=== PATIENT | female | born 1990 | race Native Hawaiian/Other Pacific Islander ===

== ENCOUNTER → 2018-01-02 15:11 | Outpatient (CLI) | payer OTHER, SELFPAY ==
[2018-01-02 15:46] LABS: Appearance Urine UA CLEAR; Bilirubin Urine UA NEGATIVE (NEGATIVE); Color Urine UA YELLOW; Glucose Urine UA NEGATIVE (Normal); Ketones Urine UA NEGATIVE (NEGATIVE); Leukocyte Esterase Urine UA NEGATIVE (NEGATIVE); Nitrite Urine UA Negative (Negative); Occult Blood Urine UA TRACE-LYSED (Negative); Protein Urine UA NEGATIVE (Negative); Specific Gravity Urine UA 1.015 (1.000-1.035); Urobilinogen Urine UA 0.2 E.U./dL (0.2)
[2018-01-02 15:47] LABS: Add Manual Diff / Slide Review NO; Basophils Percent Auto 0.7 % (0-2); Eosinophils Percent Auto 1.6 % (2-4); Hemoglobin 14.6 g/dL (12.0-16.0); Lymphocytes Percent Auto 22.8 % (25-40); Mean Corpuscular Hemoglobin 28.2 PG (26-34); Neutrophils Absolute Auto 5200 /uL (3000-5900); Neutrophils Percent Auto 66.9 % (50-75); Platelet Count 297 X10^3/uL (150-400); Red Blood Cell Count 5.18 X10^6/uL (4.0-5.2); Red Cell Distribution Width 12.9 % (11.6-14.8); White Blood Cell Count 7.8 X10^3/uL (4.5-11.0)
[2018-01-02 17:32] LABS: HCG Quantitative /Beta subunit 42845 mIU/mL
[2018-01-03 18:42] LABS: Hepatitis B Surface Antigen NEGATIVE s/c (NEGATIVE); Rubella Antibody IgG 28.1 IU/mL (>15)
[2018-01-03 18:56] LABS: HIV 1 and 2 Antibody NEGATIVE (NEGATIVE); Hep C Virus Ab w/Reflex Quant NEGATIVE s/c (NEGATIVE)
[2018-01-04 14:53] LABS: HSV 2 IGG AB < 0.90 index (< 0.90); HSV1IGG < 0.90 index (< 0.90)
[2018-01-09 20:49] LABS: Rapid Plasma Reagin NON-REACTIVE
== END ==
PROVIDERS: Family Provider Family Medicine; PCP Family Medicine; Visit Provider Family Medicine
DX: O02.0 Blighted ovum and nonhydatidiform mole (principal); Z34.90 Encounter for supervision of normal pregnancy, unspecified, unspecified trimester; Z34.81 Encounter for supervision of other normal pregnancy, first trimester; Z3A.01 Less than 8 weeks gestation of pregnancy
CPT/HCPCS: 36415; 80055; 81003; 84702; 86695; 86696; 86703; 86787; 86803; 86850; 86900; 86901; 87086

== ENCOUNTER → 2018-02-05 11:30 | Outpatient (CLI) | payer OTHER, SELFPAY ==
[2018-02-11 11:48] LABS: AFP, Serum 21.1 ng/mL; Calc Gestational Age 15.7; Cigarette Smoker N; Donated Egg NOT GIVEN; Donor Egg Age NOT GIVEN; Estriol, Free 0.77 ng/mL; Inhibin A, Dimeric 155 pg/mL; Maternal Ethnicity OTHER; Maternal Weight 207 lbs; Number of Fetuses 1; Previous Pregnancy Down Syndro NOT GIVEN; hCG, MoM 0.72
== END ==
PROVIDERS: Family Provider Family Medicine; PCP Family Medicine; Visit Provider Family Medicine
DX: Z34.82 Encounter for supervision of other normal pregnancy, second trimester (principal)
CPT/HCPCS: 36415; 82105; 82677; 84702; 86336

== ENCOUNTER → 2018-03-05 08:10 | Outpatient (CLI) | payer OTHER, SELFPAY ==
--- NOTE | 2018-03-05 08:11 | DI.US.S_ITS ---
PROCEDURE: US OB >= 14 WEEKS FETUS INDICATIONS: ANATOMIC SURVEY OUTSIDE/PRIOR DATING DATA: Last menstrual period (LMP): Unknown. LMP-based estimated date of delivery (MANDY): N./A.. First dating scan (date and location): 01/06/18. Estimated date of delivery (MANDY) from first dating scan: 07/25/18. TECHNIQUE: Real-time scanning was performed of the fetus, with image documentation and biometric measurements. Endovaginal scanning: No COMPARISON: [facility], , OB <= 14 WK FETUS ADD GEST, 01/06/2018, 9:00. FINDINGS: General: A single living intrauterine gestation is present. Presentation: Transverse. Placenta: Placental position is anterior, without previa. Amniotic fluid index: 16.6 cm, normal range is 5-24 cm. heart rate: 152 beats per minute. Maternal cervical canal: 6.8 cm long. Normal lower limit is 2.5 cm. biometrics: Biparietal diameter: 20 weeks 2 days Head circumference: 20 weeks 3 days Abdominal circumference: 20 weeks 3 days Femur length: 20 weeks Estimated gestational age from initial scan: 19 weeks 5 days Composite gestational age from present scan: 20 weeks 2 days Estimated weight and percentile: 344 g; the 78th percentile Measurement variability for biometric dating: +/- 7 days from 14 weeks to 15 weeks 6 days gestation, +/- 10 days from 16 weeks to 21 weeks 6 days gestation, +/- 2 weeks from 22 weeks to 27 weeks 6 days gestation, +/- 3 weeks for 28 weeks gestation or later. weight reference: 4500 g or EFW >90/95% is considered macrosomia or large for gestational age. EFW <10% is small for gestational age. EFW 5% or less is considered intra-uterine growth restriction. Anatomic survey: Neuro: Ventricles are non-dilated at less than 10 mm. Cisterna magna is normal at 3-11 mm. Cerebellum is normal in size and morphology. Nuchal skin fold: Normal at less than 6 mm between 14-21 weeks gestational age. Face: Nose and lips, facial profile are normal. Spine: No evidence for spina bifida. Heart: 4-chambered heart is present, with normal ventricular outflow tracts. Diaphragm: Diaphragm is intact. Stomach: Left-sided stomach is present. Kidneys: No hydronephrosis. Normal is less than 5 mm in 2nd trimester, less than 7 mm in 3rd trimester. Cord: 3-vessel cord has orthotopic insertion. Bladder: Normal in size. Extremities: All 4 extremities identified. IMPRESSION: 1. Single living IUP redemonstrated and interval growth is normal. 2. Normal anatomic survey. Dictated by: Renny Pearson [facility] Interpreted: Donavan Lopez MD on 03/05/2018 at 11:21 Approved by: Donavan Lopez M.D. on 03/05/2018 at 13:22
== END ==
PROVIDERS: PCP Family Medicine; Visit Provider Family Medicine
DX: Z34.82 Encounter for supervision of other normal pregnancy, second trimester (principal); Z36.89 Encounter for other specified antenatal screening; Z3A.20 20 weeks gestation of pregnancy
CPT/HCPCS: 76811

== ENCOUNTER → 2018-04-02 09:52 | Outpatient (CLI) | payer OTHER, SELFPAY ==
[2018-04-02 12:14] LABS: Hematocrit 37.9 % (36-46); Hemoglobin 12.7 g/dL (12.0-16.0)
[2018-04-02 12:27] LABS: GTT (PREG) 1 Hour PP 50gm Dose 140 mg/dL (76-139)
== END ==
PROVIDERS: PCP Family Medicine; Visit Provider Family Medicine
DX: Z34.82 Encounter for supervision of other normal pregnancy, second trimester (principal); Z3A.26 26 weeks gestation of pregnancy
CPT/HCPCS: 36415; 82950; 85014; 85018

== ENCOUNTER 2018-05-12 11:10 | Observation (INO) | payer OTHER, SELFPAY ==
--- NOTE | 2018-05-12 12:17 | DI.US.S_ITS ---
PROCEDURE: US OB TRANSVAGINAL INDICATIONS: cervical length OUTSIDE/PRIOR DATING DATA: Last menstrual period (LMP): Unknown. First dating scan (date and location): 01/06/18. Estimated date of delivery (MANDY) from first dating scan: 07/25/18. TECHNIQUE: Real-time scanning was performed of the fetus, with image documentation. COMPARISON: [facility], , US OB <= 14 WK FETUS ADD GEST, 01/06/2018, 9:00. [facility], , US OB >= 14 WEEKS FETUS, 03/05/2018, 8:45. FINDINGS: A single living intrauterine gestation is present. Presentation: Vertex heart rate: 152 beats per minute. Maternal cervical canal: 4.7 cm long. Normal lower limit is 2.5 cm. No evidence of endocervical fluid distention or funneling. Estimated gestational age from initial scan: 29 weeks 3 days. IMPRESSION: 1. Limited study demonstrates a single living intrauterine in vertex position. 2. Cervix is normal in length without endocervical fluid distention or funneling. Dictated by: Brando Rogers M.D. on 05/12/2018 at 13:29 Approved by: Brando Rogers M.D. on 05/12/2018 at 13:31
[2018-05-12] MEDS: NIFEdipine 10 MG CAPSULE PO ×4 (12:30→13:35)
[2018-05-12 13:35] LABS: Bacteria Urine None Seen; RBC Urine None Seen (0-5/HPF)
[2018-05-12 13:46] LABS: Culture Indicated Urine Cult Not Indicated; Squamous Epithelial Cell Urine 0-1 /HPF; WBC Urine 0-1/HPF (0-5/HPF)
== END 2018-05-12 14:15 | disposition home or self-care (01) ==
PROVIDERS: Admitting Provider Family Medicine; PCP Family Medicine; Visit Provider Family Medicine
DX: O60.03 Preterm labor without delivery, third trimester (principal); Z3A.29 29 weeks gestation of pregnancy; O26.23 Pregnancy care for patient with recurrent pregnancy loss, third trimester
CPT/HCPCS: 59025; 59050; 76817; 81015; G0378; G0379

== ENCOUNTER → 2018-05-22 09:11 | Outpatient (CLI) | payer OTHER, SELFPAY ==
--- NOTE | 2018-05-22 09:14 | DI.US.S_ITS ---
PROCEDURE: US OB LIMITED INDICATIONS: size and dates OUTSIDE/PRIOR DATING DATA: Last menstrual period (LMP): None available. LMP-based estimated date of delivery (MANDY): Not applicable. First dating scan (date and location): 01/06/18. Estimated date of delivery (MANDY) from first dating scan: 07/25/18. TECHNIQUE: Real-time scanning was performed of the fetus, with image documentation. Endovaginal scanning: Yes COMPARISON: None. FINDINGS: A single living intrauterine gestation is present. Presentation: Vertex Placenta: Placental position is anterior, without previa. Amniotic fluid index: 20.1 cm, normal range is 5-24 cm. heart rate: 153 beats per minute. Maternal cervical canal: 4.7 cm long. Normal lower limit is 2.5 cm. Estimated gestational age from initial scan: 30 week 6 day. BPD: 8.3 cm, 33 weeks 2 days HC: 31.0 cm, 34 week 5 days A.c.: 13.7 cm, 34 weeks 5 days FL: 5.9 cm 30 weeks 4 days Estimated gestational age based on current study is 33 weeks 2 days. Estimated weight is 2189 g and is at 98%. IMPRESSION: Single live intrauterine with fetus in vertex presentation. heart rate is 153 beats per minute. Cervical length is 4.7 cm. Estimated gestational age based on initial study has 30 week 6 day. Estimated gestational age based on current study is 33 weeks 2 days. Estimated weight is 2189 g. Dictated by: Donavan Lopez M.D. on 05/22/2018 at 11:06 Approved by: Donavan Lopez M.D. on 05/22/2018 at 11:11
== END ==
LOC: US 09:13
PROVIDERS: PCP Family Medicine; Visit Provider Family Medicine
DX: O47.9 False labor, unspecified (principal); Z3A.30 30 weeks gestation of pregnancy
CPT/HCPCS: 76815; 76830

== ENCOUNTER 2018-06-02 14:25 | Observation (INO) | payer OTHER, SELFPAY ==
[2018-06-02] MEDS: NIFEdipine 10 MG CAPSULE PO ×3 (16:00→16:45)
--- NOTE | 2018-06-04 12:56 | PM.OBTRLD ---
Visit Information Visit Information Date of evaluation: 06/02/18 Primary OB Provider: Juan Antonio Mack On-call OB Provider: Carla Sanchez Reason for Evaluation: Yes pre-term labor Vital Signs Vital Signs: Blood pressure 132/66, pulse of 89, temperature 36.5? PFSH Social History marital status: household members: spouse and children Smoking Status: Former smoker alcohol intake: never substance use type: does not use Review of Systems Review of Systems Patient complaining of contractions. She has a history of 2 prior labors with 1 delivery. She has been on nifedipine for some time but stopped it due to side effects. Patient denies any leakage of fluid. Good movement. All systems reviewed & are unremarkable except as noted in HPI and below Evaluation Evaluation Baseline heart rate: 150 Variability: Moderate (11-25) monitor accelerations: Present monitor decelerations: Absent Contraction Frequency (minutes): 8 Uterine Contraction Intensity: Mild Category of Tracing: I Diagnosis, Plan/Disposition Final Diagnosis (1) Premature labor: Current Visit: No Status: Acute (2) 32 weeks gestation of : Current Visit: No Status: Acute Plan/Disposition Plan: Patient was given 2 oral doses of short-acting nifedipine. Her contractions decreased. She was sent home to continue taking her long-acting nifedipine. OB Disposition: home
== END 2018-06-02 17:05 | disposition home or self-care (01) ==
PROVIDERS: Admitting Provider Family Medicine; PCP Family Medicine; Visit Provider Family Medicine
DX: O60.03 Preterm labor without delivery, third trimester (principal); Z3A.32 32 weeks gestation of pregnancy; O26.23 Pregnancy care for patient with recurrent pregnancy loss, third trimester
CPT/HCPCS: 59025; 59050; G0378; G0379

== ENCOUNTER 2018-06-09 15:38 | Outpatient (CLI) | payer OTHER, SELFPAY | END 2018-06-09 17:37 | disposition home or self-care (01) | LOC: LABOR 16:17 → OB 06-11 12:54 | PROVIDERS: PCP Family Medicine; Visit Provider Family Medicine | DX: O60.03 Preterm labor without delivery, third trimester (principal); Z3A.33 33 weeks gestation of pregnancy; O26.23 Pregnancy care for patient with recurrent pregnancy loss, third trimester | CPT/HCPCS: 59025; G0378; G0379 ==

== ENCOUNTER 2018-06-15 10:52 | Observation (INO) | payer OTHER, SELFPAY ==
--- NOTE | 2018-06-15 12:21 | PM.OBTRLD ---
Visit Information Visit Information Date of evaluation: 06/15/18 Primary OB Provider: Juan Antonio Mack On-call OB Provider: Carla Sanchez Reason for Evaluation: Yes non-stress test non-stress test reason: other (Patient fell and bathroom and hit her stomach on the toilet) PFSH Social History marital status: household members: spouse and children Smoking Status: Former smoker alcohol intake: never substance use type: does not use Exam Narrative Exam Narrative: Abdomen is soft. She has tenderness on the left side of her abdomen but no tenderness to her uterus on the right side. No obvious bruising. Evaluation Evaluation Baseline heart rate: 140 Variability: Moderate (11-25) monitor accelerations: Present monitor decelerations: Absent Contraction Frequency (minutes): 7 Uterine Contraction Intensity: Mild Category of Tracing: I Diagnosis, Plan/Disposition Final Diagnosis (1) Blunt abdominal trauma: Current Visit: Yes Status: Acute (2) 33 weeks gestation of : Current Visit: Yes Status: Acute Plan/Disposition Plan: Patient with blunt trauma to her abdomen but no evidence complications. Patient has been having mild cramping and is on nifedipine. She is to return if she has vaginal bleeding. Increasing rather than decreasing pain. Leakage of fluid or vaginal bleeding.
== END 2018-06-15 12:35 | disposition home or self-care (01) ==
PROVIDERS: Admitting Provider Specialist; PCP Family Medicine; Visit Provider Specialist
DX: O9A.213 Injury, poisoning and certain other consequences of external causes complicating pregnancy, third trimester (principal); Z3A.33 33 weeks gestation of pregnancy; S39.81XA Other specified injuries of abdomen, initial encounter; W18.39XA Other fall on same level, initial encounter
CPT/HCPCS: 59025; 59050; G0378; G0379

== ENCOUNTER → 2018-06-24 13:55 | Outpatient (CLI) | payer OTHER, SELFPAY ==
[2018-06-25 12:24] LABS: Strep Grp B PCR NEG for Grp B Strep
== END ==
LOC: LAB 13:55
PROVIDERS: PCP Family Medicine; Visit Provider Family Medicine
DX: Z34.83 Encounter for supervision of other normal pregnancy, third trimester (principal); Z3A.35 35 weeks gestation of pregnancy
CPT/HCPCS: 87653

== ENCOUNTER 2018-06-27 13:20 | Outpatient (CLI) | payer OTHER, SELFPAY ==
--- NOTE | 2018-06-27 22:17 | P.TNLD_ITS ---
Visit Information Visit Information Date of evaluation: 06/27/18 Primary OB Provider: Juan Antonio Mack On-call OB Provider: Pari Ballard Reason for Evaluation: Yes rule out labor PFSH Social History marital status: household members: spouse and children Smoking Status: Former smoker alcohol intake: never substance use type: does not use Evaluation Evaluation Baseline heart rate: 140 Variability: Moderate (11-25) monitor accelerations: Present monitor decelerations: Absent Uterine Contraction Intensity: Mild Cervical dilation (cm): 0 Cervical effacement (%): 0 station: +4 Diagnosis, Plan/Disposition Final Diagnosis (1) 36 weeks gestation of : Current Visit: No Status: Acute (2) contractions: Current Visit: No Status: Acute Plan/Disposition Plan: 27 year old at 36+1 wks with irregular contractions. Cervix was c losed, thick and high per RN. NST reactive. Discharged home with return precautions. Follow up with Dr. Mack as scheduled. OB Disposition: home
== END 2018-06-27 14:20 | disposition home or self-care (01) ==
LOC: OB 07-01 14:14
PROVIDERS: PCP Family Medicine; Visit Provider Family Medicine
DX: O47.03 False labor before 37 completed weeks of gestation, third trimester (principal); Z3A.36 36 weeks gestation of pregnancy
CPT/HCPCS: 59025; G0378; G0379

== ENCOUNTER 2018-06-29 15:16 | Outpatient (CLI) | payer OTHER, SELFPAY ==
--- NOTE | 2018-06-29 16:03 | PM.OBTRLD ---
Visit Information Visit Information Date of evaluation: 06/29/18 Primary OB Provider: Juan Antonio Mack On-call OB Provider: Pari Ballard Reason for Evaluation: Yes rupture of membranes [facility] Medical History Depression (Chronic ~2008) History of irregular menstrual cycles (Chronic) Chicken pox (Resolved ~1997) MRSA (methicillin resistant Staphylococcus aureus) (Resolved ~2009) Surgical History Status post delivery (06/20/11) Status post delivery (01/20/14) Status post delivery (11/21/16) Family History Father Age: 63 Hypertension Social History marital status: household members: spouse and children Smoking Status: Former smoker alcohol intake: never substance use type: does not use Family History Father Age: 63 Hypertension Social History marital status: household members: spouse and children Smoking Status: Former smoker alcohol intake: never substance use type: does not use Evaluation Evaluation Baseline heart rate: 150 Variability: Moderate (11-25) monitor accelerations: Present monitor decelerations: Absent Non-invasive Membranes Rupture Test: negative Diagnosis, Plan/Disposition Final Diagnosis (1) 36 weeks gestation of : Current Visit: No Status: Acute Plan/Disposition Plan: Patient came in with concerns for ROM. Amnisure was negative. NST reactive. Irregular, non-painful contractions. Patient instructed to follow up in clinic as scheduled.
--- NOTE | 2018-06-29 16:06 | P.TNLD_ITS ---
Visit Information Visit Information Date of evaluation: 06/29/18 Primary OB Provider: Juan Antonio Mack On-call OB Provider: Pari Ballard Reason for Evaluation: Yes rupture of membranes [facility] Medical History Depression (Chronic ~2008) History of irregular menstrual cycles (Chronic) Chicken pox (Resolved ~1997) MRSA (methicillin resistant Staphylococcus aureus) (Resolved ~2009) Surgical History Status post delivery (06/20/11) Status post delivery (01/20/14) Status post delivery (11/21/16) Family History Father Age: 63 Hypertension Social History marital status: household members: spouse and children Smoking Status: Former smoker alcohol intake: never substance use type: does not use Family History Father Age: 63 Hypertension Social History marital status: household members: spouse and children Smoking Status: Former smoker alcohol intake: never substance use type: does not use Evaluation Evaluation Baseline heart rate: 150 Variability: Moderate (11-25) monitor accelerations: Present monitor decelerations: Absent Non-invasive Membranes Rupture Test: negative Diagnosis, Plan/Disposition Final Diagnosis (1) 36 weeks gestation of : Current Visit: No Status: Acute Plan/Disposition Plan: Patient came in with concerns for ROM. Amnisure was negative. NST reactive. Irregular, non-painful contractions. Patient instructed to follow up in clinic as scheduled.
== END 2018-06-29 16:04 | disposition home or self-care (01) ==
LOC: LABOR 16:02 → OB 07-01 14:15
PROVIDERS: PCP Family Medicine; Visit Provider Family Medicine
DX: Z03.71 Encounter for suspected problem with amniotic cavity and membrane ruled out (principal); Z3A.36 36 weeks gestation of pregnancy
CPT/HCPCS: 59025; 84112; G0378; G0379

== ENCOUNTER 2018-07-07 11:33 | Outpatient (CLI) | payer OTHER, SELFPAY ==
--- NOTE | 2018-07-07 12:41 | DI.US.S_ITS ---
PROCEDURE: US OB LIMITED INDICATIONS: check scar tissue from previous OUTSIDE/PRIOR DATING DATA: Last menstrual period (LMP): None available. LMP-based estimated date of delivery (MANYD): Not applicable. First dating scan (date and location): 01/06/2018. Estimated date of delivery (MANDY) from first dating scan: 07/25/2018. TECHNIQUE: Real-time scanning was performed of the fetus, with image documentation. Endovaginal scanning: Yes COMPARISON: [facility], OB >= 14 WEEKS FETUS, 03/05/2018, 8:45. [facility] OB TRANSVAGINAL, 05/12/2018, 12:52. [facility] OB LIMITED, 05/22/2018, 9:57. FINDINGS: A single living intrauterine gestation is present. Presentation: Vertex Placenta: Placental position is anterior, without previa. Amniotic fluid index: 17.1 cm, normal range is 5-24 cm. heart rate: 157 beats per minute. Maternal cervical canal: 3.7 cm long. Normal lower limit is 2.5 cm. Estimated gestational age from initial scan: 37 week 3 day. Note is made of near complete nuchal cord. The scar is at the placenta edge. IMPRESSION: 1. A single living intrauterine gestation redemonstrated. 2. Near complete nuchal cord. 3. The scar is at the placenta edge. Dictated by: Roman Lindo M.D. on 07/07/2018 at 16:55 Approved by: Roman Lindo M.D. on 07/07/2018 at 17:01
== END 2018-07-07 13:25 | disposition home or self-care (01) ==
LOC: LABOR 12:00 → OB 07-08 11:16
PROVIDERS: PCP Family Medicine; Visit Provider Family Medicine
DX: O26.23 Pregnancy care for patient with recurrent pregnancy loss, third trimester (principal); R10.9 Unspecified abdominal pain; Z3A.37 37 weeks gestation of pregnancy
CPT/HCPCS: 59025; 59050; 76815; G0378; G0379

== ENCOUNTER 2018-07-10 23:32 | Outpatient (CLI) | payer OTHER, SELFPAY | END 2018-07-11 00:10 | disposition home or self-care (01) | LOC: LABOR 23:39 → OB 07-11 11:43 | PROVIDERS: PCP Family Medicine | DX: Z36.9 Encounter for antenatal screening, unspecified (principal) | CPT/HCPCS: 59025; G0378; G0379 ==

== ENCOUNTER → 2018-07-11 12:32 | Outpatient (CLI) | payer OTHER, SELFPAY ==
[2018-07-11 13:01] LABS: Add Manual Diff / Slide Review NO; Basophils Absolute Auto 100 /uL (0-100); Basophils Percent Auto 1.1 % (0-2); Eosinophils Absolute Auto 100 /uL (0-450); Eosinophils Percent Auto 1.1 % (2-4); Hematocrit 38.7 % (36-46); Hemoglobin 13.1 g/dL (12.0-16.0); Lymphocytes Absolute Auto 1400 /uL (1100-4500); Lymphocytes Percent Auto 21.1 % (25-40); Mean Corpuscular HGB Conc 33.7 % (30-36); Mean Corpuscular Hemoglobin 26.4 PG (26-34); Mean Corpuscular Volume 78.2 fL (80-100); Monocytes Absolute Auto 500 /uL (0-900); Monocytes Percent Auto 7.4 % (3-14); Neutrophils Absolute Auto 4700 /uL (1500-7000); Neutrophils Percent Auto 69.3 % (50-75); Platelet Count 237 X10^3/uL (150-400); Red Blood Cell Count 4.95 X10^6/uL (4.0-5.2); Red Cell Distribution Width 13.6 % (11.6-14.8); White Blood Cell Count 6.8 X10^3/uL (4.5-11.0)
[2018-07-11 15:48] LABS: Alanine Aminotransferase 24 IU/L (9-52); Albumin 3.7 g/dL (3.5-5.0); Albumin Globulin Ratio 1.2 (1.0-2.8); Alkaline Phosphatase 163 U/L (38-126); Aspartate Aminotransferase 17 IU/L (14-36); Bilirubin Total 0.4 mg/dL (0.2-1.3); Blood Urea Nitrogen 9 mg/dL (7-17); Calcium 9.2 mg/dL (8.4-10.2); Carbon Dioxide 22 mmol/L (22-32); Chloride 105 mmol/L (98-107); Estimated Glomerular Filt Rate > 60.0 mL/min (>60); Glucose 64 mg/dL (70-100); HEMOLYSIS < 15 (0-50); Potassium 4.5 mmol/L (3.4-5.1); Sodium 136 mmol/L (137-145); Total Protein 6.7 g/dL (6.3-8.2)
[2018-07-11 15:50] LABS: Creatinine Urine Random 69.1 mg/dL; Protein (Total) Urine Random 19 mg/dL (0-12); Protein Creatinine Ratio Urine 0.27 GRAM/24H
== END ==
PROVIDERS: PCP Family Medicine; Visit Provider Family Medicine
DX: O16.3 Unspecified maternal hypertension, third trimester (principal)
CPT/HCPCS: 36415; 80053; 82570; 84156; 85025

== ENCOUNTER 2018-07-21 05:41 | Inpatient (IN) | payer OTHER, SELFPAY ==
[2018-07-21] VITALS (63 sets, daily range): BP systolic 73–157; BP diastolic 37–88; PULSE 61–104; RESP 7–22; TEMP 35.6–37.3; O2SAT 97–100
--- NOTE | 2018-07-21 | PATH_ITS ---
[facility] Accession Number: [id number] . 01 Material submitted: . fallopian tube - BILATERAL SEGMENTS OF FALLOPIAN TUBES . 02 Diagnosis: Segments of Right and Left Fallopian Tubes (Sterilization Procedure): No significant pathologic change. MRV/07/23/2018 . 02 Electronically signed: . Robi Martinez MD, Pathologist NPI- [id number] . 01 Gross description: . Received in one formalin-filled container, labeled with the patient's name and labeled homa segments of fallopian tubes, are two non-fimbriated, cylindrical-shaped portions of tissue. The first measures 0.9 x 0.6 x 0.6 cm; inked blue, sectioned into three pieces, and entirely submitted in cassette A1. The second piece measures 1.0 x 0.6 x 0.6 cm; inked blue, sectioned into three pieces, and entirely submitted in cassette A2. ([id number]) /FRR . 02 Pathologist provided ICD-10: Z30.2 . 02 CPT . 923340 Specimen Comment: A duplicate report has been generated due to demographic updates. Performed at: 01 [facility] [address], [place], [place] [id number] MD Brando Durant MD Phone: [phone] Performed at: [facility] [address] [place], [place] [id number] MD Dorcas Lemon MD Phone: [phone]
[2018-07-21] MEDS: LACTATED RINGERS 1,000 ML 1000 ML IV ×3 (06:46→10:52)
[2018-07-21] MEDS: CITRIC ACID/SODIUM CITRATE 15 ML SOLUTION 30 ML PO (06:47)
--- NOTE | 2018-07-21 07:11 | PM.HP.1 ---
History of Present Illness Date Patient Seen: 07/21/18 Time Patient Seen: 07:12 Chief complaint: [id number] REPEAT W/BTL Narrative: Patient is a 27-year-old female 9 para 3 estimated due date of 07/25/2018 consistent with LMP early ultrasound. care was complicated by labor this is her 4th and here in the last week has had some hypertension. Patient has been excited to have her baby since 20/6 weeks. And has been regularly in the Center for frequent evaluations because of labor. She was initially on nifedipine and this was stopped at 36 weeks. She has continued to contract. Recent blood pressure evaluation showed elevated blood pressure. But normal AST ALT mildly elevated alkaline phosphatase and mildly elevated urine protein patient has no swelling. Blood pressure is elevated this morning. No headaches blurry vision right upper quadrant pain or swelling and edema. She began care at 11 weeks and had a number of visits throughout . Total weight gains approximately 20 lb. care as previously mentioned was complicated by labor. 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 Family history of high blood pressure history of anemia history of MRSA. Previous and D& C. Family history of depression as well as mom had mild depression. Medications during included vitamins and nifedipine. labs show blood type A positive antibody screen negative hematocrit 43 and hemoglobin 14.6 platelet 297 VDRL negative HIV negative chlamydia and GC negative rubella immune. Hepatitis-C negative 2nd trimester integrated screening negative diabetes screen 140 patient diet changes were recommended. GBS testing was negative ultrasound at 20 weeks was normal. Reviewed with patient and who was at her bedside this morning the procedure including risks benefits and common complications of repeat section X specially since this is her 4th. Patient is anticipated tubal ligation we discussed that with her and her . Written verbal and informed consent was obtained. Her consent was updated. Patient History Family & Social History Social History: household members spouse,children Tobacco & Substance use: Smoking Status Former smoker alcohol intake never Meds Home Medications Medication Instructions Recorded Confirmed Type Vitamins (PRENAVITE) 1 tab PO QDAY #30 tab 04/16/16 03/18/18 Rx guanfacine 2 mg tablet 2 mg PO BEDTIME #30 tab 01/06/18 03/18/18 Rx amoxicillin 875 mg tablet 875 mg PO BID #14 tab 03/18/18 Rx benzonatate 200 mg capsule 200 mg PO TID PRN #30 cap 03/18/18 Rx nifedipine 10 mg capsule 10 mg PO TID PRN #30 cap 05/12/18 Rx nifedipine ER 30 mg 30 mg PO BID #60 tab 05/12/18 Rx tablet,extended release Allergies Allergy/AdvReac Type Severity Reaction Status Date / Time No Known Drug Allergies Allergy Verified 03/18/18 11:42 Exam Narrative Exam Narrative: . General: Alert no apparent distress. Affect is appropriate. [place]illiam it is uncomfortable. HEENT: Neck is supple without lymphadenopathy pupils equal round and reactive. Cardio: S1-S2 regular rate and rhythm. Respiratory: Lungs clear to auscultation. Abdomen: Gravid. Extremities: Normal deep tendon reflexes trace edema. Green: Intermittent contractions heart tones: 130-140 category 1 Assessment & Plan Assessment & Plan narrative: 27-year-old female G9 para 3 patient at 39 weeks gestational age for repeat section. complicated with labor starting at 27 weeks medications stopped 36 week last few days of hypertension although preeclamptic lab work is negative. Reviewed consent with patient and . Patient was consented for with bilateral tubal ligation risks benefits of the procedure were reviewed. This is her 4th . Patient had IV started. heart tracing and toco were reviewed. CBC and blood type and screen were ordered. Patient will have cephazolin on-call for the operating room. Patient will have spinal for anesthesia for the . Questions were answered that the patient and had.
--- NOTE | 2018-07-21 07:18 | P.HP_ITS ---
History of Present Illness Date Patient Seen: 07/21/18 Time Patient Seen: 07:12 Chief complaint: [id number] REPEAT W/BTL Narrative: Patient is a 27-year-old female 9 para 3 estimated due date of 07/25/2018 consistent with LMP early ultrasound. care was complica xuan by labor this is her 4th and here in the last week has had some hypertension. Patient has been excited to have her baby since 20/6 weeks. And has been regularly in the Center for frequent evaluations because of labor. She was initially on nifedipine and this was stopped at 36 weeks. She has continued to contract. Recent blood pressure evaluation showed elevated blood pressure. But normal AST ALT mildly elevated alkaline phosphatase and mildly elevated urine protein patient has no swelling. Blood pressure is elevated this morning. No headaches blurry vision right upper quadrant pain or swelling and edema. She began care at 11 weeks and had a number of visits throughout . Total weight gains approximately 20 lb. care as previously mentioned was complicated by labor. 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 Family history of high blood pressure history of anemia history of MRSA. Previous and D& C. Family history of depression as well as mom had mild depression. Medications during included vitamins and nifedipine. labs show blood type A positive antibody screen negative hematocrit 43 and hemoglobin 14.6 platelet 297 VDRL negative HIV negative chlamydia and GC negative rubella immune. Hepatitis-C negative 2nd trimester integrated screening negative diabetes screen 140 patient diet changes were recommended. GBS testing was negative ultrasound at 20 weeks was normal. Reviewed with patient and who was at her bedside this morning the procedure including risks benefits and common complications of repeat section X specially since this is her 4th. Patient is anticipated tubal ligati on we discussed that with her and her . Written verbal and informed consent was obtained. Her consent was updated. Patient History Family & Social History Social History: household members spouse,children Tobacco & Substance use: Smoking Status Former smoker alcohol intake never Meds Home Medications Medication Instructions Recorded Confirmed Type Vitamins (PRENAVITE) 1 tab PO QDAY #30 tab 04/16/16 03/18/18 Rx guanfacine 2 mg tablet 2 mg PO BEDTIME #30 tab 01/06/18 03/18/18 Rx amoxicillin 875 mg tablet 875 mg PO BID #14 tab 03/18/18 Rx benzonatate 200 mg capsule 200 mg PO TID PRN #30 cap 03/18/18 Rx nifedipine 10 mg capsule 10 mg PO TID PRN #30 cap 05/12/18 Rx nifedipine ER 30 mg 30 mg PO BID #60 tab 05/12/18 Rx tablet,extended release Allergies Allergy/AdvReac Type Severity Reaction Status Date / Time No Known Drug Allergies Allergy Verified 03/18/18 11:42 Exam Narrative Exam Narrative: . General: Alert no apparent distress. Affect is appropriate. [place] it is uncomfortable. HEENT: Neck is supple without lymphadenopathy pupils equal round and reactive. Cardio: S1-S2 regular rate and rhythm. Respiratory: Lungs clear to auscultation. Abdomen: Gravid. Extremities: Normal deep tendon reflexes trace edema. [place]: Intermittent contractions heart tones: 130-140 category 1 Assessment & Plan Assessment & Plan narrative: 27-year-old female G9 para 3 patient at 39 weeks gestational age for repeat section. complicated with labor starting at 27 weeks medications stopped 36 week last few days of hypertension although preeclamptic lab work is negative. Reviewed consent with patient and . Patient was consented for with bilateral tubal ligation risks benefits of the procedure were reviewed. This is her 4th C- section. Patient had IV started. heart tracing and toco were reviewed. CBC and blood type and screen were ordered. Patient will have cephazolin on- call for the operating room. Patient will have spinal for anesthesia for the C- section. Questions were answered that the patient and had.
[2018-07-21 07:21] LABS: Add Manual Diff / Slide Review NO; Basophils Absolute Auto 100 /uL (0-100); Basophils Percent Auto 0.7 % (0-2); Eosinophils Absolute Auto 200 /uL (0-450); Hematocrit 38.7 % (36-46); Hemoglobin 12.6 g/dL (12.0-16.0); Lymphocytes Absolute Auto 1800 /uL (1100-4500); Lymphocytes Percent Auto 22.4 % (25-40); Mean Corpuscular HGB Conc 32.5 % (30-36); Mean Corpuscular Hemoglobin 25.8 PG (26-34); Mean Corpuscular Volume 79.2 fL (80-100); Monocytes Absolute Auto 700 /uL (0-900); Monocytes Percent Auto 8.9 % (3-14); Neutrophils Absolute Auto 5400 /uL (1500-7000); Platelet Count 234 X10^3/uL (150-400); Red Blood Cell Count 4.89 X10^6/uL (4.0-5.2); White Blood Cell Count 8.2 X10^3/uL (4.5-11.0)
[2018-07-21] MEDS: CEFAZOLIN 2 GM/100 ML FROZ.PIGGY IV ×2 (07:58→17:38)
--- NOTE | 2018-07-21 08:26 | SUR.OPER ---
Supine on padded OR bed, head on pillow, arms secured on padded arm boards at <90 degrees abduction, bump under right hip, legs uncrossed, safety belt at thigh, tape over blanket over lower legs.
[2018-07-21] MEDS: ACETAMINOPHEN IV 1,000 MG/100 ML VIAL 400 MG IV (08:48)
--- NOTE | 2018-07-21 09:01 | SUR.OPER ---
FHR 145 TOB at 08:31 alive boy Cord blood x 2 and placenta were given to OB nurse
--- NOTE | 2018-07-21 09:20 | PM.PROC.1 ---
Procedures Date/Time Date of procedure: 07/21/18 Time of procedure: 09:21 General Procedure description: Procedure: Lower segment transverse section Consent: Verbal and written informed consent were obtained from the patient placed on the chart. Indications: 27-year-old at 39 and 2 7 weeks gestational age for repeat section and tubal ligation Findings: intrauterine gestational male infant Apgars 8 and 9 tubes and ovaries were inspected and were normal before tubal ligation Anesthesia: spinal Duramorph Surgeon: Dr. Mack Trauma Registrar: Dr. Sanchez Estimated blood loss: 500 cc Drains: Douglas to gravity. IV fluids: 1400 cc Description of procedure: The patient was brought to the operating room after her spinal epidural, preparation, and Douglas had been performed. The abdomen was prepped and draped in tested for for analgesia. When it was found to be adequate, a lower abdominal Pfannenstiel incision was made with first with a knife and cared down to the fascia with a second knife. The fascia was incised in the midline and extended laterally with a knife. Bleeding points were clamped with hemostats and Bovie coagulated. The rectus muscles were by blunt dissection. The rectus muscles were divided in the midline and the peritoneum was grasped with hemostats and carefully entered with Marina scissors. The incision was extended bilaterally. The bladder blade was then placed. The vesicoperitoneum was grasped with smooth pickups, entered with Metzenbaum scissors, and extended laterally. The bladder flap was created by gently blunt dissection and placed behind the bladder blade. The lower uterine segment was noted to be thin was carefully incised with the scalpel and extended laterally with the fingers. A live infant was found to be in vertex position. The head was then easily elevated with the hand. The baby was then suctioned and cried immediately, and was handed to the waiting attendant. The placenta was delivered manually. The uterus was explored with a wet lap sponge and found to be clear membranes. The first layer of the uterine closure was with running locking #1 chromic catgut suture. The second layer with an imbricating #1 chromic catgut suture. Hemostasis was carefully checked and found to be satisfactory. The fallopian tubes and ovaries were inspected and to be found normal bilaterally. The left fallopian tube was grasped with a Saturnino. 0 0 gut suture was tied around the [place]. Twice and a Matheny fashion. S and intervening segment of the tube was removed with Marina scissors. Both ends of the tube were cauterized. This procedure was again then performed on the right side Fallopian tube. After sponge and needle counts were found to be correct the peritoneum was closed with 2-0 chromic catgut suture. Rectus muscles were approximated in the lower midline. The fascia was closed with a 2 running 0 Vicryl from lateral to midline. The subcutaneous tissue was approximated with interrupted 2.0 plain gut. Bleeding points were Bovie and coagulated. The subcutaneous tissue was approximated with 20 plain gut suture. The skin was closed with 1-0 running subcuticular stitch. Urinary output was adequate and normal patient left to the recovery room in Stable condition.
--- NOTE | 2018-07-21 09:35 | SUR.PHASEI ---
Report called to
--- NOTE | 2018-07-21 09:40 | SUR.PHASEI ---
Hr dropped to 43, pt vomited a small amt of clear, yellow fluid. Pt c/o feeling dizzy. Pt cleaned. Hr up to 99 and now down to 70. Nausea resolved but pt still reported intermittent dizziness. Dr. Whitehead notified. No new orders.
--- NOTE | 2018-07-21 10:24 | SUR.PHASEI ---
Shelby notified patient vomited, will watch patient longer. Patient checked and very large amt of blood was between patient's legs. VS stable. Dr. Fox in break room and notified pt bleeding, MD came to evaluate patient. Dr. Oleary came to assist. Dr. Mack called overhead at 0945 and arrived at 0947. Type and cross ordered per Dr. Fox, lab called stat overhead and arrived at 0947. LR with Pit flowing wide open with pressure bag at 0945. Hemorrhage cart arrived at 0948, 10 units IM Pit given at 0949 by Brandi Enrique. Continuous fundal massage by Dr. Fox. 800mg Cytotec given GA at 0952. BP 113/68 at 0954. Zofran given at [address] Whitehead. 20g IV started in RT AC by Ronn Rosario and LR bolus started at 0955 by Xuan Matson. VS stable and patient awake during care. patient taken to the OR at 1010. Pt's spouse was brought back to PACU. Approx blood loss was 1050 by weight. 250ml clear, elke urine emptied from yeh. Assisted with care: Dr. Fox, Dr. Oleary, Dr. Mack, Dr. Whitehead, Dr. Sanchez, Ronn Rosario, RN, Xuan Matson, RN, Sophia Emery, NATA, Anastasia Enrique, RN, Shelby Coates (recorder), RN, and Lauren Woodard from lab
--- NOTE | 2018-07-21 10:31 | SUR.OPER ---
Lithotomy on padded OR bed, head on pillow, arms secured on padded arm boards at <90 degrees abduction. Legs secured in padded yellow fins stirrups.
--- NOTE | 2018-07-21 10:55 | PM.PN.1 ---
Subjective Date Patient Seen: 07/21/18 Time Patient Seen: 09:55 Interval history: Called back to evaluate the patient in the operating room. Patient was having significant vaginal bleeding. On my arrival to the emergency room patient was receiving a fluid bolus and had fundal massage. Patient was surrounded by nursing staff Dr. Fox. Patient had significant amount of uterine bleeding. With blood loss of approximately 1000 cc. Patient was given 10 units of IM Pitocin as well as 10 units of Pitocin in her IV fluid bag which was opened wide up. Patient was responsive and her blood pressure was stable. Despite giving IM Pitocin in IV Pitocin. She was also given 100 mg of Cytotec rectally. Patient was continued to observe during this time her vital signs remained stable. But her bleeding from her uterus was still moderate. Her uterus was firm but still above the umbilicus. At that time a decision was made to take the patient back to the operating room for removal of clots and placement of a bacera baloon. Patient was consented for this procedure. Procedure was discussed with her and her who is at her bedside at this time including risks benefits and common complications. Exam Vital Signs (past 8 hours): - 07/21/18 07:24 07/21/18 09:17 07/21/18 09:22 Temperature 97.5 F L Pulse Rate 64 65 Respiratory Rate 12 12 Blood Pressure 157/88 H 122/64 122/65 Pulse Oximetry 97 97 07/21/18 09:27 07/21/18 09:32 07/21/18 09:37 Temperature Pulse Rate 63 63 73 Respiratory Rate 17 20 12 Blood Pressure 124/64 127/59 L 136/72 Pulse Oximetry 98 99 99 07/21/18 09:42 07/21/18 09:47 07/21/18 09:51 Temperature Pulse Rate 62 70 79 Respiratory Rate 7 L 22 Blood Pressure 121/61 119/63 120/62 Pulse Oximetry 98 97 98 07/21/18 09:53 07/21/18 09:58 07/21/18 09:59 Temperature Pulse Rate 65 64 62 Respiratory Rate 17 18 13 Blood Pressure 113/68 126/66 130/71 Pulse Oximetry 98 98 99 07/21/18 10:00 07/21/18 10:01 07/21/18 10:03 Temperature Pulse Rate 99 H 82 81 Respiratory Rate 15 16 15 Blood Pressure 139/82 136/74 140/77 Pulse Oximetry 97 99 98 07/21/18 10:04 07/21/18 10:05 07/21/18 10:07 Temperature Pulse Rate 64 72 65 Respiratory Rate 14 16 12 Blood Pressure 127/66 128/70 123/69 Pulse Oximetry 99 98 99 07/21/18 10:08 Temperature Pulse Rate 65 Respiratory Rate 13 Blood Pressure 123/63 Pulse Oximetry 99 Oxygen Delivery Method Room Air Narrative Exam Narrative: General: Patient is alert. Responsive. Blood pressure stable. Cardio: S1-S2 Respiratory: Normal respiratory effort Uterus: Uterus is firm but at umbilicus mildly higher patient also has moderate uterine bleeding Objective Labs Result Diagrams: 07/21/18 06:15 Labs: Laboratory Results - last 24 hr 07/21/18 07/21/18 06:15 06:15 WBC 8.2 RBC 4.89 Hgb 12.6 Hct 38.7 MCV 79.2 L MCH 25.8 L MCHC 32.5 RDW 14.0 Plt Count 234 Neut % (Auto) 66.0 Lymph % (Auto) 22.4 L [place] % (Auto) 8.9 Eos % (Auto) 2.0 Baso % (Auto) 0.7 Neut # (Auto) 5400 Lymph # (Auto) 1800 [place] # (Auto) 700 Eos # (Auto) 200 Baso # (Auto) 100 Blood Type A Positive Antibody Screen Negative Crossmatch See Detail Assessment & Plan Assessment & Plan narrative: Post hemorrhage. Patient with estimated blood loss of 1000 ml in recovery room. She was given IM Pitocin IV Pitocin and 100 mg Cytotec rectally. Patient was taken back to the operating room for a suction D and C and placement of a balloon. Patient will have serial hemoglobin hematocrit checked every 4 hours. She will be typed and crossed for 2 units and transfused if needed.
--- NOTE | 2018-07-21 11:15 | SUR.PHASEI ---
Pt fundus firm, 4+, small to mod amt of blood expressed around the balloon. Dr. Fox notified and evaluated patient. No new orders.
--- NOTE | 2018-07-21 11:32 | SUR.PHASEI ---
Dr. Whitehead called in center, with patient. Message left with Sophia regarding bp 87/47, hr 70s, o2 sats 100%ra. IV fluid rate increased. Bed placed in Trendelenburg. BP 103/56. Sophia called back with H&H order from Dr. Whitehead. [place] in lab notified draw needed.
[2018-07-21 11:34] LABS: Hemoglobin 11.1 g/dL (12.0-16.0)
[2018-07-21 11:53] LABS: Hematocrit 24.8 % (36-46); Hemoglobin 7.9 g/dL (12.0-16.0)
--- NOTE | 2018-07-21 11:59 | SUR.PHASEI ---
1140 Dr. Mack notified pt's bp dropped to 73/46, 120mls emptied from balloon. VVO to transfuse 2 units of PRBC. Lab notified. Blood brought by Isabel. Assisted by Xuan. Dr. Mack evaluated patient. Blood started, infusing wide open as per Dr. Mack.
--- NOTE | 2018-07-21 12:06 | SUR.PHASEI ---
Dr. Mack called, clarified to transfuse both units of PRBC, one after the other.
--- NOTE | 2018-07-21 12:21 | SUR.PHASEI ---
1st unit flushing, 2nd unit started
--- NOTE | 2018-07-21 12:23 | SUR.PHASEI ---
Scant amt of blood in balloon. Blood oozing out of vagina, peripad and chux changed. 210mls from pad/chux by weight per Sophia. Shelby assisting patient to breast feed.
--- NOTE | 2018-07-21 12:46 | SUR.PHASEI ---
Dr. Mack notified no measurable blood in balloon, 210ml weighed from chux/pad. Discussed patient status. No new orders.
--- NOTE | 2018-07-21 13:06 | SUR.PHASEI ---
Dr. Mack evaluated patient. minimal blood in balloon. Moderate amt to amaya-pad.
--- NOTE | 2018-07-21 13:29 | SUR.PHASEI ---
Pt transferred to the center. VS stable. Fundus and peripad and drsg checked with RN. IV saline locked x2. Pt reported that she feels much better. Family present. Report to Sarah.
[2018-07-21 14:14] LABS: Hematocrit 32.3 % (36-46); Hemoglobin 10.6 g/dL (12.0-16.0)
[2018-07-21] MEDS: HYDROMORPHONE 1 MG INJ IV (14:17)
[2018-07-21] MEDS: LACTATED RINGERS 1,000 ML 100 ML IV (14:54)
[2018-07-21] MEDS: METHYLERGONOVINE 0.2 MG TABLET PO ×2 (14:54→21:10)
[2018-07-21 15:13] LABS: Add Manual Diff / Slide Review NO; Basophils Absolute Auto 100 /uL (0-100); Basophils Percent Auto 0.5 % (0-2); Eosinophils Absolute Auto 0 /uL (0-450); Hematocrit 29.1 % (36-46); Hemoglobin 9.4 g/dL (12.0-16.0); Lymphocytes Absolute Auto 1100 /uL (1100-4500); Lymphocytes Percent Auto 6.2 % (25-40); Mean Corpuscular HGB Conc 32.5 % (30-36); Mean Corpuscular Hemoglobin 26.9 PG (26-34); Mean Corpuscular Volume 82.7 fL (80-100); Monocytes Absolute Auto 1400 /uL (0-900); Monocytes Percent Auto 7.8 % (3-14); Neutrophils Absolute Auto 14800 /uL (1500-7000); Neutrophils Percent Auto 85.5 % (50-75); Platelet Count 146 X10^3/uL (150-400); Red Blood Cell Count 3.52 X10^6/uL (4.0-5.2); Red Cell Distribution Width 14.7 % (11.6-14.8); White Blood Cell Count 17.3 X10^3/uL (4.5-11.0)
--- NOTE | 2018-07-21 15:15 | PM.PN.1 ---
Subjective Date Patient Seen: 07/21/18 Time Patient Seen: 15:15 Interval history: Patient seen and evaluated multiple times this afternoon. Update on care. Patient received 2 units packed red blood cells after the D&C and placement of the teodoro E Blue. Patient still had some low blood pressure episodes and her hemoglobin came back at 7. After 2 units of packed red blood cells. Patient blood pressure stabilized. Patient was less symptomatic. Despite this patient continued to have greater than 60 mL of output in the baloon. Dr. Fox was contacted who inflated the balloon to 480 cc. Patient's vital signs were stable at this point although a little bit low with systolic blood pressures between 90 and 100. She was still tachycardic. We repeated laboratory testing at 3:00 a.m. such as a CBC PT PTT INR and fibrinogen. Four more units of packed red blood cells were ordered. After increasing the balloon to 480 cc. We will continue to monitor and watch. If the bleeding still continues despite this patient will need to go back to the OR. Care plan was discussed with the patient and her who is at the bedside. Exam Vital Signs (past 8 hours): - 07/21/18 07:24 07/21/18 09:17 07/21/18 09:22 Temperature 97.5 F L Pulse Rate 64 65 Respiratory Rate 12 12 Blood Pressure 157/88 H 122/64 122/65 Pulse Oximetry 97 97 07/21/18 09:27 07/21/18 09:32 07/21/18 09:37 Temperature Pulse Rate 63 63 73 Respiratory Rate 17 20 12 Blood Pressure 124/64 127/59 L 136/72 Pulse Oximetry 98 99 99 07/21/18 09:42 07/21/18 09:47 07/21/18 09:51 Temperature Pulse Rate 62 70 79 Respiratory Rate 7 L 22 Blood Pressure 121/61 119/63 120/62 Pulse Oximetry 98 97 98 07/21/18 09:53 07/21/18 09:58 07/21/18 09:59 Temperature Pulse Rate 65 64 62 Respiratory Rate 17 18 13 Blood Pressure 113/68 126/66 130/71 Pulse Oximetry 98 98 99 07/21/18 10:00 07/21/18 10:01 07/21/18 10:03 Temperature Pulse Rate 99 H 82 81 Respiratory Rate 15 16 15 Blood Pressure 139/82 136/74 140/77 Pulse Oximetry 97 99 98 04/08/19 10:04 07/21/18 10:05 07/21/18 10:07 Temperature Pulse Rate 64 72 65 Respiratory Rate 14 16 12 Blood Pressure 127/66 128/70 123/69 Pulse Oximetry 99 98 99 07/21/18 10:08 07/21/18 11:01 07/21/18 11:03 Temperature 97.1 F L Pulse Rate 65 64 69 Respiratory Rate 13 12 16 Blood Pressure 123/63 99/52 L 105/66 Pulse Oximetry 99 100 99 07/21/18 11:06 07/21/18 11:11 07/21/18 11:16 Temperature Pulse Rate 72 63 62 Respiratory Rate 18 13 Blood Pressure 107/61 99/61 96/50 L Pulse Oximetry 100 100 99 07/21/18 11:21 07/21/18 11:22 07/21/18 11:26 Temperature Pulse Rate 65 67 61 Respiratory Rate 14 Blood Pressure 88/51 L 88/56 L 85/45 L Pulse Oximetry 99 99 07/21/18 11:28 07/21/18 11:31 07/21/18 11:36 Temperature Pulse Rate 62 71 63 Respiratory Rate 20 20 16 Blood Pressure 87/47 L 103/56 L 92/56 L Pulse Oximetry 99 100 100 07/21/18 11:38 07/21/18 11:41 07/21/18 11:46 Temperature Pulse Rate 71 67 67 Respiratory Rate 18 17 15 Blood Pressure 90/49 L 73/46 L 102/52 L Pulse Oximetry 99 100 100 07/21/18 11:47 07/21/18 11:51 07/21/18 11:54 Temperature 97.0 F L Pulse Rate 65 71 65 Respiratory Rate 17 18 16 Blood Pressure 102/52 L 98/55 L 99/60 Pulse Oximetry 100 100 100 07/21/18 11:57 07/21/18 12:02 07/21/18 12:03 Temperature Pulse Rate 67 74 74 Respiratory Rate 18 17 16 Blood Pressure 104/60 106/53 L 92/41 L Pulse Oximetry 99 99 100 07/21/18 12:07 07/21/18 12:13 07/21/18 12:19 Temperature 96.8 F L Pulse Rate 74 103 H 85 Respiratory Rate 15 17 Blood Pressure 93/52 L 95/58 L 106/37 L Pulse Oximetry 99 100 07/21/18 12:20 07/21/18 12:25 07/21/18 12:31 Temperature Pulse Rate 79 82 83 Respiratory Rate 17 9 L 16 Blood Pressure 90/50 L 87/49 L 107/52 L Pulse Oximetry 100 100 100 07/21/18 12:34 07/21/18 12:37 07/21/18 12:38 Temperature 96.4 F L Pulse Rate 86 94 H Respiratory Rate 16 Blood Pressure 92/46 L 98/52 L Pulse Oximetry 100 07/21/18 12:46 07/21/18 12:56 07/21/18 13:03 Temperature Pulse Rate 93 H 104 H 85 Respiratory Rate 15 12 10 L Blood Pressure 100/56 L 103/49 L 96/53 L Pulse Oximetry 100 100 100 07/21/18 13:05 Temperature 96.0 F L Pulse Rate Respiratory Rate Blood Pressure Pulse Oximetry Oxygen Delivery Method Room Air Narrative Exam Narrative: Patient is alert good historian Respiratory status is normal. Cardiac regular rate and rhythm Abdomen uterus is firm and 2 finger breaths above the umbilicus Extremities SCDs are on Objective Labs Result Diagrams: 07/21/18 14:05 Labs: Laboratory Results - last 24 hr 07/21/18 07/21/18 07/21/18 06:15 06:15 09:50 WBC 8.2 RBC 4.89 Hgb 12.6 11.1 L Hct 38.7 34.0 L MCV 79.2 L MCH 25.8 L MCHC 32.5 RDW 14.0 Plt Count 234 Neut % (Auto) 66.0 Lymph % (Auto) 22.4 L [place] % (Auto) 8.9 Eos % (Auto) 2.0 Baso % (Auto) 0.7 Neut # (Auto) 5400 Lymph # (Auto) 1800 [place] # (Auto) 700 Eos # (Auto) 200 Baso # (Auto) 100 Blood Type A Positive Antibody Screen Negative Crossmatch See Detail 07/21/18 07/21/18 11:45 14:05 WBC RBC Hgb 7.9 L 10.6 L Hct 24.8 L 32.3 L MCV MCH MCHC RDW Plt Count Neut % (Auto) Lymph % (Auto) [place] % (Auto) Eos % (Auto) Baso % (Auto) Neut # (Auto) Lymph # (Auto) [place] # (Auto) Eos # (Auto) Baso # (Auto) Blood Type Antibody Screen Crossmatch Assessment & Plan Assessment & Plan narrative: Status post with hemorrhage placement of Bockre Baloon. With initial insufflation of 300 cc of volume despite this patient was still having bleeding. She was given 2 units packed red blood cells. Balloon was then insufflated up to 480 cc. With monitoring closely of vitals and bleeding. On-call for operating room with patient bleeding continues. Type and screen and 4 units were ordered. Repeat blood counts were drawn including PT INR fibrinogen and hemoglobin hematocrit. Patient's family and patient were updated.
[2018-07-21 15:25] LABS: INR 1.1 (0.9-1.3); Prothrombin Time 12.4 SECONDS (10.1-12.7)
[2018-07-21 15:27] LABS: PTT Partial Thromboplastin Tim 32 SECONDS (26.4-36.2)
[2018-07-21] MEDS: miSOPROStol 200 MCG TABLET 800 MCG PR (16:05)
[2018-07-21] MEDS: CARBOPROST 250 MCG/ML AMPUL IM ×2 (16:06→17:27)
[2018-07-21 16:24] LABS: Fibrinogen 148 mg/dL (211-428)
[2018-07-21] MEDS: TRANEXAMIC ACID 1,000 MG VIAL 1000 MG IV (16:41)
--- NOTE | 2018-07-21 17:42 | PM.PN.1 ---
Subjective Date Patient Seen: 07/21/18 Time Patient Seen: 17:42 Interval history: Patient seen multiple times earlier this afternoon and evening. Discussed case with Dr. Fox as well as Dr. Sanchez who had been in an out of the room at discussing with the patient as well. Bleeding has slowed down this last couple of hours. Less output from the balloon was 60 cc over an hour and half. She received another dose of Cytotec. Two doses of Hemabate. She has also received her antibiotic. After discussion with the patient and care team. I elected to transfuse another 2 units of red blood cells. Her urine output has been low. She has received a lot of fluids. Will increase back up her fluids to 250 cc/hour. Her blood pressures improved. Although she still little bit tachycardic. Care update was discussed with patient and who is at her bedside. Clinically she looks like she has improved a little bit and her bleeding has slowed down. Exam Vital Signs (past 8 hours): - 07/21/18 09:47 07/21/18 09:51 07/21/18 09:53 Temperature Pulse Rate 70 79 65 Respiratory Rate 22 17 Blood Pressure 119/63 120/62 113/68 Pulse Oximetry 97 98 98 07/21/18 09:58 07/21/18 09:59 07/21/18 10:00 Temperature Pulse Rate 64 62 99 H Respiratory Rate 18 13 15 Blood Pressure 126/66 130/71 139/82 Pulse Oximetry 98 99 97 07/21/18 10:01 07/21/18 10:03 07/21/18 10:04 Temperature Pulse Rate 82 81 64 Respiratory Rate 16 15 14 Blood Pressure 136/74 140/77 127/66 Pulse Oximetry 99 98 99 07/21/18 10:05 07/21/18 10:07 07/21/18 10:08 Temperature Pulse Rate 72 65 65 Respiratory Rate 16 12 13 Blood Pressure 128/70 123/69 123/63 Pulse Oximetry 98 99 99 07/21/18 11:01 07/21/18 11:03 07/21/18 11:06 Temperature 97.1 F L Pulse Rate 64 69 72 Respiratory Rate 12 16 18 Blood Pressure 99/52 L 105/66 107/61 Pulse Oximetry 100 99 100 07/21/18 11:11 07/21/18 11:16 04/08/19 11:21 Temperature Pulse Rate 63 62 65 Respiratory Rate 13 14 Blood Pressure 99/61 96/50 L 88/51 L Pulse Oximetry 100 99 99 07/21/18 11:22 07/21/18 11:26 07/21/18 11:28 Temperature Pulse Rate 67 61 62 Respiratory Rate 20 Blood Pressure 88/56 L 85/45 L 87/47 L Pulse Oximetry 99 99 07/21/18 11:31 07/21/18 11:36 07/21/18 11:38 Temperature Pulse Rate 71 63 71 Respiratory Rate 20 16 18 Blood Pressure 103/56 L 92/56 L 90/49 L Pulse Oximetry 100 100 99 07/21/18 11:41 07/21/18 11:46 07/21/18 11:47 Temperature Pulse Rate 67 67 65 Respiratory Rate 17 15 17 Blood Pressure 73/46 L 102/52 L 102/52 L Pulse Oximetry 100 100 100 07/21/18 11:51 07/21/18 11:54 07/21/18 11:57 Temperature 97.0 F L Pulse Rate 71 65 67 Respiratory Rate 18 16 18 Blood Pressure 98/55 L 99/60 104/60 Pulse Oximetry 100 100 99 07/21/18 12:02 07/21/18 12:03 07/21/18 12:07 Temperature Pulse Rate 74 74 74 Respiratory Rate 17 16 15 Blood Pressure 106/53 L 92/41 L 93/52 L Pulse Oximetry 99 100 99 07/21/18 12:13 07/21/18 12:19 07/21/18 12:20 Temperature 96.8 F L Pulse Rate 103 H 85 79 Respiratory Rate 17 17 Blood Pressure 95/58 L 106/37 L 90/50 L Pulse Oximetry 100 100 07/21/18 12:25 07/21/18 12:31 07/21/18 12:34 Temperature Pulse Rate 82 83 86 Respiratory Rate 9 L 16 Blood Pressure 87/49 L 107/52 L 92/46 L Pulse Oximetry 100 100 07/21/18 12:37 07/21/18 12:38 07/21/18 12:46 Temperature 96.4 F L Pulse Rate 94 H 93 H Respiratory Rate 16 15 Blood Pressure 98/52 L 100/56 L Pulse Oximetry 100 100 07/21/18 12:56 07/21/18 13:03 07/21/18 13:05 Temperature 96.0 F L Pulse Rate 104 H 85 Respiratory Rate 12 10 L Blood Pressure 103/49 L 96/53 L Pulse Oximetry 100 100 Oxygen Delivery Method Room Air Narrative Exam Narrative: General: Alert no apparent distress. Cardio: S1-S2 tachycardic Respiratory: Normal respiratory effort Abdomen: Uterus is firm above umbilicus Objective Labs Result Diagrams: 07/21/18 15:04 Labs: Laboratory Results - last 24 hr 07/21/18 07/21/18 07/21/18 06:15 06:15 09:50 WBC 8.2 RBC 4.89 Hgb 12.6 11.1 L Hct 38.7 34.0 L MCV 79.2 L MCH 25.8 L MCHC 32.5 RDW 14.0 Plt Count 234 Neut % (Auto) 66.0 Lymph % (Auto) 22.4 L [place] % (Auto) 8.9 Eos % (Auto) 2.0 Baso % (Auto) 0.7 Neut # (Auto) 5400 Lymph # (Auto) 1800 [place] # (Auto) 700 Eos # (Auto) 200 Baso # (Auto) 100 PT INR APTT Fibrinogen Blood Type A Positive Antibody Screen Negative Crossmatch See Detail 07/21/18 07/21/18 07/21/18 11:45 14:05 15:04 WBC 17.3 H D RBC 3.52 L Hgb 7.9 L 10.6 L 9.4 L Hct 24.8 L 32.3 L 29.1 L MCV 82.7 D MCH 26.9 MCHC 32.5 RDW 14.7 Plt Count 146 L Neut % (Auto) 85.5 H Lymph % (Auto) 6.2 L [place] % (Auto) 7.8 Eos % (Auto) 0.0 L Baso % (Auto) 0.5 Neut # (Auto) 63748 H Lymph # (Auto) 1100 [place] # (Auto) 1400 H Eos # (Auto) 0 Baso # (Auto) 100 PT INR APTT Fibrinogen Blood Type Antibody Screen Crossmatch 07/21/18 15:04 WBC RBC Hgb Hct MCV MCH MCHC RDW Plt Count Neut % (Auto) Lymph % (Auto) [place] % (Auto) Eos % (Auto) Baso % (Auto) Neut # (Auto) Lymph # (Auto) [place] # (Auto) Eos # (Auto) Baso # (Auto) PT 12.4 INR 1.1 APTT 32 Fibrinogen 148 L Blood Type Antibody Screen Crossmatch Assessment & Plan Assessment & Plan narrative: Ongoing hemorrhage after . Balloon in place. Hemorrhage output is decreasing. Transfuse another 2 units of packed red blood cells another dose of IM pen. IV fluids at 250 cc/hour. Monitor closely urine output. Blood pressures improved. Patient is stable. If patient's condition does not improve or bleeding continues. It back to the OR. Discussed with Dr. Laura Fox.
[2018-07-21 18:22] LABS: Hematocrit 29.7 % (36-46); Hemoglobin 9.7 g/dL (12.0-16.0)
[2018-07-21 19:10] LABS: Hematocrit 30.4 % (36-46)
[2018-07-21 19:20] LABS: Fibrinogen 187 mg/dL (211-428)
[2018-07-21 19:26] LABS: PTT Partial Thromboplastin Tim 30 SECONDS (26.4-36.2)
[2018-07-21 19:27] LABS: Prothrombin Time 11.6 SECONDS (10.1-12.7)
[2018-07-21] MEDS: LACTATED RINGERS 1,000 ML 200 ML IV (20:56)
[2018-07-21] MEDS: OXYCODONE/ACETAMINOPHEN 5/325 TABLET 2 TAB PO (21:45)
--- NOTE | 2018-07-21 22:30 | PM.GYNOP.1 ---
Operative Date/Time/Diagnoses Date of procedure: 07/21/18 Time of procedure: 11:30 Pre-op diagnosis: Postoperative hemorrhage Uterus full of clots Post-op diagnosis: same Procedure: Procedures Operation Date: 07/21/18 07:45 Actual Procedures Side Surgeon p Section with Bilateral Tubal Ligation Juan Antonio Mack MD Operation Date: 07/21/18 10:15 Actual Procedures Side Surgeon p Evacuation of clots, placement Bakry ballon Juan Antonio Mack MD Indications: Postoperative hemorrhage Uterus full of clots A tonic uterus Surgeon: Winnie Fox Anesthesia Type: Spinal Operative Notes Findings: 22 week size uterus 800 cc of clot in the uterus Closure Type: not applicable Specimen(s): none Estimated blood loss (mL): 800 Blood products transfused: packed red blood cells (2 units) Procedure in detail: After informed consent was obtained, the patient was taken to the operating room where she was placed in the dorsal supine position. She was then placed in the dorsal lithotomy position, and prepped and draped in the usual sterile fashion. a bivalve speculum was placed into the vagina and the anterior lip of the cervix was grasped with a single-tooth tenaculum. The # 12 curved plastic curette passed easily into the endometrial cavity. Several passes revealed a large amount of blood and clot. Plastic curette was removed. bimanual massage was performed and there was a large amount of clot at the fundus of the uterus. This was evacuated manually. The Bakri balloon was placed into the fundus of the uterus and filled with 300 cc of sterile saline. The bleeding slowed to minimal to moderate. The single-tooth tenaculum was removed from the anterior lip of the cervix. The bivalve speculum was removed from the vagina. The Bakri balloon was connected to a grenade for suction. Sponge, lap, and instrument counts were correct x2. The patient tolerated the procedure well, and was taken to PACU in stable condition. Complications: none Post-operative Condition: stable Disposition: PACU Plan for aftercare: To Center after recovery
[2018-07-22 01:00] VITALS: BP 115/54; PULSE 78; RESP 18; TEMP 36.9
[2018-07-22] MEDS: LACTATED RINGERS 1,000 ML 200 ML IV ×4 (01:28→15:41)
[2018-07-22 02:26] VITALS: TEMP 37.6
[2018-07-22] MEDS: OXYCODONE/ACETAMINOPHEN 5/325 TABLET 2 TAB PO ×5 (02:26→19:51)
[2018-07-22] MEDS: CEFAZOLIN 2 GM/100 ML FROZ.PIGGY IV ×3 (02:30→18:24)
[2018-07-22 06:44] LABS: Add Manual Diff / Slide Review NO; Basophils Absolute Auto 100 /uL (0-100); Basophils Percent Auto 0.5 % (0-2); Eosinophils Absolute Auto 100 /uL (0-450); Eosinophils Percent Auto 0.4 % (2-4); Hematocrit 26.6 % (36-46); Hemoglobin 9.1 g/dL (12.0-16.0); Lymphocytes Absolute Auto 2000 /uL (1100-4500); Mean Corpuscular HGB Conc 34.3 % (30-36); Mean Corpuscular Hemoglobin 27.6 PG (26-34); Mean Corpuscular Volume 80.7 fL (80-100); Monocytes Absolute Auto 1300 /uL (0-900); Monocytes Percent Auto 9.2 % (3-14); Neutrophils Absolute Auto 10100 /uL (1500-7000); Neutrophils Percent Auto 74.9 % (50-75); Platelet Count 109 X10^3/uL (150-400); Red Blood Cell Count 3.29 X10^6/uL (4.0-5.2); Red Cell Distribution Width 15.4 % (11.6-14.8); White Blood Cell Count 13.6 X10^3/uL (4.5-11.0)
[2018-07-22 07:15] LABS: PTT Partial Thromboplastin Tim 33 SECONDS (26.4-36.2); Prothrombin Time 11.5 SECONDS (10.1-12.7)
[2018-07-22 07:44] LABS: Fibrinogen 275 mg/dL (211-428)
--- NOTE | 2018-07-22 08:49 | PM.PN.1 ---
Subjective Date Patient Seen: 07/22/18 Time Patient Seen: 06:50 Interval history: Patient seen examined had a good night last night. Received 2 more units of packed red blood cells. Vital signs improved. Blood pressure is also improved she is no longer quite as tachycardic. Still getting 250 cc of IV fluid. She says she has a little bit hungry this morning. Output from the balloon has been 30 mL or less over the evening and telemetry rn shift. Urine output has been adequate. Patient has a little bit of pain. She is getting oral Percocet. Exam Vital Signs (past 8 hours): - 07/22/18 01:00 07/22/18 02:26 Temperature 98.4 F 99.6 F Pulse Rate 78 Respiratory Rate 18 Blood Pressure 115/54 L Oxygen Delivery Method Room Air Narrative Exam Narrative: General: Alert no apparent distress. Affect is appropriate. Mild abdominal discomfort HEENT: PERRLA oral mucosa is moist Cardio: S1-S2 regular rate and rhythm. Respiratory: Lungs clear to auscultation. Abdomen: Uterus firm 2 cm above umbilicus. Incision clean dry and intact. Extremities: Normal deep tendon reflexes trace edema. Objective Labs Result Diagrams: 07/22/18 06:22 Labs: Laboratory Results - last 24 hr 07/21/18 07/21/18 07/21/18 06:15 09:50 11:45 WBC RBC Hgb 11.1 L 7.9 L Hct 34.0 L 24.8 L MCV MCH MCHC RDW Plt Count Neut % (Auto) Lymph % (Auto) [place] % (Auto) Eos % (Auto) Baso % (Auto) Neut # (Auto) Lymph # (Auto) [place] # (Auto) Eos # (Auto) Baso # (Auto) PT INR APTT Fibrinogen Blood Type A Positive Antibody Screen Negative Crossmatch See Detail 07/21/18 07/21/18 07/21/18 14:05 15:04 15:04 WBC 17.3 H D RBC 3.52 L Hgb 10.6 L 9.4 L Hct 32.3 L 29.1 L MCV 82.7 D MCH 26.9 MCHC 32.5 RDW 14.7 Plt Count 146 L Neut % (Auto) 85.5 H Lymph % (Auto) 6.2 L [place] % (Auto) 7.8 Eos % (Auto) 0.0 L Baso % (Auto) 0.5 Neut # (Auto) 46173 H Lymph # (Auto) 1100 [place] # (Auto) 1400 H Eos # (Auto) 0 Baso # (Auto) 100 PT 12.4 INR 1.1 APTT 32 Fibrinogen 148 L Blood Type Antibody Screen Crossmatch 07/21/18 07/21/18 07/21/18 18:03 19:03 19:03 WBC RBC Hgb 9.7 L Hct 29.7 L MCV MCH MCHC RDW Plt Count Neut % (Auto) Lymph % (Auto) [place] % (Auto) Eos % (Auto) Baso % (Auto) Neut # (Auto) Lymph # (Auto) [place] # (Auto) Eos # (Auto) Baso # (Auto) PT 11.6 INR 1.0 APTT 30 D Fibrinogen Blood Type Antibody Screen Crossmatch 07/21/18 07/21/18 07/22/18 19:03 19:03 06:22 WBC RBC Hgb 10.0 L Hct 30.4 L MCV MCH MCHC RDW Plt Count Neut % (Auto) Lymph % (Auto) [place] % (Auto) Eos % (Auto) Baso % (Auto) Neut # (Auto) Lymph # (Auto) [place] # (Auto) Eos # (Auto) Baso # (Auto) PT 11.5 INR 1.0 APTT 33 D Fibrinogen 187 L 275 Blood Type Antibody Screen Crossmatch 07/22/18 06:22 WBC 13.6 H RBC 3.29 L Hgb 9.1 L Hct 26.6 L MCV 80.7 MCH 27.6 MCHC 34.3 RDW 15.4 H Plt Count 109 L Neut % (Auto) 74.9 Lymph % (Auto) 15.0 L [place] % (Auto) 9.2 Eos % (Auto) 0.4 L Baso % (Auto) 0.5 Neut # (Auto) 67606 H Lymph # (Auto) 2000 [place] # (Auto) 1300 H Eos # (Auto) 100 Baso # (Auto) 100 PT INR APTT Fibrinogen Blood Type Antibody Screen Crossmatch Assessment & Plan Assessment & Plan narrative: Status post repeat with bilateral tubal ligation hemorrhage significant status post placement of Bockery Balloon With Cytotec x2 Hemabate X2 Methergine x4 Acute blood loss anemia due to hemorrhage Status post 4 units packed red blood cells Plan today. Patient is stabilized as far as blood pressure pulse and hemoglobin hematocrit PT INR thrombin time were normal urine output is adequate. Check chemistry. Recheck hemoglobin and hematocrit later this afternoon. Gradually deflate the balloon. By 30 cc/hour. Watching for increased output. Advance diet to clear liquids. Then gradually advance tolerated. Allow patient to sit a bedside table. Care plan was discussed with patient and nurse.
--- NOTE | 2018-07-22 08:54 | P.PN_ITS ---
Subjective Date Patient Seen: 07/22/18 Time Patient Seen: 06:50 Interval history: Patient seen examined had a good night last night. Received 2 more units of packed red blood cells. Vital signs improved. Blood pressure is also improved she is no longer quite as tachycardic. Still getting 250 cc of IV fluid. She says she has a little bit hungry this morning. Output from the balloon has been 30 mL or less over the evening and middleware administrator shift. Urine output has been adequate. Patient has a little bit of pain. She is getting oral Percocet. Exam Vital Signs (past 8 hours): - 07/22/18 01:00 07/22/18 02:26 Temperature 98.4 F 99.6 F Pulse Rate 78 Respiratory Rate 18 Blood Pressure 115/54 L Oxygen Delivery Method Room Air Narrative Exam Narrative: General: Alert no apparent distress. Affect is appropriate. Mild abdominal discomfort HEENT: PERRLA oral mucosa is moist Cardio: S1-S2 regular rate and rhythm. Respiratory: Lungs clear to auscultation. Abdomen: Uterus firm 2 cm above umbilicus. Incision clean dry and intact. Extremities: Normal deep tendon reflexes trace edema. Objective Labs Result Diagrams: 07/22/18 06:22 Labs: Laboratory Results - last 24 hr 07/21/18 07/21/18 07/21/18 06:15 09:50 11:45 WBC RBC Hgb 11.1 L 7.9 L Hct 34.0 L 24.8 L MCV MCH MCHC RDW Plt Count Neut % (Auto) Lymph % (Auto) [place] % (Auto) Eos % (Auto) Baso % (Auto) Neut # (Auto) Lymph # (Auto) [place] # (Auto) Eos # (Auto) Baso # (Auto) PT INR APTT Fibrinogen Blood Type A Positive Antibody Screen Negative Crossmatch See Detail 07/21/18 07/21/18 07/21/18 14:05 15:04 15:04 WBC 17.3 H D RBC 3.52 L Hgb 10.6 L 9.4 L Hct 32.3 L 29.1 L MCV 82.7 D MCH 26.9 MCHC 32.5 RDW 14.7 Plt Count 146 L Neut % (Auto) 85.5 H Lymph % (Auto) 6.2 L [place] % (Auto) 7.8 Eos % (Auto) 0.0 L Baso % (Auto) 0.5 Neut # (Auto) 24983 H Lymph # (Auto) 1100 [place] # (Auto) 1400 H Eos # (Auto) 0 Baso # (Auto) 100 PT 12.4 INR 1.1 APTT 32 Fibrinogen 148 L Blood Type Antibody Screen Crossmatch 07/21/18 07/21/18 07/21/18 18:03 19:03 19:03 WBC RBC Hgb 9.7 L Hct 29.7 L MCV MCH MCHC RDW Plt Count Neut % (Auto) Lymph % (Auto) [place] % (Auto) Eos % (Auto) Baso % (Auto) Neut # (Auto) Lymph # (Auto) [place] # (Auto) Eos # (Auto) Baso # (Auto) PT 11.6 INR 1.0 APTT 30 D Fibrinogen Blood Type Antibody Screen Crossmatch 07/21/18 07/21/18 07/22/18 19:03 19:03 06:22 WBC RBC Hgb 10.0 L Hct 30.4 L MCV MCH MCHC RDW Plt Count Neut % (Auto) Lymph % (Auto) [place] % (Auto) Eos % (Auto) Baso % (Auto) Neut # (Auto) Lymph # (Auto) [place] # (Auto) Eos # (Auto) Baso # (Auto) PT 11.5 INR 1.0 APTT 33 D Fibrinogen 187 L 275 Blood Type Antibody Screen Crossmatch 07/22/18 06:22 WBC 13.6 H RBC 3.29 L Hgb 9.1 L Hct 26.6 L MCV 80.7 MCH 27.6 MCHC 34.3 RDW 15.4 H Plt Count 109 L Neut % (Auto) 74.9 Lymph % (Auto) 15.0 L [place] % (Auto) 9.2 Eos % (Auto) 0.4 L Baso % (Auto) 0.5 Neut # (Auto) 33997 H Lymph # (Auto) 2000 [place] # (Auto) 1300 H Eos # (Auto) 100 Baso # (Auto) 100 PT INR APTT Fibrinogen Blood Type Antibody Screen Crossmatch Assessment & Plan Assessment & Plan narrative: Status post repeat with bilateral tubal ligation hemorrhage significant status post placement of Bockery Balloon With Cytotec x2 Hemabate X2 Methergine x4 Acute blood loss anemia due to hemorrhage Status post 4 units packed red blood cells Plan today. Patient is stabilized as far as blood pressure pulse and hemoglobin hematocrit PT INR thrombin time were normal urine output is adequate. Check chemistry. Recheck hemoglobin and hematocrit later this afternoon. Gradually deflate the balloon. By 30 cc/hour. Watching for increased output. Advance diet to clear liquids. Then gradually advance tolerated. Allow patient to sit a bedside table. Care plan was discussed with patient and nurse.
[2018-07-22] MEDS: PRENATAL VIT,CALC/IRON/FOLIC 1 TABLET 1 TAB PO (08:57)
[2018-07-22] MEDS: IBUPROFEN 600 MG TABLET PO ×2 (08:57→14:58)
[2018-07-22 09:27] LABS: Alanine Aminotransferase 19 IU/L (9-52); Alkaline Phosphatase 80 U/L (38-126); Aspartate Aminotransferase 20 IU/L (14-36); BUN Creatinine Ratio 16.3 (6-22); Bilirubin Total 0.2 mg/dL (0.2-1.3); Blood Urea Nitrogen 13 mg/dL (7-17); Calcium 7.4 mg/dL (8.4-10.2); Carbon Dioxide 26 mmol/L (22-32); Chloride 104 mmol/L (98-107); Estimated Glomerular Filt Rate > 60.0 mL/min (>60); Glucose 80 mg/dL (70-100); HEMOLYSIS < 15 (0-50); Potassium 4.4 mmol/L (3.4-5.1); Sodium 134 mmol/L (137-145)
[2018-07-22 11:05] LABS: Add Manual Diff / Slide Review NO; Basophils Absolute Auto 100 /uL (0-100); Basophils Percent Auto 0.5 % (0-2); Eosinophils Absolute Auto 100 /uL (0-450); Eosinophils Percent Auto 0.4 % (2-4); Hemoglobin 8.9 g/dL (12.0-16.0); Lymphocytes Absolute Auto 1700 /uL (1100-4500); Lymphocytes Percent Auto 13.8 % (25-40); Mean Corpuscular HGB Conc 34.2 % (30-36); Mean Corpuscular Hemoglobin 27.8 PG (26-34); Mean Corpuscular Volume 81.5 fL (80-100); Monocytes Absolute Auto 1100 /uL (0-900); Monocytes Percent Auto 8.8 % (3-14); Neutrophils Absolute Auto 9700 /uL (1500-7000); Neutrophils Percent Auto 76.5 % (50-75); Platelet Count 105 X10^3/uL (150-400); Red Blood Cell Count 3.19 X10^6/uL (4.0-5.2); Red Cell Distribution Width 15.3 % (11.6-14.8); White Blood Cell Count 12.6 X10^3/uL (4.5-11.0)
--- NOTE | 2018-07-22 11:40 | PC.NURSE ---
Blood product was scanned but not saved I went in after blood infused and completed documentation as directed by Jared Kaplan in [place].
[2018-07-22] MEDS: SIMETHICONE 80 MG TABLET PO (14:58)
[2018-07-23] MEDS: OXYCODONE/ACETAMINOPHEN 5/325 TABLET 2 TAB PO ×2 (01:54→07:52)
[2018-07-23] MEDS: IBUPROFEN 600 MG TABLET PO ×4 (01:54→20:14)
[2018-07-23] MEDS: CEFAZOLIN 2 GM/100 ML FROZ.PIGGY IV (05:40)
--- NOTE | 2018-07-23 07:43 | PM.PN.1 ---
Subjective Date Patient Seen: 07/23/18 Time Patient Seen: 07:44 Interval history: Patient seen and evaluated this morning. He did well last night. The balloon has been deflated. Came out on its own this morning. Patient has been sitting up tingling feet at bedside standing. IV fluids been stopped. Received antibiotics this morning blood testing pending for CBC and basic metabolic profile. She is tolerating her diet. She is passing gas but no bowel movement yet. Pain is well controlled. No fevers. She is working on breast-feeding. Has some colostrum. Started supplementing the baby a little bit. She has had difficulty with breast-feeding with her other children. Exam Vital Signs (past 8 hours): Oxygen Delivery Method Room Air Narrative Exam Narrative: Gen.: Alert good historian HEENT: Pupils equal round and reactive or mucosa is moist neck is supple Cardio: S1-S2 regular rate and rhythm no murmurs appreciated. Respiratory: Lungs are clear to auscultation no wheezes or crackles normal respiratory effort. Abdomen: Uterus as 2 cm below umbilicus. Incisions clean dry and intact : Lochia scant. Ballon has been removed. Douglas catheter will be removed Extremities: Mild edema Objective Labs Result Diagrams: 07/22/18 08:07 07/22/18 08:02 Labs: Laboratory Results - last 24 hr 07/21/18 07/22/18 07/22/18 06:15 06:22 08:02 WBC RBC Hgb Hct MCV MCH MCHC RDW Plt Count Neut % (Auto) Lymph % (Auto) [place] % (Auto) Eos % (Auto) Baso % (Auto) Neut # (Auto) Lymph # (Auto) [place] # (Auto) Eos # (Auto) Baso # (Auto) Fibrinogen 275 Sodium 134 L Potassium 4.4 Chloride 104 Carbon Dioxide 26 BUN 13 Creatinine 0.80 Estimated GFR > 60.0 BUN/Creatinine Ratio 16.3 Glucose 80 Calcium 7.4 L Total Bilirubin 0.2 AST 20 ALT 19 Alkaline Phosphatase 80 Total Protein 4.0 L Albumin 2.0 L Globulin 2.0 Albumin/Globulin Ratio 1.0 Blood Type A Positive Antibody Screen Negative Crossmatch See Detail 07/22/18 08:07 WBC 12.6 H RBC 3.19 L Hgb 8.9 L Hct 26.0 L MCV 81.5 MCH 27.8 MCHC 34.2 RDW 15.3 H Plt Count 105 L Neut % (Auto) 76.5 H Lymph % (Auto) 13.8 L [place] % (Auto) 8.8 Eos % (Auto) 0.4 L Baso % (Auto) 0.5 Neut # (Auto) 9700 H Lymph # (Auto) 1700 [place] # (Auto) 1100 H Eos # (Auto) 100 Baso # (Auto) 100 Fibrinogen Sodium Potassium Chloride Carbon Dioxide BUN Creatinine Estimated GFR BUN/Creatinine Ratio Glucose Calcium Total Bilirubin AST ALT Alkaline Phosphatase Total Protein Albumin Globulin Albumin/Globulin Ratio Blood Type Antibody Screen Crossmatch Assessment & Plan Assessment & Plan narrative: Status post repeat with bilateral tubal ligation hemorrhage significant status post placement of Bockery Balloon With Cytotec x2 Hemabate X2 Methergine x4 Acute blood loss anemia due to hemorrhage Status post 4 units packed red blood cells Plan today. Balloon has been removed. Bleeding is scant. Douglas catheter will be removed SCDs will be removed IV fluids will be stopped antibiotics will be stopped. Recheck blood counts. Monitor for bleeding throughout the day continue with breast-feeding. Pain is well controlled. Improve diet ambulation activity. Potential discharge tomorrow.
[2018-07-23] MEDS: PRENATAL VIT,CALC/IRON/FOLIC 1 TABLET 1 TAB PO (07:53)
[2018-07-23] MEDS: DOCUSATE 250 MG CAPSULE PO (07:53)
[2018-07-23 11:26] LABS: Add Manual Diff / Slide Review NO; Basophils Absolute Auto 0 /uL (0-100); Basophils Percent Auto 0.4 % (0-2); Eosinophils Absolute Auto 200 /uL (0-450); Eosinophils Percent Auto 1.5 % (2-4); Hematocrit 24.2 % (36-46); Hemoglobin 8.3 g/dL (12.0-16.0); Lymphocytes Absolute Auto 1700 /uL (1100-4500); Lymphocytes Percent Auto 14.6 % (25-40); Mean Corpuscular HGB Conc 34.5 % (30-36); Mean Corpuscular Hemoglobin 28.1 PG (26-34); Mean Corpuscular Volume 81.5 fL (80-100); Monocytes Absolute Auto 700 /uL (0-900); Monocytes Percent Auto 6.3 % (3-14); Neutrophils Absolute Auto 8800 /uL (1500-7000); Neutrophils Percent Auto 77.2 % (50-75); Platelet Count 121 X10^3/uL (150-400); Red Blood Cell Count 2.96 X10^6/uL (4.0-5.2); Red Cell Distribution Width 15.5 % (11.6-14.8); White Blood Cell Count 11.4 X10^3/uL (4.5-11.0)
--- NOTE | 2018-07-23 11:30 | PM.PN.1 ---
Exam Vital Signs (past 8 hours): Oxygen Delivery Method Room Air Objective Labs Result Diagrams: 07/22/18 08:07 07/22/18 08:02 Labs: Laboratory Results - last 24 hr 07/21/18 06:15 Blood Type A Positive Antibody Screen Negative Crossmatch See Detail
[2018-07-23] MEDS: BUTALB/APAP/CAFFEINE 50/325/40 TABLET 2 EACH PO ×3 (11:35→16:40)
[2018-07-23 11:37] LABS: BUN Creatinine Ratio 14.3 (6-22); Blood Urea Nitrogen 10 mg/dL (7-17); Calcium 7.9 mg/dL (8.4-10.2); Carbon Dioxide 28 mmol/L (22-32); Chloride 103 mmol/L (98-107); Estimated Glomerular Filt Rate > 60.0 mL/min (>60); Glucose 76 mg/dL (70-100); HEMOLYSIS < 15 (0-50); Sodium 136 mmol/L (137-145)
--- NOTE | 2018-07-23 11:42 | P.PN_ITS ---
Subjective Date Patient Seen: 07/23/18 Time Patient Seen: 11:33 Interval history: Patient is 2 days post op C/section with BTL with complications of postop hemorrhage. Patient had a total of 4 units PRBC and has remained stable and without active bleeding for >24 hr. CBC results are pending for today. This morning she went to the bathroom and noted a headache. She then described an intense worsening of her headache and the sensation that she was going to pass out. The nurse was in attendance and got her back to bed. Her headache improved with supine position. She has been on 10mg percocet q 4 hr for her postop pain management. I discussed the possibility of a post dural headache. I will change her medication to Fioricet 5-10mg q 4hr. I will change her Percocet to Percolone 5- 10 mg q 4 hr. I will followup later today with the consideration of performing an epidural blood patch should her symptoms persist. Dr. Mack was notified. Exam Vital Signs (past 8 hours): Oxygen Delivery Method Room Air Objective Labs Result Diagrams: 07/22/18 08:07 07/22/18 08:02 Labs: Laboratory Results - last 24 hr 07/21/18 06:15 Blood Type A Positive Antibody Screen Negative Crossmatch See Detail Assessment & Plan Post-op Postoperative Procedures Operation Date: 07/21/18 07:45 Actual Procedures Side Surgeon p Section with Bilateral Tubal Ligation Juan Antonio Mack MD Operation Date: 07/21/18 10:15 Actual Procedures Side Surgeon p Evacuation of clots, placement Bakari Mack MD
[2018-07-23] MEDS: OXYCODONE IR 5 MG TABLET 10 MG PO ×3 (12:19→20:43)
--- NOTE | 2018-07-23 18:14 | PM.PN.1 ---
Exam Vital Signs (past 8 hours): Oxygen Delivery Method Room Air Objective Labs Result Diagrams: 07/23/18 08:26 07/23/18 08:26 Labs: Laboratory Results - last 24 hr 07/23/18 07/23/18 08:26 08:26 WBC 11.4 H RBC 2.96 L Hgb 8.3 L Hct 24.2 L MCV 81.5 MCH 28.1 MCHC 34.5 RDW 15.5 H Plt Count 121 L Neut % (Auto) 77.2 H Lymph % (Auto) 14.6 L [place] % (Auto) 6.3 Eos % (Auto) 1.5 L Baso % (Auto) 0.4 Neut # (Auto) 8800 H Lymph # (Auto) 1700 [place] # (Auto) 700 Eos # (Auto) 200 Baso # (Auto) 0 Sodium 136 L Potassium 4.0 Chloride 103 Carbon Dioxide 28 BUN 10 Creatinine 0.70 Estimated GFR > 60.0 BUN/Creatinine Ratio 14.3 Glucose 76 Calcium 7.9 L Assessment & Plan Assessment & Plan narrative: Patient doing better on po Fioricet. Headache has resolved and patient has been able to ambulate without symptoms. Will continue with present plan. Time Spent With Patient Time with patient: less than 15 minutes
[2018-07-24] MEDS: IBUPROFEN 600 MG TABLET PO ×2 (04:01→10:29)
[2018-07-24] MEDS: OXYCODONE IR 5 MG TABLET 10 MG PO ×2 (04:01→10:30)
[2018-07-24 09:35] VITALS: BP 115/54; PULSE 78; RESP 18; TEMP 37
[2018-07-24] MEDS: DOCUSATE 250 MG CAPSULE PO (10:27)
[2018-07-24] MEDS: PRENATAL VIT,CALC/IRON/FOLIC 1 TABLET 1 TAB PO (10:28)
[2018-07-24 10:29] VITALS: TEMP 37
--- NOTE | 2018-07-24 11:37 | PM.DS.1 ---
History of Present Illness Chief complaint: [id number] REPEAT W/BTL Narrative: Patient is a 27-year-old female 9 para 3 estimated due date of 07/25/2018 consistent with LMP early ultrasound. care was complicated by labor this is her 4th and here in the last week has had some hypertension. Patient has been excited to have her baby since 20/6 weeks. And has been regularly in the Center for frequent evaluations because of labor. She was initially on nifedipine and this was stopped at 36 weeks. She has continued to contract. Recent blood pressure evaluation showed elevated blood pressure. But normal AST ALT mildly elevated alkaline phosphatase and mildly elevated urine protein patient has no swelling. Blood pressure is elevated this morning. No headaches blurry vision right upper quadrant pain or swelling and edema. She began care at 11 weeks and had a number of visits throughout . Total weight gains approximately 20 lb. care as previously mentioned was complicated by labor. 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 Family history of high blood pressure history of anemia history of MRSA. Previous and D& C. Family history of depression as well as mom had mild depression. Medications during included vitamins and nifedipine. labs show blood type A positive antibody screen negative hematocrit 43 and hemoglobin 14.6 platelet 297 VDRL negative HIV negative chlamydia and GC negative rubella immune. Hepatitis-C negative 2nd trimester integrated screening negative diabetes screen 140 patient diet changes were recommended. GBS testing was negative ultrasound at 20 weeks was normal. Reviewed with patient and who was at her bedside this morning the procedure including risks benefits and common complications of repeat section X specially since this is her 4th. Patient is anticipated tubal ligation we discussed that with her and her . Written verbal and informed consent was obtained. Her consent was updated. Discharge Providers Date of admission: 07/21/18 05:41 Discharge Date: 07/25/18 Primary care physician: Winnie Fox MD Consults: 07/21/18 13:35 Consult to Mix Technician Routine Comment: Discharge provider: Juan Antonio Mack MD Summary Discharge Diagnosis: 27-year-old status post repeat section for term intrauterine hemorrhage with uterine Jose. Acute blood loss anemia Spinal headache Hospital Course: Patient was admitted the hospital for repeat section it was her 4th. Patient had a bilateral tubal ligation as well. Patient had an uneventful section. In the recovery room. Patient had a hemorrhage. She was given Cytotec Methergine Pitocin and continued to bleed. At that point patient was taken back to the operating room and a D&C removal of clots and placement of teodoro a balloon was done. Throughout the afternoon patient after the procedure continued to have bleeding. Received another dice of Cytotec. Four doses of Methergine as well as Hemabate. Throughout the evening hours her blood counts stabilized. Patient's blood pressure stabilized. After the 1st 24 hours. Patient's bleeding with stable vital signs were stable. Patient was started on clear liquid diet. Patient had decrease her IV fluids. Over 24 hours the balloon was deflated. Was gradually deflated without significant vaginal bleeding her lochia. Balloon was then easily removed. After removal of the balloon for the next 24 hours patient's vital signs hemoglobin hematocrit were stable mom was breast-feeding. Douglas catheter was removed IVs removed SCDs removed she was ambulating tolerating diet. Although with ambulation she had a headache. Consistent with probable spinal headache. She was evaluated by Anesthesia. Given Fioricet. Patient did well. At the time of discharge. She is eating ambulating tolerating her diet had a mild headache. Breast-feeding was going well. Vaginal bleeding was as anticipated uterus was firm. She was afebrile. Exam Vital Signs (past 8 hours): - 07/24/18 10:29 Temperature 98.6 F Oxygen Delivery Method Room Air Objective Labs Result Diagrams: 07/23/18 08:26 07/23/18 08:26 Labs: Laboratory Results - last 24 hr 07/23/18 08:26 Sodium 136 L Potassium 4.0 Chloride 103 Carbon Dioxide 28 BUN 10 Creatinine 0.70 Estimated GFR > 60.0 BUN/Creatinine Ratio 14.3 Glucose 76 Calcium 7.9 L Discharge Plan Discharge Plan Patient Disposition: Home Discharge comment: Follow-up with Dr. Mack in 7 days Discharge Med Rec/Prescriptions Prescriptions: New ypzjdkzyhy-xoxyheujozvph-hyfj 50-325-40 mg Tablet 2 ea PO Q4HR PRN (Reason: Headache) Qty: 0 RF: 0 oxycodone 5 mg Tablet 10 mg PO Q4HR PRN (Reason: Pain, Severe (7-10)) Qty: 20 RF: 0 Continued Vitamins (PRENAVITE) 1 tab PO QDAY Qty: 30 RF: 11 No Action docusate sodium 250 mg capsule 250 mg PO DAILY Qty: 30 RF: 1 ibuprofen 600 mg tablet 600 mg PO Q6HR PRN (Reason: As Needed For Fever/Mild Pain) Qty: 20 RF: 0 Follow up/Referrals: Winnie Fox MD [Primary Care Provider] - Visit Report/Discharge Packet Stand Alone Forms: Discharge: Care Visit Report Forms: Stroke Signs & Symptoms Discharge Data Primary Care Provider: Winnie Fox Attending Provider: Juan Antonio Mack Admit Date/Time: 07/21/18 05:41 Discharges patient from system. Discharge Date/Time: 07/24/18 12:45
--- NOTE | 2018-07-24 11:41 | P.DS_ITS ---
History of Present Illness Chief complaint: [id number] REPEAT W/BTL Narrative: Patient is a 27-year-old female 9 para 3 estimated due date of 07/25/2018 consistent with LMP early ultrasound. care was complicated by labor this is her 4th and here in the last week has had some hypertension. Patient has been excited to have her baby since 20/6 weeks. And has been regularly in the Center for frequent evaluations because of labor. She was initially on nifedipine and this was stopped at 36 weeks. She has continued to contract. Recent blood pressure evaluation showed elevated blood pressure. But normal AST ALT mildly elevated alkaline phosphatase and mildly elevated urine protein patient has no swelling. Blood pressure is elevated this morning. No headaches blurry vision right upper quadrant pain or swelling and edema. She began care at 11 weeks and had a number of visits throughout . Total weight gains approximately 20 lb. care as previously mentioned was complicated by labor. 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 Family history of high blood pressure history of anemia history of MRSA. Previous and D& C. Family history of depression as well as mom had mild depression. Medications during included vitamins and nifedipine. labs show blood type A positive antibody screen negative hematocrit 43 and hemoglobin 14.6 platelet 297 VDRL negative HIV negative chlamydia and GC negative rubella immune. Hepatitis-C negative 2nd trimester integrated screening negative diabetes screen 140 patient diet changes were recommended. GBS testing was negative ultrasound at 20 weeks was normal. Reviewed with patient and who was at her bedside this morning the procedure including risks benefits and common complications of repeat section X specially since this is her 4th. Patient is anticipated tubal ligatio n we discussed that with her and her . Written verbal and informed consent was obtained. Her consent was updated. Discharge Providers Date of admission: 07/21/18 05:41 Discharge Date: 07/25/18 Primary care physician: Winnie Fox MD Consults: 07/21/18 13:35 Consult to Gis Analyst Routine Comment: Discharge provider: Juan Antonio Mack MD Summary Discharge Diagnosis: 27-year-old status post repeat section for term intrauterine hemorrhage with uterine Jose. Acute blood loss anemia Spinal headache Hospital Course: Patient was admitted the hospital for repeat section it was her 4th. Patient had a bilateral tubal ligation as well. Patient had an uneventful section. In the recovery room. Patient had a hemorrhage. She was given Cytotec Methergine Pitocin and continued to bleed. At that point patient was taken back to the operating room and a D&C removal of clots and placement of teodoro a balloon was done. Throughout the afternoon patient after the procedure continued to have bleeding. Received another dice of Cytotec. Four doses of Methergine as well as Hemabate. Throughout the evening hours her blood counts stabilized. Patient's blood pressure stabilized. After the 1st 24 hours. Patient's bleeding with stable vital signs were stable. Patient was started on clear liquid diet. Patient had decrease her IV fluids. Over 24 hours the balloon was deflated. Was gradually deflated without significant vaginal bleeding her lochia. Balloon was then easily removed. After removal of the balloon for the next 24 hours patient's vital signs hemoglobin hematocrit were stable mom was breast-feeding. Douglas catheter was removed IVs removed SCDs removed she was ambulating tolerating diet. Although with ambulation she had a headache. Consistent with probable spinal headache. She was evaluated by Anesthesia. Given Fioricet. Patient did well. At the time of discharge. She is eating ambulating tolerating her diet had a mild headache. Breast-feeding was going well. Vaginal bleeding was as antici pated uterus was firm. She was afebrile. Exam Vital Signs (past 8 hours): - 07/24/18 10:29 Temperature 98.6 F Oxygen Delivery Method Room Air Objective Labs Result Diagrams: 07/23/18 08:26 07/23/18 08:26 Labs: Laboratory Results - last 24 hr 07/23/18 08:26 Sodium 136 L Potassium 4.0 Chloride 103 Carbon Dioxide 28 BUN 10 Creatinine 0.70 Estimated GFR > 60.0 BUN/Creatinine Ratio 14.3 Glucose 76 Calcium 7.9 L Discharge Plan Discharge Plan Patient Disposition: Home Discharge comment: Follow-up with Dr. Mack in 7 days Discharge Med Rec/Prescriptions Prescriptions: New mlswxkpnev-molkmhzbznkxe-hvbl 50-325-40 mg Tablet 2 ea PO Q4HR PRN (Reason: Headache) Qty: 0 RF: 0 oxycodone 5 mg Tablet 10 mg PO Q4HR PRN (Reason: Pain, Severe (7-10)) Qty: 20 RF: 0 Continued Vitamins (PRENAVITE) 1 tab PO QDAY Qty: 30 RF: 11 No Action docusate sodium 250 mg capsule 250 mg PO DAILY Qty: 30 RF: 1 ibuprofen 600 mg tablet 600 mg PO Q6HR PRN (Reason: As Needed For Fever/Mild Pain) Qty: 20 RF: 0 Follow up/Referrals: Winnie Fox MD [Primary Care Provider] - Visit Report/Discharge Packet Stand Alone Forms: Discharge: Care Visit Report Forms: Stroke Signs & Symptoms Discharge Data Primary Care Provider: Winnie Fox Attending Provider: Juan Antonio Mack Admit Date/Time: 07/21/18 05:41 Discharges patient from system. Discharge Date/Time: 07/24/18 12:45
== END 2018-07-24 12:45 | disposition home or self-care (01) | DRG 784 ==
PROVIDERS: Anesthesiology; Admitting Provider Family Medicine; PCP Obstetrics & Gynecology; Visit Provider Family Medicine
PROC: 10D00Z1 Extraction of Products of Conception, Low, Open Approach (ICD-10-PCS; CPT 59514; principal; 2018-07-21 07:45)
DX: O34.219 Maternal care for unspecified type scar from previous cesarean delivery (principal); O72.1 Other immediate postpartum hemorrhage; D62 Acute posthemorrhagic anemia; Z3A.39 39 weeks gestation of pregnancy; Z37.0 Single live birth; Z30.2 Encounter for sterilization; R00.0 Tachycardia, unspecified; G97.1 Other reaction to spinal and lumbar puncture; R51 Headache
CPT/HCPCS: 36415; 36430; 58611; 59050; 59160; 59510; 59514; 59515; 59899; 80048; 80053; 85014; 85018; 85025; 85384; 85610; 85730; 86850; 86900; 86901; P9016; J0131; J0171; J0690; J1170; J1885; J2274; J2405; J2590; J3010; S0191

== ENCOUNTER → 2019-01-02 14:53 | Outpatient (CLI) | payer OTHER, SELFPAY ==
--- NOTE | 2019-01-02 14:55 | DI.US.S_ITS ---
PROCEDURE: US PELVIC COMPLETE INDICATIONS: IRREGULAR PAINFUL PERIODS TECHNIQUE: Real-time scanning was performed of the pelvic organs, with image documentation. Additional endovaginal scanning was necessary due to incomplete visualization of the adnexal and endometrial structures by transabdominal scanning. COMPARISON: [facility], , PELVIC COMPLETE, 06/29/2015, 19:32. [facility], , US OB TRANSVAGINAL, 05/12/2018, 12:52. FINDINGS: Transabdominal scanning: Limited scanning through the kidneys shows no hydronephrosis. No pathologic free abdominal or pelvic fluid. Endovaginal scanning: Uterus: Uterus is normal in size at 9.6 x 5.1 x 3.8 cm. The endometrium measures 7.9 mm in combined thickness. Heterogeneous myometrium. Small amount of endocervical fluid. Ovaries: Ovaries are normal bilaterally measuring 4.2 x 3.7 x 2.2 cm on the right and 3.1 x 2.7 x 2.3 cm on the left. The IMPRESSION: No source for menorrhagia identified. Dictated by: Renny VICENTE Interpreted: Jamel Ramirez MD on 01/02/2019 at 16:49 Approved by: Jamel Ramirez M.D. on 01/02/2019 at 18:37
--- NOTE | 2019-01-02 14:55 | DI.RAD.S_ITS ---
PROCEDURE: XR LUMBAR SPINE 2-3V INDICATIONS: back pain numbness TECHNIQUE: 3 views of the lumbar spine were acquired. COMPARISON: None. FINDINGS: Bones: 5 qsw-ryg-hwjqztg vertebrae are present. There is normal bony alignment. No vertebral body compression fractures. No suspicious bony lesions. The disc heights are well-preserved. Soft tissues: Overlying bowel gas pattern is normal. No suspicious soft tissue calcifications. IMPRESSION: Normal lumbar spine plain films. Dictated by: Jamel Ramirez M.D. on 01/02/2019 at 15:17 Approved by: Jamel Ramirez M.D. on 01/02/2019 at 15:17
== END ==
PROVIDERS: PCP Family Medicine; Visit Provider Family Medicine
DX: N94.6 Dysmenorrhea, unspecified (principal); N92.6 Irregular menstruation, unspecified; M54.5 Low back pain; R20.0 Anesthesia of skin
CPT/HCPCS: 72100; 76830; 76856

== ENCOUNTER 2019-04-02 09:39 | Outpatient (CLI) | payer OTHER, SELFPAY | END 2019-04-03 10:00 | disposition home or self-care (01) | LOC: PHYS 09:40 | PROVIDERS: PCP Family Medicine; Visit Provider Family Medicine | DX: M25.531 Pain in right wrist (principal); M25.532 Pain in left wrist | CPT/HCPCS: 95886; 95911 ==

== ENCOUNTER → 2019-04-19 12:56 | Outpatient (CLI) | payer OTHER, SELFPAY | LOC: LAB 12:57 | PROVIDERS: PCP Family Medicine; Visit Provider Physician Assistant | DX: J02.9 Acute pharyngitis, unspecified (principal) | CPT/HCPCS: 87070 ==

== ENCOUNTER → 2019-06-22 09:17 | Outpatient (CLI) | payer OTHER, SELFPAY ==
--- NOTE | 2019-06-22 09:19 | DI.US.S_ITS ---
LIMITED ULTRASOUND OF LEFT BREAST AND AXILLA: 06/22/2019 CLINICAL: Palpable left breast lump. Palpable left breast lump by physician. Comparison is made to exams dated: 08/05/2014 ultrasound, 08/05/2014 ultrasound, and 06/22/2019 [facility]. Real-time ultrasound of the left breast 4 o'clock, 8 o'clock, 10 o'clock, and axilla regions was performed. Paredes scale images of the real-time examination were reviewed. No significant abnormalities were seen sonographically in the left breast or the left axilla in the region of palpable abnormality. IMPRESSION: NEGATIVE There is no sonographic evidence of malignancy in the region of palpable abnormality. Return to annual mammogram screening schedule is recommended usually to start at age 40 unless high risk. This exam was interpreted at Station ID: [id number]. Electronically Signed By: Reji Chance M.D. slc/:06/22/2019 17:29:02 letter sent: Normal Exam Ultrasound BI-RADS: 1 Negative
--- NOTE | 2019-06-22 09:19 | DI.US.S_ITS ---
LIMITED ULTRASOUND OF RIGHT BREAST: 06/22/2019 CLINICAL: Rt Palpable right breast lump. Palpable right breast lump by physician. Palpable left breast lump. Palpable left breast lump by physician. Comparison is made to exams dated: 08/05/2014 ultrasound and 08/05/2014 [facility]. Real-time ultrasound of the right breast 7-9 o'clock region was performed. Paredes scale images of the real-time examination were reviewed. No significant abnormalities were seen sonographically in the right breast in the region of palpable abnormality. IMPRESSION: NEGATIVE There is no sonographic evidence of malignancy in the region of palpable abnormality. Exam findings and recommendation were conveyed to the patient by the industrial maintenance repairer helper. Return to annual mammogram screening schedule is recommended usually to start at age 40 unless high risk. This exam was interpreted at Station ID: [id number]. Electronically Signed By: Reji Chance M.D. slc/:06/22/2019 17:24:24 letter sent: Normal Exam Ultrasound BI-RADS: 1 Negative
== END ==
LOC: US 09:18
PROVIDERS: PCP Family Medicine; Referring Provider Family Medicine; Visit Provider Family Medicine
DX: N63.13 Unspecified lump in the right breast, lower outer quadrant (principal); N63.23 Unspecified lump in the left breast, lower outer quadrant
CPT/HCPCS: 76642

== ENCOUNTER → 2019-08-26 13:36 | Outpatient (CLI) | payer OTHER, SELFPAY ==
[2019-08-26 14:44] LABS: Add Manual Diff / Slide Review NO; Basophils Absolute Auto 100 /uL (0-100); Basophils Percent Auto 0.8 % (0-2); Eosinophils Absolute Auto 200 /uL (0-450); Eosinophils Percent Auto 2.2 % (2-4); Hematocrit 44.6 % (36-46); Hemoglobin 14.9 g/dL (12.0-16.0); Lymphocytes Absolute Auto 1700 /uL (1100-4500); Lymphocytes Percent Auto 22.7 % (25-40); Mean Corpuscular HGB Conc 33.4 % (30-36); Mean Corpuscular Hemoglobin 27.8 PG (26-34); Mean Corpuscular Volume 83.2 fL (80-100); Monocytes Absolute Auto 500 /uL (0-900); Monocytes Percent Auto 7.4 % (3-14); Neutrophils Absolute Auto 4900 /uL (1500-7000); Neutrophils Percent Auto 66.9 % (50-75); Platelet Count 315 X10^3/uL (150-400); Red Blood Cell Count 5.36 X10^6/uL (4.0-5.2); Red Cell Distribution Width 12.6 % (11.6-14.8); White Blood Cell Count 7.4 X10^3/uL (4.5-11.0)
[2019-08-26 15:01] LABS: Erythrocyte Sedimentation Rate 1 MM/HR (0-20)
[2019-08-26 15:05] LABS: Alanine Aminotransferase 23 IU/L (<35); Albumin 4.5 g/dL (3.5-5.0); Albumin Globulin Ratio 1.3 (1.0-2.8); Alkaline Phosphatase 50 U/L (38-126); Aspartate Aminotransferase 26 IU/L (14-36); BUN Creatinine Ratio 26.4 (6-22); Bilirubin Total 0.4 mg/dL (0.2-1.3); Blood Urea Nitrogen 19 mg/dL (7-17); Calcium 9.8 mg/dL (8.4-10.2); Carbon Dioxide 26 mmol/L (22-32); Chloride 104 mmol/L (98-107); Estimated Glomerular Filt Rate > 60.0 mL/min (>60); Globulin 3.4 g/dL (1.7-4.1); Glucose 100 mg/dL (70-100); HEMOLYSIS < 15 (0-50); Potassium 3.7 mmol/L (3.4-5.1); Sodium 138 mmol/L (137-145); Total Protein 7.9 g/dL (6.3-8.2)
[2019-08-26 15:13] LABS: C-Reactive Protein Quant < 0.5 mg/dL (<1.0); Rheumatoid Factor < 8.6 IU/mL (<12.0)
[2019-09-01 21:36] LABS: CCP Antibodies IgG/IgA 9 units (0-19)
== END ==
PROVIDERS: PCP Family Medicine; Referring Provider Family Medicine; Visit Provider Family Medicine
DX: M25.40 Effusion, unspecified joint (principal); M25.50 Pain in unspecified joint
CPT/HCPCS: 36415; 80053; 85025; 85651; 86140; 86200; 86430

== ENCOUNTER 2020-01-22 18:37 | Emergency (ER) | payer OTHER, SELFPAY ==
[2020-01-22] VITALS (9 sets, daily range): BP systolic 120–154; BP diastolic 57–76; PULSE 57–72; RESP 14–18; TEMP 36.8; O2SAT 98–100; BMI 35.9
[2020-01-22 19:57] LABS: Add Manual Diff / Slide Review NO; Basophils Absolute Auto 100 /uL (0-100); Basophils Percent Auto 0.8 % (0-2); Eosinophils Absolute Auto 300 /uL (0-450); Eosinophils Percent Auto 2.8 % (2-4); Hematocrit 43.9 % (36-46); Lymphocytes Absolute Auto 2300 /uL (1100-4500); Lymphocytes Percent Auto 23.8 % (25-40); Mean Corpuscular HGB Conc 34.2 % (30-36); Mean Corpuscular Volume 81.9 fL (80-100); Monocytes Absolute Auto 600 /uL (0-900); Monocytes Percent Auto 6.8 % (3-14); Neutrophils Absolute Auto 6200 /uL (1500-7000); Neutrophils Percent Auto 65.8 % (50-75); Platelet Count 359 X10^3/uL (150-400); Red Blood Cell Count 5.36 X10^6/uL (4.0-5.2); White Blood Cell Count 9.5 X10^3/uL (4.5-11.0)
[2020-01-22 20:01] LABS: PTT Partial Thromboplastin Tim 38 SECONDS (26.4-36.2)
[2020-01-22] MEDS: SODIUM CHLORIDE 0.9% 1,000 ML 1000 ML IV (20:02)
[2020-01-22] MEDS: ONDANSETRON 4 MG/2 ML INJ IV (20:03)
[2020-01-22 20:05] LABS: Alanine Aminotransferase 29 IU/L (<35); Albumin 4.5 g/dL (3.5-5.0); Albumin Globulin Ratio 1.3 (1.0-2.8); Alkaline Phosphatase 81 U/L (38-126); Aspartate Aminotransferase 32 IU/L (14-36); BUN Creatinine Ratio 20.3 (6-22); Bilirubin Total 0.4 mg/dL (0.2-1.3); Blood Urea Nitrogen 13 mg/dL (7-17); Calcium 8.9 mg/dL (8.4-10.2); Carbon Dioxide 25 mmol/L (22-32); Chloride 105 mmol/L (98-107); Estimated Glomerular Filt Rate > 60.0 mL/min (>60); Globulin 3.6 g/dL (1.7-4.1); Glucose 94 mg/dL (70-100); HEMOLYSIS < 15 (0-50); Potassium 3.6 mmol/L (3.4-5.1); Sodium 139 mmol/L (137-145); Total Protein 8.1 g/dL (6.3-8.2)
--- NOTE | 2020-01-22 20:05 | ED_ITS ---
HPI - Headache <Nadia Crockett PA-C - Last Filed: 01/23/20 00:18> General Chief Complaint: Headache Stated Complaint: PRESSURE HEADACHE BLACKED OUT VISION IN AND OUT Time Seen by Provider: 01/22/20 19:48 Mode of arrival: Ambulatory Limitations: no limitations History of Present Illness HPI Narrative: 29-year-old obese woman with menorrhagia, chronic headaches presents to the emergency department complaining of a headache that was different for her with an episode of things ?going black in my vision? today wh ile she was driving. Patient states that she had headaches ever since she gave 2 years ago that are frontal and almost every day, however in the last few months she has been having increasing left-sided throbbing headaches that are usually fairly short-lived but today her headache was slightly worse than usual for her and while she was driving she felt that her vision was turning into a tunnel and fading and so she pulled over immediately and everything went black. She states that she thinks she was out for a couple of minutes. Since that time this afternoon she has been having occasional intermittent changes with her vision where she feels like her vision is a little bit blurry compared to usual, she also complains of light sensitivity. She also states that ever since she gave she has been having numbness and tingling of her hands and feet when she gets headaches; she has some chronic nerve issues that have been diagnosed including some weakness in her right arm she feels that the weakness in her right arm and hand has been worsening over the last few months. She also endorses a now chronic sore throat that is and ?itching sensation in her throat with associated lymphadenopathy that has been present for over 3 months and evaluated by her PCP. She also endorses chronic issues with rapid heart rate that can last for 1-2 days at a time she does not currently feel her heart is fast. She denies any recent fever, chills, neck pain, nausea, vomiting, diarrhea, abdominal pain, chest pain, back pain or any other symptoms. Patient states she has generally been in her normal state of health otherwise. MD Complaint: headache and other (Vision going dark, vision changes) Onset description: gradual and other Location: left, temporal and parietal Severity: moderate Severity scale (1-10): 4 Quality: throbbing, intermittent (Last for an hour or 2 and then resolves and then comes back) and different than previous headaches (Chronic headaches for 2 years normally frontal and achy, current headache is left-sided and throbbing) Relieving factors: NSAIDs and dark room Exacerbating factors: none Associated symptoms: photophobia, tingling (Of hands and feet) and other (Vision changes) Treatments prior to arrival: ibuprofen Related Data Previous Rx's Medication Instructions Recorded prenat.vits,gregory,aii-qhgd-enoys 1 tab PO DAILY #30 tab 09/22/18 ibuprofen 600 mg tablet 600 mg PO Q6H PRN #20 tab 11/13/18 ketoconazole 2 % topical cream See Rx Instructions TOP BID #30 08/25/19 gram triamcinolone acetonide 0.1 % See Rx Instructions TOP BID #15 08/25/19 topical cream gram amoxicillin 875 mg tablet 875 mg PO BID #10 tab 12/02/19 Allergies Allergy/AdvReac Type Severity Reaction Status Date / Time No Known Drug Allergies Allergy Verified 01/22/20 18:55 Review of Systems <Nadia Crockett PA-C - Last Filed: 01/23/20 00:18> Review of Systems Narrative: GENERAL: Denies chills, fatigue, malaise, fever, sweats. HEENT: Denies sinus pain, positive for occasional left ear pain, positive for chronicitchy sore throat, denies difficulty swallowing, positive for intermittent dizziness when her heart is going fast, positive for vision changes today, sensation of vision being blurry at times. RESPIRATORY: Denies dyspnea, cough, wheezing, hemoptysis, sputum. CARDIOVASCULAR: Denies chest pain, endorses episode of ?things going dark? frequent episodes of palpitations lasting up to a day or 2, denies orthopnea, edema, GASTROINTESTINAL: Denies nausea, vomiting, abdominal pain, diarrhea, constipation, melena. : Denies dysuria, frequency, incontinence, hematuria, urinary retention. MUSCULOSKELETAL: Endorses mild chronic weakness of her right arm and hand worsening in the last 3 months slightly, denies joint pain, or bony pain SKIN: Denies rash, skin lesions, or other NEUROLOGIC: See MSK denies other weakness, positive for frequent headache, frequent intermittent tingling of hands and feet, denies numbness, change in speech, confusion, seizures, incoordination. PSYCHIATRIC: No concerning psychosocial issues. 12 point review of systems is negative except for those stated above Patient History <Nadia Crockett PA-C - Last Filed: 01/23/20 00:18> Medical History Chicken pox (Resolved ~1997) Depression (Chronic ~2008) History of irregular menstrual cycles (Chronic) Menorrhagia with irregular cycle (Acute) MRSA (methicillin resistant Staphylococcus aureus) (Resolved ~2009) Surgical History Status post delivery (06/20/11) Status post delivery (01/20/14) Status post delivery (11/21/16) Family History Father Age: 65 Hypertension Social History marital status: household members: spouse and children Smoking Status: Never smoker alcohol intake: never substance use type: does not use Smoking Status: Never smoker Substance Use Type: does not use Exam <Nadia Crockett PA-C - Last Filed: 01/23/20 00:18> Narrative Exam Narrative: GENERAL: 29 year old obese patient appears stated age. Well- nourished, well-developed patient, in mild distress. HEAD: Atraumatic. Normocephalic. EYES: Pupils equal round and reactive. Extraocular motions intact. No scleral icterus. No injection or drainage. ENT: Nose without bleeding, purulent drainage. Throat without erythema, tonsillar hypertrophy or exudate. Airway patent. NECK: Trachea midline. Non tender. Range of motion is intact and pain free, no meningeal signs CARDIOVASCULAR: Regular rate and rhythm without murmurs, gallops, or rubs. RESPIRATORY: Clear to auscultation. Breath sounds equal bilaterally. No wheezes, rales, or rhonchi. GASTROINTESTINAL: Abdomen soft, non-tender, nondistended. EXTREMITIES: No edema or joint tenderness. BACK: Nontender without deformity or crepitance. No flank tenderness. NEURO: AOx3. Cranial nerves are intact, negative arm drift, bjvnvt-gd-ygoh intact, coordination is intact, strength is 5/5 bilaterally upper and lower SKIN: No rash or erythema of visible areas Initial Vital Signs Initial Vital Signs: Vital Signs Temperature 98.2 F 01/22/20 18:55 Pulse Rate 71 01/22/20 18:55 Respiratory Rate 18 01/22/20 18:55 Blood Pressure 149/72 H 01/22/20 18:55 Pulse Oximetry 100 01/22/20 18:55 <Staci Ortega MD - Last Filed: 01/23/20 00:25> Initial Vital Signs Initial Vital Signs: Vital Signs Temperature 98.2 F 01/22/20 18:55 Pulse Rate 71 01/22/20 18:55 Respiratory Rate 18 01/22/20 18:55 Blood Pressure 149/72 H 01/22/20 18:55 Pulse Oximetry 100 01/22/20 18:55 Scores <Nadia Crockett PA-C - Last Filed: 01/23/20 00:18> GCS Constantin coma scale eye opening: Spontaneous Constantin coma scale verbal response: Orientated [place] coma scale motor response: Obey commands Constantin coma scale total score: 15 Course <Nadia Crockett PA-C - Last Filed: 01/23/20 00:18> Course Course Narrative: Re-examine the patient, her headache was not reduce with Tylenol though it is only 4 of 10 a feels she is having a complex migraine and initiate a migraine cocktail. Discussed with the patient the importance of following up with her primary care regarding her headaches this recent episode, be palpitations she reports an ongoing issues with a sore throat, patient is in agreement also provide emergency return precautions. Orders Ordered: ED Orders 01/22/20 19:43 Complete Blood Count AUTO DIFF Stat Comprehensive Metabolic Panel Stat Partial Thromboplastin Time Stat Test Serum,Qual Stat Prothrombin Time INR Stat 01/22/20 19:51 EKG-12 Lead Stat 01/22/20 20:37 CT head/brain wo con Stat Discontinued Medications Acetaminophen (Tylenol) 650 mg PO NOW ONE Stop: 01/22/20 20:23 Last Admin: 01/22/20 20:54 Dose: 650 mg Documented by: RMARTIN Dexamethasone (Decadron) 10 mg IV NOW ONE Stop: 01/22/20 21:47 Last Admin: 01/22/20 22:05 Dose: 10 mg Documented by: RMARTIN Diphenhydramine HCl (Benadryl) 25 mg IV NOW ONE Stop: 01/22/20 21:47 Last Admin: 01/22/20 22:03 Dose: 25 mg Documented by: YANG Sodium Chloride (Normal Saline 0.9%) 1,000 mls @ 1,000 mls/hr IV BOLUS ONE Stop: 01/22/20 20:50 Last Infusion: 01/22/20 22:31 Dose: 0 mls/hr Documented by: Admin: 01/22/20 20:02 Dose: 1,000 mls/hr Documented by: YANG Ketorolac Tromethamine (Toradol) 15 mg IV NOW ONE Stop: 01/22/20 21:47 Last Admin: 01/22/20 22:05 Dose: 15 mg Documented by: YANG Metoclopramide HCl (Reglan) 10 mg IV NOW ONE Stop: 01/22/20 21:47 Last Admin: 01/22/20 22:06 Dose: 10 mg Documented by: YANG Ondansetron HCl (Zofran) 4 mg IV NOW ONE Stop: 01/22/20 19:52 Last Admin: 01/22/20 20:03 Dose: 4 mg Documented by: YANG Vital Signs Vital signs: Vital Signs - 8 hr 01/22/20 18:55 01/22/20 19:30 01/22/20 20:00 Temperature 98.2 F Pulse Rate 71 72 69 Respiratory Rate 18 16 16 Blood Pressure 149/72 H 139/63 154/73 H Pulse Oximetry 100 98 99 01/22/20 20:31 01/22/20 21:00 01/22/20 21:30 Temperature Pulse Rate 66 64 63 Respiratory Rate 15 14 16 Blood Pressure 125/60 126/76 124/63 Pulse Oximetry 100 100 99 01/22/20 22:00 01/22/20 22:17 01/22/20 22:30 Temperature Pulse Rate 64 57 L 66 Respiratory Rate 16 14 14 Blood Pressure 121/57 L 124/65 120/64 Pulse Oximetry 98 99 99 <Staci Orteag MD - Last Filed: 01/23/20 00:25> Orders Ordered: ED Orders 01/22/20 19:43 Complete Blood Count AUTO DIFF Stat Comprehensive Metabolic Panel Stat Partial Thromboplastin Time Stat Test Serum,Qual Stat Prothrombin Time INR Stat 01/22/20 19:51 EKG-12 Lead Stat 01/22/20 20:37 CT head/brain wo con Stat Discontinued Medications Acetaminophen (Tylenol) 650 mg PO NOW ONE Stop: 01/22/20 20:23 Last Admin: 01/22/20 20:54 Dose: 650 mg Documented by: YANG Dexamethasone (Decadron) 10 mg IV NOW ONE Stop: 01/22/20 21:47 Last Admin: 01/22/20 22:05 Dose: 10 mg Documented by: YANG Diphenhydramine HCl (Benadryl) 25 mg IV NOW ONE Stop: 01/22/20 21:47 Last Admin: 01/22/20 22:03 Dose: 25 mg Documented by: YANG Sodium Chloride (Normal Saline 0.9%) 1,000 mls @ 1,000 mls/hr IV BOLUS ONE Stop: 01/22/20 20:50 Last Infusion: 01/22/20 22:31 Dose: 0 mls/hr Documented by: Admin: 01/22/20 20:02 Dose: 1,000 mls/hr Documented by: YANG Ketorolac Tromethamine (Toradol) 15 mg IV NOW ONE Stop: 01/22/20 21:47 Last Admin: 01/22/20 22:05 Dose: 15 mg Documented by: YANG Metoclopramide HCl (Reglan) 10 mg IV NOW ONE Stop: 01/22/20 21:47 Last Admin: 01/22/20 22:06 Dose: 10 mg Documented by: YANG Ondansetron HCl (Zofran) 4 mg IV NOW ONE Stop: 01/22/20 19:52 Last Admin: 01/22/20 20:03 Dose: 4 mg Documented by: YANG Vital Signs Vital signs: Vital Signs - 8 hr 01/22/20 18:55 01/22/20 19:30 01/22/20 20:00 Temperature 98.2 F Pulse Rate 71 72 69 Respiratory Rate 18 16 16 Blood Pressure 149/72 H 139/63 154/73 H Pulse Oximetry 100 98 99 01/22/20 20:31 01/22/20 21:00 01/22/20 21:30 Temperature Pulse Rate 66 64 63 Respiratory Rate 15 14 16 Blood Pressure 125/60 126/76 124/63 Pulse Oximetry 100 100 99 01/22/20 22:00 01/22/20 22:17 01/22/20 22:30 Temperature Pulse Rate 64 57 L 66 Respiratory Rate 16 14 14 Blood Pressure 121/57 L 124/65 120/64 Pulse Oximetry 98 99 99 MDM - Headache <Nadia Crockett PA-C - Last Filed: 01/23/20 00:18> Differential Diagnosis Differential diagnosis: Likely migraine, tension headache, subarachnoid hemorrhage, headache, meningitis and other (Atypical migraine) Medical Records Attestation: I reviewed the patient's medical records. Lab Data Attestation: I reviewed the patient's lab results. Result diagrams: 01/22/20 19:43 01/22/20 19:43 Labs: Lab Results 01/22/20 01/22/20 01/22/20 Range/Units 19:43 19:43 19:43 WBC 9.5 (4.5-11.0) X10^3/uL RBC 5.36 H (4.0-5.2) X10^6/uL Hgb 15.0 (12.0-16.0) g/dL Hct 43.9 (36-46) % MCV 81.9 (80-100) fL MCH 28.0 (26-34) PG MCHC 34.2 (30-36) % RDW 13.0 (11.6-14.8) % Plt Count 359 (150-400) X10^3/uL Neut % (Auto) 65.8 (50-75) % Lymph % (Auto) 23.8 L (25-40) % [place] % (Auto) 6.8 (3-14) % Eos % (Auto) 2.8 (2-4) % Baso % (Auto) 0.8 (0-2) % Neut # (Auto) 6200 (5351-7537) /uL Lymph # (Auto) 2300 (1991-2175) /uL [place] # (Auto) 600 (0-900) /uL Eos # (Auto) 300 (0-450) /uL Baso # (Auto) 100 (0-100) /uL PT 12.0 (10.1-12.7) SECONDS INR 1.0 (0.9-1.3) APTT 38 H D (26.4-36.2) SECONDS Sodium 139 (137-145) mmol/L Potassium 3.6 (3.4-5.1) mmol/L Chloride 105 (98-107) mmol/L Carbon Dioxide 25 (22-32) mmol/L BUN 13 (7-17) mg/dL Creatinine 0.64 (0.52-1.04) mg/dL Estimated GFR > 60.0 (>60) mL/min BUN/Creatinine Ratio 20.3 (6-22) Glucose 94 (70-100) mg/dL Calcium 8.9 (8.4-10.2) mg/dL Total Bilirubin 0.4 (0.2-1.3) mg/dL AST 32 (14-36) IU/L ALT 29 (<35) IU/L Alkaline Phosphatase 81 (38-126) U/L Total Protein 8.1 (6.3-8.2) g/dL Albumin 4.5 (3.5-5.0) g/dL Globulin 3.6 (1.7-4.1) g/dL Albumin/Globulin Ratio 1.3 (1.0-2.8) Serum , Qual (Negative) 01/22/20 Range/Units 19:43 WBC (4.5-11.0) X10^3/uL RBC (4.0-5.2) X10^6/uL Hgb (12.0-16.0) g/dL Hct (36-46) % MCV (80-100) fL MCH (26-34) PG MCHC (30-36) % RDW (11.6-14.8) % Plt Count (150-400) X10^3/uL Neut % (Auto) (50-75) % Lymph % (Auto) (25-40) % [place] % (Auto) (3-14) % Eos % (Auto) (2-4) % Baso % (Auto) (0-2) % Neut # (Auto) (2406-5145) /uL Lymph # (Auto) (3740-4599) /uL [place] # (Auto) (0-900) /uL Eos # (Auto) (0-450) /uL Baso # (Auto) (0-100) /uL PT (10.1-12.7) SECONDS INR (0.9-1.3) APTT (26.4-36.2) SECONDS Sodium (137-145) mmol/L Potassium (3.4-5.1) mmol/L Chloride (98-107) mmol/L Carbon Dioxide (22-32) mmol/L BUN (7-17) mg/dL Creatinine (0.52-1.04) mg/dL Estimated GFR (>60) mL/min BUN/Creatinine Ratio (6-22) Glucose (70-100) mg/dL Calcium (8.4-10.2) mg/dL Total Bilirubin (0.2-1.3) mg/dL AST (14-36) IU/L ALT (<35) IU/L Alkaline Phosphatase (38-126) U/L Total Protein (6.3-8.2) g/dL Albumin (3.5-5.0) g/dL Globulin (1.7-4.1) g/dL Albumin/Globulin Ratio (1.0-2.8) Serum , Qual Negative (Negative) Imaging Data CT scan - head: Attestation: I personally reviewed and interpreted this imaging study as follows: Radiologist's Impression: [place] [address] CT Scan Report Signed Patient: Thania Fonseca EMR#: [id number] : 1990Acct:[id number] Age/Sex: 29 / FDate of Service: 01/22/20 Loc: ED Accession Number: [id number] Procedure: CT head/brain wo con Ordering Provider: Nadia Crockett P.A-C PROCEDURE: CT HEAD/BRAIN WO CON INDICATIONS: headache syncopal episode TECHNIQUE: Noncontrast 4.5 mm thick angled axial sections acquired from the foramen magnum to the vertex, with coronal and sagittal reformats. For radiation dose reduction, the following was used: automated exposure control, adjustment of mA and/or kV according to patient size. COMPARISON: None. FINDINGS: Image quality: Excellent. CSF spaces: Basal cisterns are patent. No extra-axial fluid collections. Ventricles are normal in size and shape. Brain: No midline shift. No intracranial masses or hemorrhage. Paredes-white matter interface is normal. Skull and face: Calvarium and visualized facial bones are intact, without suspicious lesions. Sinuses: Visualized sinuses and mastoids are clear. IMPRESSION: No acute intracranial findings. Dictated by: Delmy Abernathy M.D. on 01/22/2020 at 20:53 Approved by: Delmy Abernathy M.D. on 01/22/2020 at 20:55 ECG Data Attestation: I personally reviewed and interpreted this ECG as follows: Interpretation: Vent rate 69 MT 154 QRS 104 QT 411 P 63 R 37 T 38 MDM Narrative Medical decision making narrative: Well-appearing 29-year-old woman, history of nearly daily headaches with associated tingling of hands and feet, chronic mild weakness of the right forearm and hand, obese, presents to the emergency department complaining of a headache that was slightly worse than usual today and as a syncopal episode. Her exam is unremarkable, her labs returned unremarkable, CT scan noncontrast is obtained. This is also unremarkable. Headache is improved with Tylenol and migraine cocktail in the emergency department. Discussed with the patient follow-up with her primary care provider, emergency return precautions, patient is understanding and in agreement all questions answered. <Staci Ortega MD - Last Filed: 01/23/20 00:25> Lab Data Labs: Lab Results 01/22/20 01/22/20 01/22/20 Range/Units 19:43 19:43 19:43 WBC 9.5 (4.5-11.0) X10^3/uL RBC 5.36 H (4.0-5.2) X10^6/uL Hgb 15.0 (12.0-16.0) g/dL Hct 43.9 (36-46) % MCV 81.9 (80-100) fL MCH 28.0 (26-34) PG MCHC 34.2 (30-36) % RDW 13.0 (11.6-14.8) % Plt Count 359 (150-400) X10^3/uL Neut % (Auto) 65.8 (50-75) % Lymph % (Auto) 23.8 L (25-40) % [place] % (Auto) 6.8 (3-14) % Eos % (Auto) 2.8 (2-4) % Baso % (Auto) 0.8 (0-2) % Neut # (Auto) 6200 (1810-3639) /uL Lymph # (Auto) 2300 (5955-3632) /uL [place] # (Auto) 600 (0-900) /uL Eos # (Auto) 300 (0-450) /uL Baso # (Auto) 100 (0-100) /uL PT 12.0 (10.1-12.7) SECONDS INR 1.0 (0.9-1.3) APTT 38 H D (26.4-36.2) SECONDS Sodium 139 (137-145) mmol/L Potassium 3.6 (3.4-5.1) mmol/L Chloride 105 (98-107) mmol/L Carbon Dioxide 25 (22-32) mmol/L BUN 13 (7-17) mg/dL Creatinine 0.64 (0.52-1.04) mg/dL Estimated GFR > 60.0 (>60) mL/min BUN/Creatinine Ratio 20.3 (6-22) Glucose 94 (70-100) mg/dL Calcium 8.9 (8.4-10.2) mg/dL Total Bilirubin 0.4 (0.2-1.3) mg/dL AST 32 (14-36) IU/L ALT 29 (<35) IU/L Alkaline Phosphatase 81 (38-126) U/L Total Protein 8.1 (6.3-8.2) g/dL Albumin 4.5 (3.5-5.0) g/dL Globulin 3.6 (1.7-4.1) g/dL Albumin/Globulin Ratio 1.3 (1.0-2.8) Serum , Qual (Negative) 01/22/20 Range/Units 19:43 WBC (4.5-11.0) X10^3/uL RBC (4.0-5.2) X10^6/uL Hgb (12.0-16.0) g/dL Hct (36-46) % MCV (80-100) fL MCH (26-34) PG MCHC (30-36) % RDW (11.6-14.8) % Plt Count (150-400) X10^3/uL Neut % (Auto) (50-75) % Lymph % (Auto) (25-40) % [place] % (Auto) (3-14) % Eos % (Auto) (2-4) % Baso % (Auto) (0-2) % Neut # (Auto) (2929-9114) /uL Lymph # (Auto) (2234-8401) /uL [place] # (Auto) (0-900) /uL Eos # (Auto) (0-450) /uL Baso # (Auto) (0-100) /uL PT (10.1-12.7) SECONDS INR (0.9-1.3) APTT (26.4-36.2) SECONDS Sodium (137-145) mmol/L Potassium (3.4-5.1) mmol/L Chloride (98-107) mmol/L Carbon Dioxide (22-32) mmol/L BUN (7-17) mg/dL Creatinine (0.52-1.04) mg/dL Estimated GFR (>60) mL/min BUN/Creatinine Ratio (6-22) Glucose (70-100) mg/dL Calcium (8.4-10.2) mg/dL Total Bilirubin (0.2-1.3) mg/dL AST (14-36) IU/L ALT (<35) IU/L Alkaline Phosphatase (38-126) U/L Total Protein (6.3-8.2) g/dL Albumin (3.5-5.0) g/dL Globulin (1.7-4.1) g/dL Albumin/Globulin Ratio (1.0-2.8) Serum , Qual Negative (Negative) Discharge Plan Departure Patient Disposition: Home Clinical Impression: Migraine Qualifiers: Migraine type: unspecified Status migrainosus presence: without status migrainosus Intractability: not intractable Qualified Code(s): G43.909 - Migraine, unspecified, not intractable, without status migrainosus Syncope Qualifiers: Syncope type: unspecified Qualified Code(s): R55 - Syncope and collapse Discharge Date/Time: 01/22/20 22:52 Instructions: DI for Syncope in Adults (Fainting), DI for Migraine, DI for Headache Activity Restrictions/Additional Instructions: Thank you for letting us be part of your care in the emergency department today. This CT scan that we performed did not show any evidence of bleeding in your brain, there are many possible reasons for the different headaches you are experiencing and the episode of syncope that occurred today, I do think it is very important you talk to your primary care about your varied symptoms specifically including your ongoing and now changing headaches and prophylaxis for these, he should also talk to your primary care about possibly seeing Cardiology as sometimes syncope can be caused by problems structurally with a heart, and you also described frequent episodes of palpitations. As we discussed if you do develop any new or concerning symptoms or have another episode of syncope please do not hesitate to seek medical care or be re- evaluated in the emergency department. We treated her headache with a migraine cocktail in the emergency department, I am not going to change your medications for headaches I will leave that up to your primary care. There is no evidence of an emergent or life threatening illness at this time, but follow up with your doctor in 1-2 days is recommended nonetheless to continue to rule out serious underlying causes of your symptoms. Please call the office for an appointment. Please return to the Emergency Department for any worsening or persistent symptoms. Please take medications as directed. Prescriptions: No Action prenat.vits,gregory,pei-ljuj-jjejv tablet 1 tab PO DAILY Qty: 30 RF: 11 triamcinolone acetonide 0.1 % cream See Rx Instructions TOP BID Qty: 15 RF: 0 ketoconazole 2 % cream See Rx Instructions TOP BID Qty: 30 RF: 0 ibuprofen 600 mg tablet 600 mg PO Q6H PRN (Reason: pain) Qty: 20 RF: 0 amoxicillin 875 mg tablet 875 mg PO BID Qty: 10 RF: 0 Referrals: Juan Antonio Mack MD [Primary Care Provider] - Stand Alone Forms: Work Release Note <Staci Ortega MD - Last Filed: 01/23/20 00:25> [facility]: I was immediately available in the department for consultation throughout this patient's visit. I agree with documentation as above. Staci Ortega MD
--- NOTE | 2020-01-22 20:37 | DI.CT.S_ITS ---
PROCEDURE: CT HEAD/BRAIN WO CON INDICATIONS: headache syncopal episode TECHNIQUE: Noncontrast 4.5 mm thick angled axial sections acquired from the foramen magnum to the vertex, with coronal and sagittal reformats. For radiation dose reduction, the following was used: automated exposure control, adjustment of mA and/or kV according to patient size. COMPARISON: None. FINDINGS: Image quality: Excellent. CSF spaces: Basal cisterns are patent. No extra-axial fluid collections. Ventricles are normal in size and shape. Brain: No midline shift. No intracranial masses or hemorrhage. Paredes-white matter interface is normal. Skull and face: Calvarium and visualized facial bones are intact, without suspicious lesions. Sinuses: Visualized sinuses and mastoids are clear. IMPRESSION: No acute intracranial findings. Dictated by: Delmy Abernathy M.D. on 01/22/2020 at 20:53 Approved by: Delmy Abernathy M.D. on 01/22/2020 at 20:55
[2020-01-22 20:47] LABS: Pregnancy Test Serum,Qual Negative (Negative)
[2020-01-22] MEDS: ACETAMINOPHEN 325 MG TABLET 650 MG PO (20:54)
[2020-01-22] MEDS: diphenhydrAMINE 50 MG/ML VIAL 25 MG IV (22:03)
[2020-01-22] MEDS: DEXAMETHASONE 10 MG/ML VIAL IV (22:05)
[2020-01-22] MEDS: KETOROLAC 60 MG/2 ML VIAL 15 MG IV (22:05)
[2020-01-22] MEDS: METOCLOPRAMIDE 10 MG/2 ML INJ IV (22:06)
== END 2020-01-22 22:52 | disposition home or self-care (01) ==
PROVIDERS: Emergency Provider Student in an Organized Health Care Education/Training Program; PCP Family Medicine
DX: G43.909 Migraine, unspecified, not intractable, without status migrainosus (principal); R55 Syncope and collapse; E66.01 Morbid (severe) obesity due to excess calories; N92.0 Excessive and frequent menstruation with regular cycle; H92.02 Otalgia, left ear
CPT/HCPCS: 36415; 70450; 80053; 84703; 85025; 85610; 85730; 93005; 96361; 96374; 96375; 99284; J1100; J1200; J1885; J2405; J2765

== ENCOUNTER → 2021-01-13 09:37 | Outpatient (CLI) | payer OTHER, SELFPAY | PROVIDERS: PCP Family Medicine; Visit Provider Physician Assistant | DX: N34.3 Urethral syndrome, unspecified (principal) | CPT/HCPCS: 87077; 87086; 87186 ==

== ENCOUNTER 2021-01-15 16:44 | Emergency (ER) | payer OTHER, SELFPAY ==
[2021-01-15 16:46] VITALS: BP 132/61; PULSE 85; RESP 20; TEMP 36.6; O2SAT 99
[2021-01-15 17:06] LABS: Add Manual Diff / Slide Review NO; Basophils Absolute Auto 100 /uL (0-100); Eosinophils Absolute Auto 200 /uL (0-450); Eosinophils Percent Auto 2.3 % (2-4); Hematocrit 41.5 % (36-46); Hemoglobin 13.9 g/dL (12.0-16.0); Lymphocytes Absolute Auto 2000 /uL (1100-4500); Lymphocytes Percent Auto 23.5 % (25-40); Mean Corpuscular HGB Conc 33.6 % (30-36); Mean Corpuscular Hemoglobin 27.8 PG (26-34); Mean Corpuscular Volume 82.9 fL (80-100); Monocytes Absolute Auto 1100 /uL (0-900); Monocytes Percent Auto 12.5 % (3-14); Neutrophils Absolute Auto 5100 /uL (1500-7000); Neutrophils Percent Auto 60.7 % (50-75); Platelet Count 273 X10^3/uL (150-400); Red Blood Cell Count 5.01 X10^6/uL (4.0-5.2); Red Cell Distribution Width 12.4 % (11.6-14.8); White Blood Cell Count 8.4 X10^3/uL (4.5-11.0)
[2021-01-15] MEDS: KETOROLAC 30 MG/ML VIAL 15 MG IV (17:09)
[2021-01-15 17:19] LABS: Lactate (Lactic Acid) 0.6 mmol/L (0.7-2.1)
[2021-01-15 17:20] LABS: Alanine Aminotransferase 111 IU/L (<35); Albumin 4.3 g/dL (3.5-5.0); Albumin Globulin Ratio 1.2 (1.0-2.8); Alkaline Phosphatase 105 U/L (38-126); Aspartate Aminotransferase 103 IU/L (14-36); BUN Creatinine Ratio 15.6 (6-22); Bilirubin Total 0.5 mg/dL (0.2-1.3); Blood Urea Nitrogen 12 mg/dL (7-17); Calcium 8.9 mg/dL (8.4-10.2); Carbon Dioxide 29 mmol/L (22-32); Chloride 103 mmol/L (98-107); Estimated Glomerular Filt Rate > 60.0 mL/min (>60); Globulin 3.6 g/dL (1.7-4.1); Glucose 106 mg/dL (70-100); HEMOLYSIS < 15 (0-50); Potassium 3.7 mmol/L (3.4-5.1); Sodium 138 mmol/L (137-145); Total Protein 7.9 g/dL (6.3-8.2)
[2021-01-15 18:01] LABS: Procalcitonin 0.22 ng/mL (<0.5)
--- NOTE | 2021-01-15 18:20 | ED.GENADULT ---
HPI - General Adult General Chief complaint: Abdominal Pain Stated complaint: BLADDER INFECTION LOWER BACK PAIN NIGHT SWEATING Time Seen by Provider: 01/15/21 16:54 Source: patient Mode of arrival: Ambulatory History of Present Illness HPI narrative: Patient is a 30-year-old female. Last week she started having urinary symptoms to include dysuria and frequency. She went to the walk-in clinic. Urine sample obtained. Was diagnosed with the urinary tract infection. Was sent home with Macrobid. Has been taking Macrobid as directed since then. She states that her symptoms have not improved and actually of worsened. No fevers. Nausea but no vomiting. Still having urinary frequency and dysuria and now is having right-sided flank pain. Related Data Previous Rx's Medication Instructions Recorded triamcinolone acetonide 0.1 % See Rx Instructions TOP BID #15 08/25/19 topical cream gram nitrofurantoin 100 mg PO Q12H 5 Days #10 cap 01/13/21 monohydrate/macrocrystals 100 mg capsule (Macrobid) ondansetron 4 mg disintegrating 4 mg PO Q6H PRN #14 tab 01/15/21 tablet sulfamethoxazole 800 1 tab PO BID 14 Days #28 tab 01/15/21 mg-trimethoprim 160 mg tablet (Bactrim DS) Allergies Allergy/AdvReac Type Severity Reaction Status Date / Time No Known Drug Allergies Allergy Verified 01/13/21 10:02 Review of Systems Constitutional Constitutional: Reports as per HPI and Reports system reviewed and no additional complaints, except as documented Gastrointestinal Gastrointestinal: Reports as per HPI and Reports system reviewed and no additional complaints, except as documented Genitourinary Genitourinary: Reports system reviewed and no additional complaints, except as documented and Reports as per HPI Musculoskeletal Musculoskeletal: Reports system reviewed and no additional complaints, except as documented Hematologic/Lymphatic On Anticoagulants: No Patient History Medical History Chicken pox (~1997) Depression (~2008) History of irregular menstrual cycles Menorrhagia with irregular cycle MRSA (methicillin resistant Staphylococcus aureus) (~2009) Surgical History Status post delivery (06/20/11) Status post delivery (01/20/14) Status post delivery (11/21/16) Family History Father Age: 66 Hypertension Social History marital status: household members: spouse and children Smoking Status: Never smoker alcohol intake: never substance use type: does not use Smoking Status: Never smoker Substance Use Type: does not use Exam Initial Vital Signs Initial Vital Signs: Vital Signs Temperature 97.8 F 01/15/21 16:46 Pulse Rate 85 01/15/21 16:46 Respiratory Rate 20 01/15/21 16:46 Blood Pressure 132/61 01/15/21 16:46 Pulse Oximetry 99 01/15/21 16:46 Const General: cooperative and healthy appearing Resp Effort & Inspection: normal respiratory effort Cardio Rate: regular rate GI Inspection: normal to inspection Back/Spine/Pelvis Back: CVA tenderness right Skin General: no rashes or lesions noted Neuro General: patient alert, patient awake, patient oriented x3 and moves all extremities Extrem General: normal to inspection Course Orders Ordered: ED Orders 01/15/21 17:00 Complete Blood Count AUTO DIFF Stat Comprehensive Metabolic Panel Stat Lactate (Lactic Acid) Stat Procalcitonin Stat Discontinued Medications Ketorolac Tromethamine (Ketorolac 30 Mg/Ml Vial) 15 mg IV NOW ONE Stop: 01/15/21 16:54 Last Admin: 01/15/21 17:09 Dose: 15 mg Documented by: DINORA Ondansetron HCl (Ondansetron 4 Mg Odt Prepack) 1 bottle MISC SEEINSTR ONE Stop: 01/15/21 18:21 Last Admin: 01/15/21 18:28 Dose: 1 bottle Documented by: DINORA Trimethoprim/Sulfamethoxazole (Trimeth/Sulfa 160/800 (Ds) Tablet) 1 tab PO NOW ONE Stop: 01/15/21 18:21 Last Admin: 01/15/21 18:28 Dose: 1 tab Documented by: DINORA Vital Signs Vital signs: Vital Signs - 8 hr 01/15/21 16:46 Temperature 97.8 F Pulse Rate 85 Respiratory Rate 20 Blood Pressure 132/61 Pulse Oximetry 99 Medical Decision Making Lab Data Lab results reviewed: Yes I reviewed the patient's lab results. Result diagrams: 01/15/21 17:00 01/15/21 17:00 Labs: Lab Results 01/15/21 01/15/21 01/15/21 Range/Units 17:00 17:00 17:00 WBC 8.4 (4.5-11.0) X10^3/uL RBC 5.01 (4.0-5.2) X10^6/uL Hgb 13.9 (12.0-16.0) g/dL Hct 41.5 (36-46) % MCV 82.9 (80-100) fL MCH 27.8 (26-34) PG MCHC 33.6 (30-36) % RDW 12.4 (11.6-14.8) % Plt Count 273 (150-400) X10^3/uL Neut % (Auto) 60.7 (50-75) % Lymph % (Auto) 23.5 L (25-40) % [place] % (Auto) 12.5 (3-14) % Eos % (Auto) 2.3 (2-4) % Baso % (Auto) 1.0 (0-2) % Neut # (Auto) 5100 (0671-4437) /uL Lymph # (Auto) 2000 (9854-2431) /uL [place] # (Auto) 1100 H (0-900) /uL Eos # (Auto) 200 (0-450) /uL Baso # (Auto) 100 (0-100) /uL Sodium 138 (137-145) mmol/L Potassium 3.7 (3.4-5.1) mmol/L Chloride 103 (98-107) mmol/L Carbon Dioxide 29 (22-32) mmol/L BUN 12 (7-17) mg/dL Creatinine 0.77 (0.52-1.04) mg/dL Estimated GFR > 60.0 (>60) mL/min BUN/Creatinine Ratio 15.6 (6-22) Glucose 106 H (70-100) mg/dL Lactate 0.6 L (0.7-2.1) mmol/L Calcium 8.9 (8.4-10.2) mg/dL Total Bilirubin 0.5 (0.2-1.3) mg/dL AST 103 H (14-36) IU/L ALT 111 H (<35) IU/L Alkaline Phosphatase 105 (38-126) U/L Total Protein 7.9 (6.3-8.2) g/dL Albumin 4.3 (3.5-5.0) g/dL Globulin 3.6 (1.7-4.1) g/dL Albumin/Globulin Ratio 1.2 (1.0-2.8) Procalcitonin 0.22 (<0.5) ng/mL MDM Narrative Medical decision making narrative: He review of her urine culture does show that she has a pansensitive E coli. The Macrobid should have taking care of the issue however despite this her symptoms seem to have worsened and now given the fact that she is having nausea and right-sided flank pain I do have concern for pyelonephritis. Going off of the culture that has already been obtained we will start her on Bactrim. Was given her 1st dose here in the ER. Will also send home with nausea medicine. No indication for admission to the hospital today. Labs are reassuring. She was given return precautions and follow-up instructions. She expressed understanding and agreement. Discharge Plan Departure Patient Disposition: Home Clinical Impression: Pyelonephritis Instructions: Kidney Infection Activity Restrictions/Additional Instructions: Start taking the new antibiotics as directed. Also use the nausea medicine as needed. Contact your primary doctor for a follow-up. Return to the emergency department for any new or worsening symptoms Prescriptions: New sulfamethoxazole-trimethoprim [Bactrim DS] 800-160 mg tablet 1 tab PO BID 14 Days Qty: 28 RF: 0 ondansetron 4 mg tablet,disintegrating 4 mg PO Q6H PRN (Reason: nausea and vomiting) Qty: 14 RF: 0 No Action triamcinolone acetonide 0.1 % cream See Rx Instructions TOP BID Qty: 15 RF: 0 nitrofurantoin monohyd/m-cryst [Macrobid] 100 mg capsule 100 mg PO Q12H 5 Days Qty: 10 RF: 0 Referrals: Juan Antonio Mack MD [Primary Care Provider] -
[2021-01-15] MEDS: ONDANSETRON 4 MG ODT PREPACK 1 BOTTLE MISC (18:28)
[2021-01-15] MEDS: TRIMETH/SULFA 160/800 (DS) TABLET 1 TAB PO (18:28)
== END 2021-01-15 18:36 | disposition home or self-care (01) ==
PROVIDERS: Emergency Medicine; Emergency Provider Emergency Medicine; PCP Family Medicine
DX: N12 Tubulo-interstitial nephritis, not specified as acute or chronic (principal); R11.0 Nausea
CPT/HCPCS: 36415; 80053; 83605; 84145; 85025; 96374; 99284; J1885

== ENCOUNTER → 2021-02-06 13:25 | Outpatient (CLI) | payer OTHER, SELFPAY | PROVIDERS: PCP Family Medicine; Referring Provider Nurse Practitioner Family; Visit Provider Nurse Practitioner Family | DX: R10.9 Unspecified abdominal pain (principal) | CPT/HCPCS: 87086 ==

== ENCOUNTER → 2021-02-24 18:21 | Outpatient (CLI) | payer OTHER, SELFPAY ==
[2021-02-24 18:45] LABS: COVID19 -Nasal RAPID Negative (Negative)
== END ==
PROVIDERS: PCP Family Medicine; Visit Provider Physician Assistant
DX: Z20.822 Contact with and (suspected) exposure to COVID-19 (principal)
CPT/HCPCS: 87635

== ENCOUNTER → 2021-05-03 10:07 | Outpatient (CLI) | payer OTHER, SELFPAY ==
[2021-05-03 10:54] LABS: Add Manual Diff / Slide Review NO; Basophils Absolute Auto 100 /uL (0-100); Eosinophils Absolute Auto 200 /uL (0-450); Eosinophils Percent Auto 2.8 % (2-4); Hematocrit 44.7 % (36-46); Hemoglobin 14.7 g/dL (12.0-16.0); Lymphocytes Absolute Auto 1900 /uL (1100-4500); Mean Corpuscular Hemoglobin 27.1 PG (26-34); Mean Corpuscular Volume 82.1 fL (80-100); Monocytes Absolute Auto 400 /uL (0-900); Monocytes Percent Auto 5.4 % (3-14); Neutrophils Absolute Auto 4600 /uL (1500-7000); Neutrophils Percent Auto 63.8 % (50-75); Platelet Count 335 X10^3/uL (150-400); Red Blood Cell Count 5.45 X10^6/uL (4.0-5.2); Red Cell Distribution Width 12.8 % (11.6-14.8); White Blood Cell Count 7.2 X10^3/uL (4.5-11.0)
[2021-05-03 11:26] LABS: HEMOLYSIS < 15 (0-50); Iron 75 ug/dL (37-170)
[2021-05-03 11:29] LABS: Alanine Aminotransferase 19 IU/L (<35); Albumin 4.4 g/dL (3.5-5.0); Albumin Globulin Ratio 1.5 (1.0-2.8); Alkaline Phosphatase 43 U/L (38-126); Aspartate Aminotransferase 24 IU/L (14-36); BUN Creatinine Ratio 20.6 (6-22); Bilirubin Total 0.4 mg/dL (0.2-1.3); Blood Urea Nitrogen 14 mg/dL (7-17); Calcium 9.6 mg/dL (8.4-10.2); Carbon Dioxide 30 mmol/L (22-32); Chloride 105 mmol/L (98-107); Estimated Glomerular Filt Rate > 60.0 mL/min (>60); Glucose 110 mg/dL (70-100); HEMOLYSIS < 15 (0-50); Potassium 4.2 mmol/L (3.4-5.1); Sodium 138 mmol/L (137-145); Total Protein 7.4 g/dL (6.3-8.2)
[2021-05-03 11:37] LABS: Percent Iron Saturation 19 % (15-50); Total Iron Binding Capacity 394 ug/dL (265-497); Transferrin 374 mg/dL (206-381)
[2021-05-03 11:57] LABS: Thyroid Stimulating Hormone 1.84 uIU/mL (0.47-4.68)
[2021-05-03 13:14] LABS: Ferritin 58 ng/mL (6-137)
== END ==
PROVIDERS: PCP Family Medicine; Referring Provider Physician Assistant; Visit Provider Physician Assistant
DX: N92.1 Excessive and frequent menstruation with irregular cycle (principal); R53.83 Other fatigue
CPT/HCPCS: 36415; 80053; 82728; 83540; 83550; 84443; 85025

== ENCOUNTER 2021-06-18 21:17 | Emergency (ER) | payer OTHER, SELFPAY ==
[2021-06-18] VITALS (7 sets, daily range): BP systolic 152–191; BP diastolic 72–104; PULSE 67–73; RESP 18; TEMP 36.9; O2SAT 99–100
--- NOTE | 2021-06-18 21:28 | ED_ITS ---
HPI - General Adult General Chief complaint: Upper Respiratory Symptoms Stated complaint: sick x7days, trouble breathing Time Seen by Provider: 06/18/21 21:18 Source: patient Mode of arrival: Ambulatory History of Present Illness HPI narrative: Patient is a 30-year-old female who is here for evaluation of approximately 1 week of not feeling well. Cough. Trouble breathing. She has tested herself for COVID multiple times and has been negative. She has been coughing. She has been coughing. Related Data Previous Rx's Medication Instructions Recorded triamcinolone acetonide 0.1 % See Rx Instructions TOP BID #15 08/25/19 topical cream gram azithromycin 250 mg tablet 250 mg PO DAILY 4 Days tab 06/18/21 azithromycin 250 mg tablet 250 mg PO DAILY 4 Days #4 tab 06/18/21 Allergies Allergy/AdvReac Type Severity Reaction Status Date / Time No Known Drug Allergies Allergy Verified 05/03/21 09:22 Review of Systems Constitutional Constitutional: Denies fever(s) Cardiovascular Cardiovascular: Denies chest pain and Reports dyspnea Respiratory Respiratory: Reports cough and Reports dyspnea Hematologic/Lymphatic On Anticoagulants: No Patient History Medical History Chicken pox (~1997) Depression (~2008) History of irregular menstrual cycles Menorrhagia with irregular cycle MRSA (methicillin resistant Staphylococcus aureus) (~2009) Surgical History (Updated 05/03/21 @ 10:01 by Michell Schwartz PA-C) History of tubal ligation Status post delivery (06/20/11) Status post delivery (01/20/14) Status post delivery (11/21/16) Family History Father Age: 66 Hypertension Social History marital status: household members: spouse and children Smoking Status: Never smoker alcohol intake: never substance use type: does not use Smoking Status: Never smoker Substance Use Type: does not use Exam Initial Vital Signs Initial Vital Signs: Vital Signs Blood Pressure 191/104 H 06/18/21 21:22 HENMT Head: normal to inspection and normocephalic Resp Effort & Inspection: normal respiratory effort Auscultation: clear to auscultation bilaterally Cardio Rate: regular rate Rhythm: regular rhythm Skin General: no rashes or lesions noted Neuro General: patient alert, patient awake and moves all extremities Course Orders Ordered: ED Orders 06/18/21 21:30 COVID19 -Nasal swab/Pre-Proc Stat 06/18/21 21:32 XR chest 1V Stat Discontinued Medications Azithromycin (Azithromycin 250 Mg Tablet) 500 mg PO NOW ONE Stop: 06/18/21 22:52 Last Admin: 06/18/21 22:55 Dose: 500 mg Documented by: MARTÍN Vital Signs Vital signs: Vital Signs - 8 hr 06/18/21 21:22 06/18/21 21:26 06/18/21 21:27 Temperature 98.5 F Pulse Rate 72 Respiratory Rate 18 Blood Pressure 191/104 H 152/72 H Pulse Oximetry 100 99 06/18/21 21:30 06/18/21 22:00 06/18/21 22:30 Temperature Pulse Rate 72 68 67 Respiratory Rate Blood Pressure Pulse Oximetry 99 99 99 06/18/21 22:59 Temperature Pulse Rate Respiratory Rate Blood Pressure 152/72 H Pulse Oximetry Medical Decision Making Lab Data Labs: Lab Results 06/18/21 Range/Units 21:30 SARS-CoV-2 (PCR) Negative (Negative) Imaging Data Chest x-ray: Radiologist's Impression: [address] [address] XRay Report Signed Patient: Thania Fonseca MR#: [id number] : 1990 Acct:[id number] Age/Sex: 30 / F Date of Service: 06/18/21 Loc: ED Accession Number: [id number] ?? Procedure: XR chest 1V Ordering Provider: John Carlisle D.O. PROCEDURE:? XR CHEST 1V ? INDICATIONS:? Cough and congestion ? TECHNIQUE:? One view of the chest was acquired.? ? COMPARISON:? [facility], , XR CHEST 2 VIEWS, 09/06/2017, 13:36. ? FINDINGS:? ? Surgical changes and devices:? None.? ? Lungs and pleura:? Small right infrahilar opacity could represent a mild or developing pneumonia.? No pleural effusion or pneumothorax.? ? Mediastinum:? Mediastinal contours appear normal.? Heart size is normal.? ? Bones and chest wall:? No suspicious bony lesions.? Overlying soft tissues appea r unremarkable.? ? IMPRESSION:? Small right infrahilar opacity could represent a mild or developing pneumonia.? ? ? Dictated by: Jaron Corona M.D. on 06/19/2021 at 0:08 ? ? Approved by: Jaron Corona M.D. on 06/19/2021 at 0:09? MDM Narrative Medical decision making narrative: Clear lung exam however chest x-ray does show signs of right-sided pneumonia. This does correspond with her symptoms. Will treat it with antibiotics. Is given a 1st dose here in the ER. Was given a prescription for the remainder of the course. She is given return precautions. She expressed understanding and agreement. Discharge Plan Departure Patient Disposition: Home Clinical Impression: Pneumonia Instructions: DI for Pneumonia -- Adult Activity Restrictions/Additional Instructions: You do need to take the antibiotics as directed. Your 1st dose was given here in the emergency department. A prescription for the remainder of the course was transmitted to [facility]. Please start taking it tomorrow as directed. Return to the emergency department for any new or worsening symptoms. Prescriptions: New azithromycin 250 mg tablet 250 mg PO DAILY 4 Days 0RF Rx Instructions: start on day 2 of therapy azithromycin 250 mg tablet 250 mg PO DAILY 4 Days Qty: 4 0RF No Action triamcinolone acetonide 0.1 % cream See Rx Instructions TOP BID Qty: 15 0RF Rx Instructions: 1 mg topically bid TOP BID Referrals: Juan Antonio Mack MD [Primary Care Provider] -
--- NOTE | 2021-06-18 21:31 | PC.NURSE ---
pt speaking in complete sentences, c/o productive cough with yellow-orange sputum, has been around son with strep throat but no other sick people,
--- NOTE | 2021-06-18 21:32 | DI.RAD.S_ITS ---
PROCEDURE: XR CHEST 1V INDICATIONS: Cough and congestion TECHNIQUE: One view of the chest was acquired. COMPARISON: [facility], CR, XR CHEST 2 VIEWS, 09/06/2017, 13:36. FINDINGS: Surgical changes and devices: None. Lungs and pleura: Small right infrahilar opacity could represent a mild or developing pneumonia. No pleural effusion or pneumothorax. Mediastinum: Mediastinal contours appear normal. Heart size is normal. Bones and chest wall: No suspicious bony lesions. Overlying soft tissues appear unremarkable. IMPRESSION: Small right infrahilar opacity could represent a mild or developing pneumonia. Dictated by: Jaron Corona M.D. on 06/19/2021 at 0:08 Approved by: Jaron Corona M.D. on 06/19/2021 at 0:09
[2021-06-18 21:47] LABS: COVID19 -Nasal RAPID Negative (Negative)
--- NOTE | 2021-06-18 22:45 | PC.NURSE ---
updated pt on plan of care
[2021-06-18] MEDS: AZITHROMYCIN 250 MG TABLET 500 MG PO (22:55)
== END 2021-06-18 23:00 | disposition home or self-care (01) ==
PROVIDERS: Emergency Provider Emergency Medicine; PCP Family Medicine
DX: J18.9 Pneumonia, unspecified organism (principal); Z20.822 Contact with and (suspected) exposure to COVID-19
CPT/HCPCS: 71045; 87635; 99283; C9803

== ENCOUNTER 2021-07-10 14:40 | Emergency (ER) | payer OTHER, SELFPAY ==
[2021-07-10 14:51] VITALS: BP 145/70; PULSE 68; RESP 17; TEMP 36.7; O2SAT 99; BMI 37.4
--- NOTE | 2021-07-10 14:55 | DI.RAD.S_ITS ---
PROCEDURE: XR FOOT LT MIN 3V INDICATIONS: fall TECHNIQUE: 3 views of the foot were acquired. COMPARISON: [facility], CR, XR ANKLE LT MIN 3V, 07/10/2021, 14:55. FINDINGS: Bones: No fractures or dislocations. No suspicious bony lesions. Small plantar calcaneal spur. Soft tissues: No tibiotalar joint effusion. Achilles tendon appears normal. IMPRESSION: No acute osseous abnormality. Dictated by: Reji Chance M.D. on 07/10/2021 at 15:58 Approved by: Reji Chance M.D. on 07/10/2021 at 15:59
--- NOTE | 2021-07-10 14:55 | DI.RAD.S_ITS ---
PROCEDURE: XR ANKLE LT MIN 3V INDICATIONS: fall TECHNIQUE: 3 views of the ankle were acquired. COMPARISON: [facility], CR, XR FOOT LT MIN 3V, 07/10/2021, 14:55. FINDINGS: Bones: No fractures or dislocations. Ankle mortise is normally aligned. No suspicious bony lesions. Small plantar calcaneal spur. Soft tissues: No tibiotalar joint effusion. Achilles tendon appears normal. IMPRESSION: No acute osseous abnormality. Dictated by: Reji Chance M.D. on 07/10/2021 at 15:57 Approved by: Reji Chance M.D. on 07/10/2021 at 15:58
--- NOTE | 2021-07-10 15:00 | ED_ITS ---
HPI - Extremity Injury (Lower) <NADINE Daniels - Last Filed: 07/10/21 16:31> General Chief Complaint: Extremity Injury, Lower Stated Complaint: Fell & twisted left ankle. heard 3 pops Time Seen by Provider: 07/10/21 15:00 Source: patient Mode of arrival: Wheelchair History of Present Illness HPI Narrative: This 30-year-old female with history of tubal ligation left ankle fracture presents to the emergency department complaining of left ankle pain and swelling after she accidentally stepped on a toy car this morning while cleaning house and fell down injuring her left ankle. She denies taking any medication prior to arrival. Patient states that she is able to bear weight although it is painful, she has tenderness along the outer aspect of her left ankle. She denies any sensation changes, she denies any range of motion abnormality. Related Data Previous Rx's Medication Instructions Recorded triamcinolone acetonide 0.1 % See Rx Instructions TOP BID #15 08/25/19 topical cream gram diclofenac sodium 1 % topical gel 4 g TOPICAL QID #100 g 07/10/21 (Voltaren Arthritis Pain) tramadol 50 mg tablet 50 mg PO DAILY #10 tab 07/10/21 Allergies Allergy/AdvReac Type Severity Reaction Status Date / Time No Known Drug Allergies Allergy Verified 07/10/21 14:54 Review of Systems <NADINE Daniels - Last Filed: 07/10/21 16:31> Review of Systems Narrative: General: denies fever, chills Head/Neck: denies headache, neck pain Eyes: denies visual changes, eye pain Cardio: denies chest pain, palpitations Respiratory: denies shortness of breath, cough GI: denies abdominal pain, nausea, vomiting, or diarrhea : denies dysuria, hematuria MSK: Endorses left ankle pain, denies any muscle weakness or sensation changes Skin: denies rash, itching, or open wound Neuro: denies numbness, tingling Patient History <NADINE Daniels - Last Filed: 07/10/21 16:31> Medical History Chicken pox (~1997) Depression (~2008) History of irregular menstrual cycles Menorrhagia with irregular cycle MRSA (methicillin resistant Staphylococcus aureus) (~2009) Surgical History History of tubal ligation Status post delivery (06/20/11) Status post delivery (01/20/14) Status post delivery (11/21/16) Family History Father Age: 66 Hypertension Social History marital status: household members: spouse and children Smoking Status: Never smoker alcohol intake: never substance use type: does not use Smoking Status: Never smoker Substance Use Type: does not use Exam <NADINE Daniels - Last Filed: 07/10/21 16:31> Narrative Exam Narrative: Independently reviewed vitals signs and nursing notes. General: Awake, alert, nontoxic, no cardiorespiratory distress Head/Neck: Atraumatic, neck full range of motion Eyes: EOMI, conjunctiva normal Nose: nares patent, no rhinorrhea Mouth/Throat: moist mucus membranes, posterior pharynx normal, no oral lesions Cardio: Regular rate and rhythm, no peripheral edema Respiratory: respirations unlabored without wheezing, stridor, or rales. No retractions. GI: Abdomen soft, nontender MSK: Moves all extremities, neurovascularly intact, left ankle with mild edema surrounding the lateral malleolus, no tenderness to medial malleolus with palpation, tenderness to lateral with palpation, tenderness over ATFL and CFL, no pain over proximal 1st or 5th metatarsal, flexion and extension intact, cap refill less than 2 seconds, PT/DP pulses 2+, no open wound or discoloration. Eversion and inversion also intact without deficit. It is painful to bear weight, patient was fitted in a walking boot, given crutches, instructed to stay no weight-bearing for approximately 1 week unless it is improving. Skin: Normal capillary refill, no rash Neuro: Normal speech and cognition, normal gait Initial Vital Signs Initial Vital Signs: Vital Signs Temperature 98.1 F 07/10/21 14:51 Pulse Rate 68 07/10/21 14:51 Respiratory Rate 17 07/10/21 14:51 Blood Pressure 145/70 H 07/10/21 14:51 Pulse Oximetry 99 07/10/21 14:51 <John Carlisle DO - Last Filed: 07/10/21 17:01> Initial Vital Signs Initial Vital Signs: Vital Signs Temperature 98.1 F 07/10/21 14:51 Pulse Rate 68 07/10/21 14:51 Respiratory Rate 17 07/10/21 14:51 Blood Pressure 145/70 H 07/10/21 14:51 Pulse Oximetry 99 07/10/21 14:51 Procedures <NADINE Daniels - Last Filed: 07/10/21 16:31> Orthopedic Splinting/Casting Injury #1: Lower Extremity Injury Location: ankle Lower Extremity Immobilizer: boot orthosis Other Orthopedic Equipment: crutches Post splinting neuro exam: intact Post splinting vascular exam: intact Placed by: Nursing Course <NADINE Daniels - Last Filed: 07/10/21 16:31> Orders Ordered: ED Orders 07/10/21 14:55 XR ankle LT min 3V Stat XR foot LT min 3V Stat Discontinued Medications Ketorolac Tromethamine (Ketorolac 30 Mg/Ml Vial) 15 mg IM NOW ONE Stop: 07/10/21 16:05 Last Admin: 07/10/21 16:15 Dose: 15 mg Documented by: ELLIOT Vital Signs Vital signs: Vital Signs - 8 hr 07/10/21 14:51 07/10/21 16:22 Temperature 98.1 F Pulse Rate 68 70 Respiratory Rate 17 Blood Pressure 145/70 H 142/63 H Pulse Oximetry 99 97 <DO Kayla Boyd Last Filed: 07/10/21 17:01> Orders Ordered: ED Orders 07/10/21 14:55 XR ankle LT min 3V Stat XR foot LT min 3V Stat Discontinued Medications Ketorolac Tromethamine (Ketorolac 30 Mg/Ml Vial) 15 mg IM NOW ONE Stop: 07/10/21 16:05 Last Admin: 07/10/21 16:15 Dose: 15 mg Documented by: ELLIOT Vital Signs Vital signs: Vital Signs - 8 hr 07/10/21 14:51 07/10/21 16:22 Temperature 98.1 F Pulse Rate 68 70 Respiratory Rate 17 Blood Pressure 145/70 H 142/63 H Pulse Oximetry 99 97 MDM - Extremity Injury (Lower) <Dorcas Etienne, [facility] - Last Filed: 07/10/21 16:31> Imaging Data Extremity x-ray #1: Radiologist's Impression: PROCEDURE:? XR FOOT LT MIN 3V ? INDICATIONS:? fall ? TECHNIQUE:? 3 views of the foot were acquired.? ? COMPARISON:? [facility], , XR ANKLE LT MIN 3V, 07/10/2021, 14:55. ? FINDINGS:? ? Bones:? No fractures or dislocations.? No suspicious bony lesions.? Small plantar calcaneal spur.? ? Soft tissues:? No tibiotalar joint effusion.? Achilles tendon appears normal.? ? ? IMPRESSION:? No acute osseous abnormality. ? ? Dictated by: Reji Chance M.D. on 07/10/2021 at 15:58 ? ? Approved by: Reji Chance M.D. on 07/10/2021 at 15:59 ? Extremity x-ray #2: Radiologist's Impression: PROCEDURE:? XR ANKLE LT MIN 3V ? INDICATIONS:? fall ? TECHNIQUE:? 3 views of the ankle were acquired.? ? COMPARISON:? [facility], , XR FOOT LT MIN 3V, 07/10/2021, 14:55. ? FINDINGS:? ? Bones:? No fractures or dislocations.? Ankle mortise is normally aligned.? No suspicious bony lesions.? Small plantar calcaneal spur.? ? Soft tissues:? No tibiotalar joint effusion.? Achilles tendon appears normal.? ? ? IMPRESSION:? No acute osseous abnormality. ? Dictated by: Reji Chance M.D. on 07/10/2021 at 15:57 ? ? Approved by: Reji Chance M.D. on 07/10/2021 at 15:58 ? MDM Narrative Medical decision making narrative: 30 year old female presents to the emergency department complaining of left ankle pain after she stepped on a toy car this morning while cleaning house and rolled her left ankle inward. Patient states that she has at previous fracture to this left ankle in the past. X-ray of her left ankle and left foot today are negative for acute fracture or osseous abnormality, there is no open wound, she has tenderness over her ATFL and CFL ligaments with tenderness over her lateral malleolus. She was fitted in a walking boot, instructed to not bear weight until her pain improves, and to follow-up with orthopedics. No deficits on exam, no weakness, no sensation changes. Patient tolerated walking boot with crutches well, she will follow-up with her primary care provider for advanced imaging if necessary or physical therapy if necessary. She understands to return to the emergency department for any new or worsening changes. Patient is appropriate and amenable to discharge home. Vital signs are stable on repeat examination is unremarkable. Patient has been informed of results. Patient has been given strict return to ER precautions for any new or worsening symptoms. Patient understands to follow up closely with outpatient providers as instructed. Patient understands plan and agrees to discharge home. All questions and concerns answered at this time. Discharge Plan Departure Patient Disposition: Home Clinical Impression: Ankle sprain Qualifiers: Encounter type: initial encounter Involved ligament of ankle: unspecified ligament Laterality: left Qualified Code(s): S93.402A - Sprain of unspecified ligament of left ankle, initial encounter Instructions: Ankle Sprain Activity Restrictions/Additional Instructions: *You have been diagnosed with a left ankle sprain without fracture. Your foot x-ray was negative for fracture as well. Please elevate, ice, stay off of your left foot as much as possible, use this boot and crutches for the next week until it starts to feel better than you can gradually start bearing weight as tolerated. Please take ibuprofen with food and water as needed for your pain, you may take Tylenol in addition to this safely. Please follow-up with or thopedics if this does not start to improve after 1-2 weeks. I hope you feel better soon, please return to the emergency department for any new or worsening symptoms. I have given use of breakthrough pain medicine called tramadol, you may take this in addition to Tylenol and ibuprofen for breakthrough pain, please do not drive with it. I have given you some topical Voltaren gel which is an anti-inflammatory, this may be helpful for the swelling in addition to icing and elevating. *What to do: *Please continue to take your regular medications as directed. [x ] New medication prescriptions sent to your pharmacy: [ [facility]] [ ] New medication written as a paper prescription [ ] No new medications given *Please follow up with your primary care provider in 2-3 days, call for an appointment. Let them know you were seen in the Emergency Department and that we asked that you be seen for follow-up. We will electronically transmit a record of today's note if your PCP is in our system *If you do not have a primary care provider please contact [phone] to establish care with one of the [facility] primary care providers. *Return to Emergency Department if you should have any new, worsening or concerning symptoms, such as [fever greater than 101F, chills, worsening pain, persistent vomiting or other bothersome symptoms] Prescriptions: New diclofenac sodium [Voltaren Arthritis Pain] 1 % gel 4 g topical QID Qty: 100 0RF Rx Instructions: apply to single knee, ankle, foot; for foot includes sole/toes/top of foot tramadol 50 mg tablet 50 mg PO DAILY Qty: 10 0RF No Action triamcinolone acetonide 0.1 % cream See Rx Instructions TOP BID Qty: 15 0RF Rx Instructions: 1 mg topically bid TOP BID Referrals: [facility] [Provider Group] Juan Antonio Mack MD [Primary Care Provider] - <John Carlisle, - Last Filed: 07/10/21 17:01> [facility]: Dr Carlisle Co-Sign Statement: I was available for consultation during this patient's emergency department visit. This chart is signed by myself for administrative purposes only. I did not have direct contact with this patient during this visit. They were seen independently by the APC.
[2021-07-10] MEDS: KETOROLAC 30 MG/ML VIAL 15 MG IM (16:15)
[2021-07-10 16:22] VITALS: BP 142/63; PULSE 70; O2SAT 97
== END 2021-07-10 16:25 | disposition home or self-care (01) ==
PROVIDERS: Emergency Provider Nurse Practitioner Critical Care Medicine; PCP Family Medicine
DX: S93.402A Sprain of unspecified ligament of left ankle, initial encounter (principal); X50.1XXA Overexertion from prolonged static or awkward postures, initial encounter
CPT/HCPCS: 73610; 73630; 96372; 99283; J1885

== ENCOUNTER → 2021-07-26 13:54 | Outpatient (CLI) | payer OTHER, SELFPAY ==
--- NOTE | 2021-07-26 13:55 | DI.US.S_ITS ---
PROCEDURE: US PELVIC COMPLETE INDICATIONS: 2 MENSES/MONTH x 4 MONTHS, HEAVY BLEEDING, CRAMPING TECHNIQUE: Real-time scanning was performed of the pelvic organs, with image documentation. Additional endovaginal scanning was necessary due to incomplete visualization of the adnexal and endometrial structures by transabdominal scanning. COMPARISON: [facility], , US PELVIC COMPLETE, 01/02/2019, 15:35. FINDINGS: Uterus: Uterus is normal in size at 8.8 x 3.8 x 5.5 cm. The myometrium is mildly heterogeneous. The endometrial stripe is not well seen, yet it appears to measure 6-7 mm. Ovaries: The right ovary measures 2.6 x 1.7 x 2.3 cm. The left ovary measures 3.7 x 2.7 x 2.9 cm. The left ovary demonstrates likely resolving hemorrhagic cyst. The ovaries have a normal sonographic appearance. No adnexal masses are seen. Other: No pathologic free abdominal or pelvic fluid. IMPRESSION: No imaging explanation is found for this patient's presenting symptoms. We strive to produce accurate, complete, and clear reports of imaging services. To assist us in improving patient care, this report was composed using standard report templates and voice recognition software. Therefore, it may contain abnormal punctuation, insertions and/or omissions. Occasional wrong-word or sound-alike substitutions may occur. Though we review the report and make efforts to correct it, we do recommend that the report be read carefully in proper context to recognize any text inaccuracies. Dictated by: Jamel Ramirez M.D. on 07/26/2021 at 15:21 Approved by: Jamel Ramirez M.D. on 07/26/2021 at 15:23
== END ==
PROVIDERS: PCP Family Medicine; Referring Provider Physician Assistant; Visit Provider Physician Assistant
DX: N92.1 Excessive and frequent menstruation with irregular cycle (principal); Z98.51 Tubal ligation status
CPT/HCPCS: 76830; 76856

== ENCOUNTER → 2021-08-09 09:58 | Outpatient (CLI) | payer OTHER, SELFPAY ==
[2021-08-09 13:53] LABS: COVID19 -Nasal RAPID Negative (Negative)
== END ==
PROVIDERS: PCP Family Medicine; Visit Provider Family Medicine Sleep Medicine
DX: Z20.822 Contact with and (suspected) exposure to COVID-19 (principal)
CPT/HCPCS: 87635; C9803

== ENCOUNTER 2021-08-10 08:56 | Day surgery (SDC) | payer OTHER, SELFPAY ==
[2021-08-10 09:05] VITALS: BMI 38.5
[2021-08-10 09:32] VITALS: BP 119/72; PULSE 64; RESP 16; TEMP 36.2; O2SAT 98
[2021-08-10] MEDS: LACTATED RINGERS 1,000 ML 42 ML IV ×2 (09:50→12:30)
[2021-08-10 09:55] VITALS: BMI 38.5
--- NOTE | 2021-08-10 11:40 | PM.PREOP ---
Pre-operative Note Interval Note History & Physical reviewed/Exam performed by Physician: Yes Changes to H&P: No
--- NOTE | 2021-08-10 11:40 | PM.HP.1 ---
History of Present Illness History of Present Illness Date Patient Seen: 08/10/21 Time Patient Seen: 11:40 Chief complaint: Chronic tonsillitis Narrative: 30-year-old female with chronic tonsillitis throat pain and tonsillar hypertrophy with upper airway obstruction, last seen in clinic 06/20/2021 presents for tonsillectomy and possible adenoidectomy due to failure of medical therapy. No interval health changes although her throat is again sore today. Patient History Medical History section wound complication Chicken pox (~1997) Depression (~2008) History of irregular menstrual cycles Menorrhagia with irregular cycle Migraine MRSA (methicillin resistant Staphylococcus aureus) (~2009) Pneumonia involving right lung Surgical History History of dilatation and curettage History of tubal ligation Status post delivery (06/20/11) Status post delivery (01/20/14) Status post delivery (11/21/16) Family & Social History Family History Father Age: 67 Hypertension Social History: household members spouse,children Tobacco & Substance use: Tobacco type cigarettes Smoking Status Former smoker alcohol intake never alcohol intake frequency holiday/special occasion Substance Use Type does not use Meds Home Medications and Allergies Allergies Allergy/AdvReac Type Severity Reaction Status Date / Time No Known Drug Allergies Allergy Verified 08/10/21 08:53 Review of Systems Review of Systems Narrative: Negative except as listed in the HPI Exam Vital Signs (past 8 hours): - 08/10/21 09:32 Temperature 97.2 F L Pulse Rate 64 Respiratory Rate 16 Blood Pressure 119/72 Pulse Oximetry 98 Oxygen Delivery Method Room Air Narrative Exam Narrative: Well-developed overweight female in no acute distress heart regular rate and rhythm without murmur, lungs clear to auscultation bilaterally Assessment & Plan Assessment & Plan narrative: Assessment: Chronic tonsillitis, throat pain, tonsillar hypertrophy, upper airway obstruction Plan: Following discussion of the material risks benefits complications and alternatives, she elected to proceed with tonsillectomy and possible adenoidectomy as an outpatient. Time Spent With Patient Critical Care time: I spent a total of [] minutes of critical care time on this patient's care today; this time is exclusive of procedural time.
--- NOTE | 2021-08-10 11:42 | PM.OP.1 ---
Operative Date/Time/Diagnoses Date of procedure: 08/10/21 Time of procedure: 12:57 Pre-op diagnosis: Chronic tonsillitis, throat pain, tonsillar hypertrophy, upper airway obstruction Post-op diagnosis: same (mild adenoid hypertrophy) Procedure & Clinicians Procedure: Tonsillectomy and adenoidectomy Same procedure as scheduled: Yes Indications: 30-year-old female with above diagnoses incompletely managed with medical therapy presents for the above procedures. Following discussion of the material risks benefits complications and alternatives, she elected to proceed. Surgeon: Sundeep Freire Click Yes if Unassisted: Yes Anesthesia Type: General and Local Operative Notes Findings: Intact palate, single uvula, 2 to 3+ tonsils, 2+ adenoids, difficult exposure due to small mouth, large tongue Estimated Blood Loss (mL): 10 Procedure in detail: Following identification and confirmation of consent the patient was brought to the operating room suite and placed in the supine position. General endotracheal anesthesia was administered. A head wrap, shoulder roll, and mouth gag were placed and a red rubber catheter was inserted through the nostril and out the mouth to retract the soft palate. Partially obstructive adenoid tissue was ablated with suction electrocautery on a setting of 40, without injury to the eustachian tube orifices or choana. Due to difficult exposure from a small mouth and large tongue, I needed to expose a single tonsil at a time with the gag. The left tonsil was retracted medially and suction electrocautery on a setting of 30 was used to dissect the tonsil in a subcapsular plane, followed by hemostasis with the same. This process was repeated on the right side with identical findings. The tonsillar fossae were superficially infiltrated bilaterally with a 1:1 mixture of 1% lidocaine 1 100,000 epinephrine and 0.5% Marcaine. Mouth gag and rubber catheter were removed and the patient was extubated in the operating room and taken to the recovery room in stable condition without known complication. Complications: none Post-operative Condition: stable Disposition: same day surgery Plan for aftercare: Push fluids, alternate Tylenol and Advil every 3 hours for baseline pain control, oxycodone for breakthrough pain. Soft diet 2 full weeks, no heavy lifting or straining 2 weeks.
[2021-08-10] MEDS: BUPIVACAINE 0.5% (PF) VIAL 30 ML INJ (12:33)
[2021-08-10] MEDS: LIDOCAINE 1% W/EPI 20 ML INJ (12:35)
--- NOTE | 2021-08-10 12:37 | SUR.OPER ---
Supine on padded OR bed, head on gel roll, arms secured on padded arm boards at <90 degrees abduction, legs uncrossed, safety belt at thigh, gel pad under heels.
[2021-08-10 13:01] VITALS: BP 123/69; PULSE 66; RESP 12; TEMP 36; O2SAT 98
[2021-08-10 13:05] VITALS: BP 131/74; PULSE 67; RESP 12; O2SAT 98
--- NOTE | 2021-08-10 13:10 | SUR.PHASEI ---
Patient sipping on beverage without difficulty. Swallowing without issue. Still denies pain. No bleeding noted. Suction at bedside PRN.
[2021-08-10] MEDS: ONDANSETRON 4 MG/2 ML INJ IV (13:12)
[2021-08-10] MEDS: OXYCODONE IR 5 MG TABLET PO (13:14)
[2021-08-10 13:17] VITALS: BP 137/71; PULSE 60; RESP 12; O2SAT 100
[2021-08-10 13:20] VITALS: BP 149/76; PULSE 56; RESP 11; TEMP 36.2; O2SAT 99
== END 2021-08-10 14:02 | disposition home or self-care (01) ==
PROVIDERS: PCP Family Medicine; Referring Provider Otolaryngology; Visit Provider Otolaryngology
PROC: (CPT 42821; principal; 2021-08-10 10:30)
DX: J35.01 Chronic tonsillitis (principal); J98.8 Other specified respiratory disorders
CPT/HCPCS: 42821; 81025; J1100; J2405; J2704; J3010

== ENCOUNTER 2022-01-08 11:59 | Emergency (ER) | payer OTHER, SELFPAY ==
[2022-01-08] VITALS (16 sets, daily range): BP systolic 121–180; BP diastolic 56–84; PULSE 51–174; RESP 15–21; TEMP 37.3; O2SAT 97–100; BMI 37.4
--- NOTE | 2022-01-08 12:31 | DI.RAD.S_ITS ---
PROCEDURE: XR CHEST 1V INDICATIONS: chest pain TECHNIQUE: One view of the chest was acquired. COMPARISON: [facility], CR, XR CHEST 1V, 06/18/2021, 21:46. FINDINGS: Surgical changes and devices: None. Lungs and pleura: Lungs are clear. No pleural effusions or pneumothorax. Mediastinum: Mediastinal contours appear normal. Heart size is normal. Bones and chest wall: No suspicious bony lesions. Overlying soft tissues appear unremarkable. IMPRESSION: No acute cardiopulmonary findings. Dictated by: Delmy Abernathy M.D. on 01/08/2022 at 13:03 Approved by: Delmy Abernathy M.D. on 01/08/2022 at 13:04
[2022-01-08 12:59] LABS: Add Manual Diff / Slide Review NO; Basophils Absolute Auto 100 /uL (0-100); Basophils Percent Auto 0.9 % (0-2); Eosinophils Absolute Auto 200 /uL (0-450); Eosinophils Percent Auto 2.3 % (2-4); Hemoglobin 14.2 g/dL (12.0-16.0); Lymphocytes Absolute Auto 1800 /uL (1100-4500); Lymphocytes Percent Auto 20.1 % (25-40); Mean Corpuscular HGB Conc 33.9 % (30-36); Mean Corpuscular Volume 82.5 fL (80-100); Monocytes Absolute Auto 600 /uL (0-900); Neutrophils Absolute Auto 6100 /uL (1500-7000); Neutrophils Percent Auto 69.7 % (50-75); Platelet Count 330 X10^3/uL (150-400); Red Blood Cell Count 5.09 X10^6/uL (4.0-5.2); Red Cell Distribution Width 12.2 % (11.6-14.8); White Blood Cell Count 8.8 X10^3/uL (4.5-11.0)
[2022-01-08 13:02] LABS: Alanine Aminotransferase 36 IU/L (<35); Albumin 4.3 g/dL (3.5-5.0); Albumin Globulin Ratio 1.2 (1.0-2.8); Alkaline Phosphatase 63 U/L (38-126); Aspartate Aminotransferase 29 IU/L (14-36); BUN Creatinine Ratio 11.8 (6-22); Bilirubin Total 0.5 mg/dL (0.2-1.3); Blood Urea Nitrogen 9 mg/dL (7-17); Calcium 8.9 mg/dL (8.4-10.2); Carbon Dioxide 29 mmol/L (22-32); Chloride 103 mmol/L (98-107); Creatine Kinase 131 U/L (30-135); Estimated Glomerular Filt Rate > 60 mL/min (>60); Globulin 3.6 g/dL (1.7-4.1); Glucose 112 mg/dL (70-100); HEMOLYSIS < 15 (0-50); Lipase 43 U/L (23-300); Magnesium 2.2 mg/dL (1.6-2.3); Potassium 3.7 mmol/L (3.4-5.1); Sodium 140 mmol/L (137-145); Total Protein 7.9 g/dL (6.3-8.2)
[2022-01-08 13:14] LABS: Troponin I < 0.012 ng/mL (0.01-0.034)
[2022-01-08 13:17] LABS: CKMB % Relative Index 0.3 % (1.5-5.0); Creatine Kinase MB 0.37 ng/mL (<2.37)
--- NOTE | 2022-01-08 14:23 | ED_ITS ---
HPI - Chest Pain <Carri Trujillo PA-C - Last Filed: 01/08/22 16:58> General Chief Complaint: Chest Pain Stated Complaint: Chest pain, Palpitations Time Seen by Provider: 01/08/22 13:56 Source: patient Mode of arrival: Ambulatory Limitations: no limitations History of Present Illness HPI narrative: 31-year-old female with past medical history of headaches, anxiety presents to the ED with 2 days of substernal chest pain and 1 week of frontal headache. Patient states that her chest pain started last night, along with some mild nausea. Patient describes the chest pain as dull and a tightness, substernal, sometimes radiating to the right shoulder. Patient also endorses palpitations, which she describes as a rapid pounding of her heart intermittently. Patient endorses a history of GERD. Patient denies fever, chills, rhinorrhea, sore throat, cough, shortness of breath, vomiting, abdominal pain, dysuria. Patient endorses a history of headaches, which are usually all over headaches. This time around, her headache is more frontal. Patient states the headache has been going on for a week, not responsive to Tylenol and ibuprofen. Patient also trialed some [id number] allergy medication with no relief. Patient denies other neurological symptoms such as numbness, tingling, weakness, vision changes, syncope, dizziness. Related Data Allergies Allergy/AdvReac Type Severity Reaction Status Date / Time No Known Drug Allergies Allergy Verified 08/10/21 08:53 Review of Systems <Carri Trujillo PA-C - Last Filed: 01/08/22 16:58> Review of Systems ROS Unobtainable: All systems reviewed & are unremarkable except as noted in HPI and below Constitutional Constitutional: Denies chills, Denies fatigue, Denies fever(s), Denies frequent falls, Reports headache(s), Denies lethargy and Denies weakness Eyes Eyes: Denies change in vision, Denies eye discharge, Denies irritation and Denies loss of vision ENT Ears, Nose, Mouth, and Throat: Denies change in voice, Denies dizziness, Reports headache(s), Denies neck pain, Denies sore throat and Denies throat swelling Cardiovascular Cardiovascular: Reports chest pain, Denies lightheadedness, Reports palpitations, Denies dyspnea, Denies dyspnea on exertion and Denies orthopnea Respiratory Respiratory: Denies cough, Denies dyspnea, Denies dyspnea on exertion and Denies wheezing Gastrointestinal Gastrointestinal: Denies abdominal pain, Denies change in bowel habits, Denies diarrhea, Reports nausea and Denies vomiting Genitourinary Genitourinary: Denies hematuria, Denies flank pain, Denies urinary incontinence and Denies urinary urgency Musculoskeletal Musculoskeletal: Denies back pain, Denies muscle weakness, Denies neck pain, Denies numbness and Denies tingling Integumentary/Breasts Skin/Breast: Denies pruritus, Denies erythema, Denies rash and Denies wounds Neurologic Neurologic: Denies behavioral changes, Denies confusion, Denies dizziness, Denies frequent falls, Reports headache(s), Denies loss of vision, Denies numbness, Denies tingling and Denies weakness Psychiatric Psychiatric: Denies anxiety, Denies behavioral changes, Denies confusion, Denies depression, Denies homicidal ideation and Denies suicidal ideation Endocrine Endocrine: Denies fatigue, Denies flushing and Reports palpitations Hematologic/Lymphatic Hematologic/Lymphatic: Denies easy bruising Allergic/Immunologic Allergic/Immunologic: Denies urticaria, Denies throat swelling and Denies w heezing Patient History <Carri Trujillo PA-C - Last Filed: 01/08/22 16:58> Medical History section wound complication Chicken pox (~1997) Depression (~2008) History of irregular menstrual cycles Menorrhagia with irregular cycle Migraine MRSA (methicillin resistant Staphylococcus aureus) (~2009) Pneumonia involving right lung Surgical History History of dilatation and curettage History of tubal ligation Status post delivery (06/20/11) Status post delivery (01/20/14) Status post delivery (11/21/16) Family History Father Age: 67 Hypertension Social History marital status: household members: spouse and children Smoking Status: Former smoker alcohol intake: never substance use type: does not use Smoking Status: Former smoker alcohol intake frequency: holidays/special occasions only Substance Use Type: does not use Exam <Carri Trujillo PA-C - Last Filed: 01/08/22 16:58> Narrative Exam Narrative: Const General:?cooperative, healthy appearing and comfortable [facility] Head:?normal to inspection Ears:?hearing grossly normal bilaterally Nose:?external nose normal Face and sinus:?normal facial exam and sinuses nontender Mouth:?oral mucosae normal Throat:?posterior oropharynx normal Eyes General:?appearance normal, both eyes and all related structures Neck Neck:?normal visual inspection and no lymphadenopathy noted Resp Effort & Inspection:?normal respiratory effort Auscultation:?clear to auscultation bilaterally Cardio Rate:?regular rate Rhythm:?regular rhythm Neuro General:?patient alert, patient awake and patient oriented x3; PERRLA; CN 1 through 12 intact bilaterally; gait normal; negative pronator drift; negative [id number] Initial Vital Signs Initial Vital Signs: Vital Signs Temperature 99.2 F 01/08/22 12:24 Pulse Rate 52 L 01/08/22 12:24 Respiratory Rate 18 01/08/22 12:24 Blood Pressure 161/68 H 01/08/22 12:24 Pulse Oximetry 97 01/08/22 12:24 Oxygen Delivery Method 01/08/22 12:24 <Jennifer Santos DO - Last Filed: 01/09/22 10:02> Initial Vital Signs Initial Vital Signs: Vital Signs Temperature 99.2 F 01/08/22 12:24 Pulse Rate 52 L 01/08/22 12:24 Respiratory Rate 18 01/08/22 12:24 Blood Pressure 161/68 H 01/08/22 12:24 Pulse Oximetry 97 01/08/22 12:24 Oxygen Delivery Method 01/08/22 12:24 Course <Carri Trujillo PA-C - Last Filed: 01/08/22 16:58> Orders Ordered: Discontinued Medications Acetaminophen (Acetaminophen 325 Mg Tablet) 975 mg PO NOW ONE Stop: 01/08/22 14:49 Last Admin: 01/08/22 15:13 Dose: 975 mg Documented By: BRANDAN Romero Hydrox/Mg Hydrox/Simethicone 20 ml/ Lidocaine HCl 15 ml 0 ml PO NOW ONE Stop: 01/08/22 14:50 Last Admin: 01/08/22 15:17 Dose: 35 ml Documented By: BRANDAN Diphenhydramine HCl (Diphenhydramine 50 Mg/Ml Vial) 50 mg IV NOW ONE Stop: 01/08/22 14:49 Last Admin: 01/08/22 15:16 Dose: 50 mg Documented By: BRANDAN Famotidine (Famotidine 20 Mg/2 Ml Vial) 20 mg IV NOW DANIEL Last Admin: 01/08/22 15:16 Dose: 20 mg Documented By: BRANDAN Sodium Chloride (Normal Saline 0.9%) 1,000 mls @ 1,000 mls/hr IV BOLUS ONE Stop: 01/08/22 15:47 Last Infusion: 01/08/22 16:50 Dose: 0 mls/hr Documented By: Admin: 01/08/22 15:11 Dose: 1,000 mls/hr Documented By: BRANDAN Ketorolac Tromethamine (Ketorolac 30 Mg/Ml Vial) 15 mg IV NOW ONE Stop: 01/08/22 14:49 Last Admin: 01/08/22 15:14 Dose: 15 mg Documented By: BRANDAN Metoclopramide HCl (Metoclopramide 10 Mg/2 Ml Inj) 10 mg IV NOW ONE Stop: 01/08/22 14:49 Last Admin: 01/08/22 15:21 Dose: 10 mg Documented By: BRANDAN Vital Signs Vital signs: Vital Signs - 8 hr 01/08/22 12:24 01/08/22 14:15 01/08/22 15:35 Temperature 99.2 F Pulse Rate 52 L 51 L 174 H Respiratory Rate 18 18 Blood Pressure 161/68 H 157/74 H 180/81 H Pulse Oximetry 97 Oxygen Delivery Method Room Air 01/08/22 15:30 01/08/22 14:45 01/08/22 15:00 Temperature Pulse Rate 52 L 54 L 51 L Respiratory Rate 18 Blood Pressure 145/70 H Pulse Oximetry 98 99 99 Oxygen Delivery Method Room Air Room Air Room Air 01/08/22 15:15 01/08/22 15:30 01/08/22 15:45 Temperature Pulse Rate 60 56 L 120 H Respiratory Rate 18 Blood Pressure 146/77 H 147/84 H 167/77 H Pulse Oximetry 99 99 100 Oxygen Delivery Method Room Air Room Air Room Air 01/08/22 16:00 01/08/22 15:34 01/08/22 15:37 Temperature Pulse Rate 77 144 H 110 H Respiratory Rate Blood Pressure 153/60 H Pulse Oximetry 98 Oxygen Delivery Method Room Air 01/08/22 15:38 01/08/22 16:08 01/08/22 16:10 Temperature Pulse Rate 104 H 67 Respiratory Rate 18 Blood Pressure 135/61 Pulse Oximetry 100 Oxygen Delivery Method 01/08/22 16:10 01/08/22 16:15 01/08/22 16:15 Temperature Pulse Rate 70 65 Respiratory Rate 15 17 Blood Pressure 121/56 L Pulse Oximetry 100 99 Oxygen Delivery Method 01/08/22 16:30 Temperature Pulse Rate 66 Respiratory Rate 21 Blood Pressure Pulse Oximetry 99 Oxygen Delivery Method <Jennifer Santos, DO - Last Filed: 01/09/22 10:02> Orders Ordered: Discontinued Medications Acetaminophen (Acetaminophen 325 Mg Tablet) 975 mg PO NOW ONE Stop: 01/08/22 14:49 Last Admin: 01/08/22 15:13 Dose: 975 mg Documented By: BRANDAN Romero Hydrox/Mg Hydrox/Simethicone 20 ml/ Lidocaine HCl 15 ml 0 ml PO NOW ONE Stop: 01/08/22 14:50 Last Admin: 01/08/22 15:17 Dose: 35 ml Documented By: BRANDAN Diphenhydramine HCl (Diphenhydramine 50 Mg/Ml Vial) 50 mg IV NOW ONE Stop: 01/08/22 14:49 Last Admin: 01/08/22 15:16 Dose: 50 mg Documented By: BRANDAN Famotidine (Famotidine 20 Mg/2 Ml Vial) 20 mg IV NOW DANIEL Last Admin: 01/08/22 15:16 Dose: 20 mg Documented By: BRANDAN Sodium Chloride (Normal Saline 0.9%) 1,000 mls @ 1,000 mls/hr IV BOLUS ONE Stop: 01/08/22 15:47 Last Infusion: 01/08/22 16:50 Dose: 0 mls/hr Documented By: Admin: 01/08/22 15:11 Dose: 1,000 mls/hr Documented By: BRANDAN Ketorolac Tromethamine (Ketorolac 30 Mg/Ml Vial) 15 mg IV NOW ONE Stop: 01/08/22 14:49 Last Admin: 01/08/22 15:14 Dose: 15 mg Documented By: BRANDAN Metoclopramide HCl (Metoclopramide 10 Mg/2 Ml Inj) 10 mg IV NOW ONE Stop: 01/08/22 14:49 Last Admin: 01/08/22 15:21 Dose: 10 mg Documented By: BRANDAN Vital Signs Vital signs: Vital Signs - 8 hr 01/08/22 12:24 01/08/22 14:15 01/08/22 15:35 Temperature 99.2 F Pulse Rate 52 L 51 L 174 H Respiratory Rate 18 18 Blood Pressure 161/68 H 157/74 H 180/81 H Pulse Oximetry 97 Oxygen Delivery Method Room Air 01/08/22 15:30 01/08/22 14:45 01/08/22 15:00 Temperature Pulse Rate 52 L 54 L 51 L Respiratory Rate 18 Blood Pressure 145/70 H Pulse Oximetry 98 99 99 Oxygen Delivery Method Room Air Room Air Room Air 01/08/22 15:15 01/08/22 15:30 01/08/22 15:45 Temperature Pulse Rate 60 56 L 120 H Respiratory Rate 18 Blood Pressure 146/77 H 147/84 H 167/77 H Pulse Oximetry 99 99 100 Oxygen Delivery Method Room Air Room Air Room Air 01/08/22 16:00 01/08/22 15:34 01/08/22 15:37 Temperature Pulse Rate 77 144 H 110 H Respiratory Rate Blood Pressure 153/60 H Pulse Oximetry 98 Oxygen Delivery Method Room Air 01/08/22 15:38 01/08/22 16:08 01/08/22 16:10 Temperature Pulse Rate 104 H 67 Respiratory Rate 18 Blood Pressure 135/61 Pulse Oximetry 100 Oxygen Delivery Method 01/08/22 16:10 01/08/22 16:15 01/08/22 16:15 Temperature Pulse Rate 70 65 Respiratory Rate 15 17 Blood Pressure 121/56 L Pulse Oximetry 100 99 Oxygen Delivery Method 01/08/22 16:30 Temperature Pulse Rate 66 Respiratory Rate 21 Blood Pressure Pulse Oximetry 99 Oxygen Delivery Method MDM - Chest Pain <Carri Trujillo PA-C - Last Filed: 01/08/22 16:58> Lab Data Lab results narrative: Labs within normal limits Result diagrams: 01/08/22 12:33 01/08/22 12:33 Labs: Lab Results 01/08/22 01/08/22 01/08/22 Range/Units 12:33 12:33 15:45 WBC 8.8 (4.5-11.0) X10^3/uL RBC 5.09 (4.0-5.2) X10^6/uL Hgb 14.2 (12.0-16.0) g/dL Hct 42.0 (36-46) % MCV 82.5 (80-100) fL MCH 28.0 (26-34) PG MCHC 33.9 (30-36) % RDW 12.2 (11.6-14.8) % Plt Count 330 (150-400) X10^3/uL Neut % (Auto) 69.7 (50-75) % Lymph % (Auto) 20.1 L (25-40) % [place] % (Auto) 7.0 (3-14) % Eos % (Auto) 2.3 (2-4) % Baso % (Auto) 0.9 (0-2) % Neut # (Auto) 6100 (3146-5348) /uL Lymph # (Auto) 1800 (9197-5136) /uL [place] # (Auto) 600 (0-900) /uL Eos # (Auto) 200 (0-450) /uL Baso # (Auto) 100 (0-100) /uL Sodium 140 (137-145) mmol/L Potassium 3.7 (3.4-5.1) mmol/L Chloride 103 (98-107) mmol/L Carbon Dioxide 29 (22-32) mmol/L BUN 9 (7-17) mg/dL Creatinine 0.76 (0.52-1.04) mg/dL Estimated GFR > 60 (>60) mL/min BUN/Creatinine Ratio 11.8 (6-22) Glucose 112 H (70-100) mg/dL Calcium 8.9 (8.4-10.2) mg/dL Magnesium 2.2 (1.6-2.3) mg/dL Total Bilirubin 0.5 (0.2-1.3) mg/dL AST 29 (14-36) IU/L ALT 36 H (<35) IU/L Alkaline Phosphatase 63 (38-126) U/L Total Creatine Kinase 131 129 (30-135) U/L CK-MB (CK-2) 0.37 0.26 (<2.37) ng/mL CK-MB (CK-2) Rel Index 0.3 L 0.2 L (1.5-5.0) % Troponin I < 0.012 < 0.012 (0.01-0.034) ng/mL Total Protein 7.9 (6.3-8.2) g/dL Albumin 4.3 (3.5-5.0) g/dL Globulin 3.6 (1.7-4.1) g/dL Albumin/Globulin Ratio 1.2 (1.0-2.8) Lipase 43 (23-300) U/L Imaging Data Chest x-ray: Radiologist's Impression: PROCEDURE:? XR CHEST 1V ? INDICATIONS:? chest pain ? TECHNIQUE:? One view of the chest was acquired.? ? COMPARISON:? [facility], CR, XR CHEST 1V, 06/18/2021, 21:46. ? FINDINGS:? ? Surgical changes and devices:? None.? ? Lungs and pleura:? Lungs are clear.? No pleural effusions or pneumothorax.? ? Mediastinum:? Mediastinal contours appear normal.? Heart size is normal.? ? Bones and chest wall:? No suspicious bony lesions.? Overlying soft tissues appear unremarkable.? ? IMPRESSION:? No acute cardiopulmonary findings. ? ? Dictated by: Delmy Abernathy M.D. on 01/08/2022 at 13:03 ? ? Approved by: Delmy Abernathy M.D. on 01/08/2022 at 13:04 ? ECG Data Interpretation: Sinus rhythm with occasional PVCs. No axis deviation. No acute ST-T changes. [facility] Narrative Medical decision making narrative: 31-year-old female with past medical history of headaches, anxiety presents to the ED with 2 days of substernal chest pain and 1 week of frontal headache. Concern for primary headache versus ACS versus GERD versus gastritis versus other. Will obtain EKG, chest x-ray, labs, troponin. Will treat headache with Tylenol, ketorolac, Benadryl, Reglan, IV fluids. Will give GI cocktail, Pepcid AC. Will re-evaluate. Patient's headache resolved with medications. Patient's chest pain not greatly improved. Patient had a brief run of sinus tachycardia of 150 for about 2 minutes. Resolved back down to the 70s with deep breathing. EKG was repeated, showed no acute changes other than sinus tachycardia. Patient continued to be stable throughout the rest of the ED stay. Discharge patient home with recommendation for cardiology follow-up as soon as possible. ED return precautions were discussed with patient. Patient verbalized understanding. <Jennifer Demetrius, DO - Last Filed: 01/09/22 10:02> Lab Data Labs: Lab Results 01/08/22 01/08/22 01/08/22 Range/Units 12:33 12:33 15:45 WBC 8.8 (4.5-11.0) X10^3/uL RBC 5.09 (4.0-5.2) X10^6/uL Hgb 14.2 (12.0-16.0) g/dL Hct 42.0 (36-46) % MCV 82.5 (80-100) fL MCH 28.0 (26-34) PG MCHC 33.9 (30-36) % RDW 12.2 (11.6-14.8) % Plt Count 330 (150-400) X10^3/uL Neut % (Auto) 69.7 (50-75) % Lymph % (Auto) 20.1 L (25-40) % [place] % (Auto) 7.0 (3-14) % Eos % (Auto) 2.3 (2-4) % Baso % (Auto) 0.9 (0-2) % Neut # (Auto) 6100 (0176-8075) /uL Lymph # (Auto) 1800 (5929-3689) /uL [place] # (Auto) 600 (0-900) /uL Eos # (Auto) 200 (0-450) /uL Baso # (Auto) 100 (0-100) /uL Sodium 140 (137-145) mmol/L Potassium 3.7 (3.4-5.1) mmol/L Chloride 103 (98-107) mmol/L Carbon Dioxide 29 (22-32) mmol/L BUN 9 (7-17) mg/dL Creatinine 0.76 (0.52-1.04) mg/dL Estimated GFR > 60 (>60) mL/min BUN/Creatinine Ratio 11.8 (6-22) Glucose 112 H (70-100) mg/dL Calcium 8.9 (8.4-10.2) mg/dL Magnesium 2.2 (1.6-2.3) mg/dL Total Bilirubin 0.5 (0.2-1.3) mg/dL AST 29 (14-36) IU/L ALT 36 H (<35) IU/L Alkaline Phosphatase 63 (38-126) U/L Total Creatine Kinase 131 129 (30-135) U/L CK-MB (CK-2) 0.37 0.26 (<2.37) ng/mL CK-MB (CK-2) Rel Index 0.3 L 0.2 L (1.5-5.0) % Troponin I < 0.012 < 0.012 (0.01-0.034) ng/mL Total Protein 7.9 (6.3-8.2) g/dL Albumin 4.3 (3.5-5.0) g/dL Globulin 3.6 (1.7-4.1) g/dL Albumin/Globulin Ratio 1.2 (1.0-2.8) Lipase 43 (23-300) U/L ECG Data Interpretation: Sinus rhythm with occasional PVCs. No axis deviation. No acute ST-T changes. DEMETRIUS-sinus tachycardia rate 105 W[place] interval 204 QRS [address] changes or T-wave inversions Discharge Plan Departure Patient Disposition: Home Clinical Impression: Chest pain, Headache Instructions: DI for Headache, DI for Chest Pain Activity Restrictions/Additional Instructions: You were evaluated in the ED today for chest pain and headache. Your chest x- ray, EKG, labs were normal. You were treated with Toradol, Tylenol, Reglan, Benadryl, IV fluids, GI cocktail, Pepcid AC for your symptoms. Your headache responded well to the medications. It is unclear why you are having a palpitations. Please [facility]-up with [facility] for further evaluation as soon as possible. Please continue to stay well hydrated. Return to the ED if your symptoms worsen, you experience shortness of breath. Referrals: Juan Antonio Mack MD [Primary Care Provider] - Visit Report Forms: Patient Portal/API <Jennifer Santos DO - Last Filed: 01/09/22 10:02> Cosign ED Attending Jacquelin Attestation: I was immediately available in the department for consultation. Documentation has been reviewed. I agree with assessment and plan.
[2022-01-08] MEDS: SODIUM CHLORIDE 0.9% 1,000 ML 1000 ML IV (15:11)
[2022-01-08] MEDS: ACETAMINOPHEN 325 MG TABLET 975 MG PO (15:13)
[2022-01-08] MEDS: KETOROLAC 30 MG/ML VIAL 15 MG IV (15:14)
[2022-01-08] MEDS: FAMOTIDINE 20 MG/2 ML VIAL IV (15:16)
[2022-01-08] MEDS: diphenhydrAMINE 50 MG/ML VIAL IV (15:16)
[2022-01-08] MEDS: MAG HYDROX/ALUMINUM/SIMETH SUS 20 ML, LIDOCAINE VISCOUS 2% 15 ML PO (15:17)
[2022-01-08] MEDS: METOCLOPRAMIDE 10 MG/2 ML INJ IV (15:21)
--- NOTE | 2022-01-08 16:09 | PC.NURSE ---
Approximately two minutes after giving prescribed medications, the patient reported nausea and asked for an emesis bag. One minute later, she reported not feeling good and could not point out was was wrong. Her RR was 35, heart rate 165. Ronnie COE called to bedside, EKG performed, new orders received. Provider coached patient on breathing and patients heart rate returned to 70. Patient reported dizziness, dizziness improving at this time.
[2022-01-08 16:16] LABS: Creatine Kinase 129 U/L (30-135)
[2022-01-08 16:29] LABS: Troponin I < 0.012 ng/mL (0.01-0.034)
[2022-01-08 16:31] LABS: CKMB % Relative Index 0.2 % (1.5-5.0); Creatine Kinase MB 0.26 ng/mL (<2.37)
== END 2022-01-08 16:52 | disposition home or self-care (01) ==
PROVIDERS: Emergency Medicine; Emergency Provider Student in an Organized Health Care Education/Training Program; PCP Family Medicine
DX: R07.9 Chest pain, unspecified (principal); R51.9 Headache, unspecified; R00.0 Tachycardia, unspecified
CPT/HCPCS: 36415; 71045; 80053; 82550; 82553; 83690; 83735; 84484; 85025; 93005; 96361; 96374; 96375; 99284; J1200; J1885; J2765

== ENCOUNTER 2022-09-04 09:40 | Emergency (ER) | payer OTHER, SELFPAY ==
[2022-09-04] VITALS (11 sets, daily range): BP systolic 121–148; BP diastolic 64–98; PULSE 53–84; RESP 18; O2SAT 98–100; BMI 35.9
[2022-09-04 10:32] LABS: Bacteria Urine None Seen; Culture Indicated Urine Cult Not Indicated; RBC Urine None Seen (0-5/HPF); Squamous Epithelial Cell Urine 1-5 /HPF (0-5/HPF); WBC Urine 0-1/HPF (0-5/HPF)
[2022-09-04 11:03] LABS: Add Manual Diff / Slide Review NO; Basophils Absolute Auto 0 /uL (0-100); Basophils Percent Auto 0.4 % (0-2); Eosinophils Absolute Auto 100 /uL (0-450); Eosinophils Percent Auto 2.6 % (2-4); Hematocrit 42.7 % (36-46); Hemoglobin 14.3 g/dL (12.0-16.0); Lymphocytes Absolute Auto 900 /uL (1100-4500); Lymphocytes Percent Auto 18.5 % (25-40); Mean Corpuscular HGB Conc 33.5 % (30-36); Mean Corpuscular Volume 83.6 fL (80-100); Monocytes Absolute Auto 500 /uL (0-900); Monocytes Percent Auto 9.5 % (3-14); Neutrophils Absolute Auto 3400 /uL (1500-7000); Platelet Count 295 X10^3/uL (150-400); Red Blood Cell Count 5.11 X10^6/uL (4.0-5.2); Red Cell Distribution Width 12.8 % (11.6-14.8); White Blood Cell Count 4.9 X10^3/uL (4.5-11.0)
[2022-09-04 11:14] LABS: Alanine Aminotransferase 22 IU/L (<35); Albumin 4.2 g/dL (3.5-5.0); Albumin Globulin Ratio 1.3 (1.0-2.8); Alkaline Phosphatase 49 U/L (38-126); Aspartate Aminotransferase 23 IU/L (14-36); BUN Creatinine Ratio 19.6 (6-22); Bilirubin Total 0.4 mg/dL (0.2-1.3); Blood Urea Nitrogen 11 mg/dL (7-17); Calcium 8.5 mg/dL (8.4-10.2); Carbon Dioxide 26 mmol/L (22-32); Chloride 105 mmol/L (98-107); Estimated Glomerular Filt Rate > 60 mL/min (>60); Globulin 3.2 g/dL (1.7-4.1); Glucose 93 mg/dL (70-100); HEMOLYSIS < 15 (0-50); Lipase 38 U/L (23-300); Potassium 3.7 mmol/L (3.4-5.1); Sodium 137 mmol/L (137-145); Total Protein 7.4 g/dL (6.3-8.2)
[2022-09-04] MEDS: ONDANSETRON 4 MG/2 ML INJ IV (12:35)
[2022-09-04 12:40] LABS: Pregnancy Test Urine Negative (Negative)
--- NOTE | 2022-09-04 12:46 | ED_ITS ---
HPI - Back Pain/Injury <Carri Trujillo PA-C - Last Filed: 09/04/22 16:30> General Chief Complaint: Back Pain/Injury Stated Complaint: Came from [facility]; N/V; chest pain, high BP Time Seen by Provider: 09/04/22 11:56 Source: patient History of Present Illness HPI Narrative: 31-year-old female presents to the ED with 2 days of fever, nausea, vomiting, diarrhea, generalized abdominal cramping. Patient also endorses some lower back pain. Patient denies chills, chest pain, shortness of breath, dysuria, lightheadedness, syncope. Patient states that she just finished her last menstrual period 4 days ago. Patient states that she is unsure if this is related to kidney stones. Related Data Previous Rx's Medication Instructions Recorded norethindrone 0.4 mg-ethinyl 1 tab PO DAILY #84 tabs 03/22/22 estradiol 35 mcg tablet ondansetron 4 mg disintegrating 4 mg PO Q8H PRN nausea and 09/04/22 tablet vomiting #14 tabs Allergies Allergy/AdvReac Type Severity Reaction Status Date / Time No Known Drug Allergies Allergy Verified 09/04/22 10:13 Review of Systems <Carri Trujillo PA-C - Last Filed: 09/04/22 16:30> Review of Systems ROS Unobtainable: All systems reviewed & are unremarkable except as noted in HPI and below Constitutional Constitutional: Denies chills, Denies fatigue, Reports fever(s), Denies frequent falls, Denies lethargy and Denies weakness Eyes Eyes: Denies change in vision, Denies eye discharge, Denies irritation and Denies loss of vision ENT Ears, Nose, Mouth, and Throat: Denies change in voice, Denies dizziness, Denies neck pain, Denies sore throat and Denies throat swelling Cardiovascular Cardiovascular: Denies chest pain, Denies irregular heart rhythm, Denies lightheadedness, Denies palpitations, Denies dyspnea, Denies dyspnea on exertion and Denies orthopnea Respiratory Respiratory: Denies cough, Denies dyspnea, Denies dyspnea on exertion and Denies wheezing Gastrointestinal Gastrointestinal: Reports abdominal pain, Denies change in bowel habits, Reports diarrhea, Reports nausea and Reports vomiting Genitourinary Genitourinary: Denies hematuria, Denies flank pain, Denies urinary incontinence and Denies urinary urgency Musculoskeletal Musculoskeletal: Reports back pain, Denies muscle weakness, Denies neck pain, Denies numbness and Denies tingling Integumentary/Breasts Skin/Breast: Denies pruritus, Denies erythema, Denies rash and Denies wounds Neurologic Neurologic: Denies behavioral changes, Denies confusion, Denies dizziness, Denies frequent falls, Denies loss of vision, Denies numbness, Denies tingling and Denies weakness Psychiatric Psychiatric: Denies anxiety, Denies behavioral changes, Denies confusion, Denies depression, Denies homicidal ideation and Denies suicidal ideation Endocrine Endocrine: Denies fatigue, Denies flushing and Denies palpitations Hematologic/Lymphatic Hematologic/Lymphatic: Denies easy bruising Allergic/Immunologic Allergic/Immunologic: Denies urticaria, Denies throat swelling and Denies wheezing Patient History <Carri Trujillo PA-C - Last Filed: 09/04/22 16:30> Medical History section wound complication Chicken pox (~1997) Depression (~2008) History of irregular menstrual cycles Menorrhagia with irregular cycle Migraine MRSA (methicillin resistant Staphylococcus aureus) (~2009) Pneumonia involving right lung Surgical History History of dilatation and curettage History of tubal ligation Status post delivery (06/20/11) Status post delivery (01/20/14) Status post delivery (11/21/16) Family History Father Age: 68 Hypertension Social History marital status: household members: spouse and children Smoking Status: Former smoker alcohol intake: never substance use type: does not use Smoking Status: Former smoker alcohol intake frequency: a few times a month Substance Use Type: does not use Exam <Carri Trujillo PA-C - Last Filed: 09/04/22 16:30> Narrative Exam Narrative: Const General:?cooperative, healthy appearing and comfortable HENPA Head:?normal to inspection Ears:?hearing grossly normal bilaterally Nose:?external nose normal Face and sinus:?normal facial exam and sinuses nontender Mouth:?oral mucosae normal Throat:?posterior oropharynx normal Eyes General:?appearance normal, both eyes and all related structures Neck Neck:?normal visual inspection and no lymphadenopathy noted Resp Effort & Inspection:?normal respiratory effort Auscultation:?clear to auscultation bilaterally Cardio Rate:?regular rate Rhythm:?regular rhythm GI Abdomen is soft, nondistended, nontender to palpation. No CVA tenderness. Neuro General:?patient alert, patient awake and patient oriented x3 Initial Vital Signs Initial Vital Signs: Vital Signs Pulse Rate 84 09/04/22 10:06 Blood Pressure 148/88 H 09/04/22 10:06 Pulse Oximetry 98 09/04/22 10:06 Const General: cooperative HENMT Head: normocephalic and atraumatic Ears: external ears normal and TM's normal bilaterally Nose: external nose normal and No nasal discharge Face and sinus: sinuses nontender, face symmetric, no sinus tenderness and No dry mucous membranes Mouth: oral mucosae normal and moist mucous membranes Teeth and gingiva: dentition normal Throat: tonsils normal and uvula midline Eyes General: Yes appearance normal, both eyes and all related structures Eyelids: eyelids normal Conjunctivae: conjunctivae normal Sclera: sclerae normal Pupils: PERRL EOM: EOM intact bilaterally Neck Neck: normal visual inspection, trachea midline, No lymphadenopathy, No midline deformity and No JVD Lymphatic: No lymphedema Chest Chest: normal inspection of the chest Resp Effort & Inspection: normal respiratory effort, able to speak in complete sentences, no respiratory distress and no use of accessory muscles Auscultation: clear to auscultation bilaterally, no rales, no rhonchi and no wheezes Cardio Rate: regular rate Rhythm: regular rhythm Heart Sounds: no click, no gallops, no murmurs and no rubs Pulses: normal peripheral pulses GI Inspection: non-distended Palpation: soft, no hepatosplenomegaly, No guarding, No pulsatile mass and No tender Auscultation: normal bowel sounds Back/Spine/Pelvis Back: No CVA tenderness Cervical Spine: cervical ROM normal and No pain with cervical ROM Thoracic/Lumbar Spine: thoracic and lumbar spine normal to inspection Skin General: no rashes or lesions noted, No jaundice and No petechiae Neuro General: patient alert, patient oriented x3, gait normal and no focal motor deficits Speech: speech normal Extrem General: full ROM, no clubbing, cyanosis or edema, no pedal edema and no calf tenderness Psych Appearance: well kempt Mental Status: mental status grossly normal Attitude: cooperative Thought Content: normal and suicidality Judgment: judgment good <Mariela Adam DO - Last Filed: 09/05/22 07:39> Initial Vital Signs Initial Vital Signs: Vital Signs Pulse Rate 84 09/04/22 10:06 Blood Pressure 148/88 H 09/04/22 10:06 Pulse Oximetry 98 09/04/22 10:06 Course <Carri Trujillo PA-C - Last Filed: 09/04/22 16:30> Orders Ordered: Discontinued Medications Ondansetron HCl (Ondansetron 4 Mg Odt) 4 mg PO NOW PRN PRN Reason: Nausea And Vomiting Ondansetron HCl (Ondansetron 4 Mg/2 Ml Inj) 4 mg IV NOW PRN PRN Reason: Nausea And Vomiting Last Admin: 09/04/22 12:35 Dose: 4 mg Documented By: NR Vital Signs Vital signs: Vital Signs - 8 hr 09/04/22 10:13 09/04/22 10:06 09/04/22 10:06 Pulse Rate 68 84 Respiratory Rate 18 Blood Pressure 148/88 H 148/88 H Pulse Oximetry 99 98 Oxygen Delivery Method Room Air 09/04/22 10:30 09/04/22 10:30 09/04/22 11:00 Pulse Rate 58 L Respiratory Rate Blood Pressure 132/68 130/75 Pulse Oximetry 98 Oxygen Delivery Method 09/04/22 11:00 09/04/22 11:30 09/04/22 11:30 Pulse Rate 58 L 63 Respiratory Rate Blood Pressure 127/98 H Pulse Oximetry 99 98 Oxygen Delivery Method 09/04/22 12:00 09/04/22 12:01 09/04/22 12:01 Pulse Rate 59 L 56 L Respiratory Rate Blood Pressure 130/64 Pulse Oximetry 100 100 Oxygen Delivery Method 09/04/22 12:30 09/04/22 12:30 09/04/22 13:00 Pulse Rate 61 Respiratory Rate Blood Pressure 138/68 148/72 H Pulse Oximetry 99 Oxygen Delivery Method 09/04/22 13:00 09/04/22 13:30 09/04/22 13:31 Pulse Rate 61 53 L Respiratory Rate Blood Pressure 121/64 Pulse Oximetry 99 98 Oxygen Delivery Method 09/04/22 13:31 Pulse Rate 58 L Respiratory Rate Blood Pressure Pulse Oximetry 98 Oxygen Delivery Method <Mariela Adam DO - Last Filed: 09/05/22 07:39> Orders Ordered: Discontinued Medications Ondansetron HCl (Ondansetron 4 Mg Odt) 4 mg PO NOW PRN PRN Reason: Nausea And Vomiting Ondansetron HCl (Ondansetron 4 Mg/2 Ml Inj) 4 mg IV NOW PRN PRN Reason: Nausea And Vomiting Last Admin: 09/04/22 12:35 Dose: 4 mg Documented By: NR Vital Signs Vital signs: Vital Signs - 8 hr 09/04/22 10:13 09/04/22 10:06 09/04/22 10:06 Pulse Rate 68 84 Respiratory Rate 18 Blood Pressure 148/88 H 148/88 H Pulse Oximetry 99 98 Oxygen Delivery Method Room Air 09/04/22 10:30 09/04/22 10:30 09/04/22 11:00 Pulse Rate 58 L Respiratory Rate Blood Pressure 132/68 130/75 Pulse Oximetry 98 Oxygen Delivery Method 09/04/22 11:00 09/04/22 11:30 09/04/22 11:30 Pulse Rate 58 L 63 Respiratory Rate Blood Pressure 127/98 H Pulse Oximetry 99 98 Oxygen Delivery Method 09/04/22 12:00 09/04/22 12:01 09/04/22 12:01 Pulse Rate 59 L 56 L Respiratory Rate Blood Pressure 130/64 Pulse Oximetry 100 100 Oxygen Delivery Method 09/04/22 12:30 09/04/22 12:30 09/04/22 13:00 Pulse Rate 61 Respiratory Rate Blood Pressure 138/68 148/72 H Pulse Oximetry 99 Oxygen Delivery Method 09/04/22 13:00 09/04/22 13:30 09/04/22 13:31 Pulse Rate 61 53 L Respiratory Rate Blood Pressure 121/64 Pulse Oximetry 99 98 Oxygen Delivery Method 09/04/22 13:31 Pulse Rate 58 L Respiratory Rate Blood Pressure Pulse Oximetry 98 Oxygen Delivery Method MDM - Back Pain/Injury <Carri Trujillo PA-C - Last Filed: 09/04/22 16:30> Lab Data 09/04/22 10:49 09/04/22 10:49 Labs: Lab Results 0509/04/22 09/04/22 Range/Units 09:40 10:49 10:49 WBC 4.9 (4.5-11.0) X10^3/uL RBC 5.11 (4.0-5.2) X10^6/uL Hgb 14.3 (12.0-16.0) g/dL Hct 42.7 (36-46) % MCV 83.6 (80-100) fL MCH 28.0 (26-34) PG MCHC 33.5 (30-36) % RDW 12.8 (11.6-14.8) % Plt Count 295 (150-400) X10^3/uL Neut % (Auto) 69.0 (50-75) % Lymph % (Auto) 18.5 L (25-40) % [place] % (Auto) 9.5 (3-14) % Eos % (Auto) 2.6 (2-4) % Baso % (Auto) 0.4 (0-2) % Neut # (Auto) 3400 (3213-1880) /uL Lymph # (Auto) 900 L (0211-9909) /uL [place] # (Auto) 500 (0-900) /uL Eos # (Auto) 100 (0-450) /uL Baso # (Auto) 0 (0-100) /uL Sodium 137 (137-145) mmol/L Potassium 3.7 (3.4-5.1) mmol/L Chloride 105 (98-107) mmol/L Carbon Dioxide 26 (22-32) mmol/L BUN 11 (7-17) mg/dL Creatinine 0.56 (0.52-1.04) mg/dL Estimated GFR > 60 (>60) mL/min BUN/Creatinine Ratio 19.6 (6-22) Glucose 93 (70-100) mg/dL Calcium 8.5 (8.4-10.2) mg/dL Total Bilirubin 0.4 (0.2-1.3) mg/dL AST 23 (14-36) IU/L ALT 22 (<35) IU/L Alkaline Phosphatase 49 (38-126) U/L Total Protein 7.4 (6.3-8.2) g/dL Albumin 4.2 (3.5-5.0) g/dL Globulin 3.2 (1.7-4.1) g/dL Albumin/Globulin Ratio 1.3 (1.0-2.8) Lipase 38 (23-300) U/L Urine RBC None seen (0-5/HPF) Urine WBC 0-1/hpf (0-5/HPF) Ur Squamous Epith Cells 1-5 /hpf (0-5/HPF) Urine Bacteria None seen (None) Ur Culture Indicated? Cult not indicated Urine Test (Negative) 09/04/22 Range/Units 10:56 WBC (4.5-11.0) X10^3/uL RBC (4.0-5.2) X10^6/uL Hgb (12.0-16.0) g/dL Hct (36-46) % MCV (80-100) fL MCH (26-34) PG MCHC (30-36) % RDW (11.6-14.8) % Plt Count (150-400) X10^3/uL Neut % (Auto) (50-75) % Lymph % (Auto) (25-40) % [place] % (Auto) (3-14) % Eos % (Auto) (2-4) % Baso % (Auto) (0-2) % Neut # (Auto) (1575-7234) /uL Lymph # (Auto) (0748-0795) /uL [place] # (Auto) (0-900) /uL Eos # (Auto) (0-450) /uL Baso # (Auto) (0-100) /uL Sodium (137-145) mmol/L Potassium (3.4-5.1) mmol/L Chloride (98-107) mmol/L Carbon Dioxide (22-32) mmol/L BUN (7-17) mg/dL Creatinine (0.52-1.04) mg/dL Estimated GFR (>60) mL/min BUN/Creatinine Ratio (6-22) Glucose (70-100) mg/dL Calcium (8.4-10.2) mg/dL Total Bilirubin (0.2-1.3) mg/dL AST (14-36) IU/L ALT (<35) IU/L Alkaline Phosphatase (38-126) U/L Total Protein (6.3-8.2) g/dL Albumin (3.5-5.0) g/dL Globulin (1.7-4.1) g/dL Albumin/Globulin Ratio (1.0-2.8) Lipase (23-300) U/L Urine RBC (0-5/HPF) Urine WBC (0-5/HPF) Ur Squamous Epith Cells (0-5/HPF) Urine Bacteria (None) Ur Culture Indicated? Urine Test Negative (Negative) Urine Dip Bedside Urine Glucose Negative Bedside Urine Bilirubin - Negative Bedside Urine Ketone - Negative Urine Specific [place] 1.015 Bedside Urine Occult Blood +/- Bedside Urine pH 6.0 Bedside Urine Protein - Negative Bedside Urine Urobilinogen - Negative Bedside Urine Nitrite - Negative Bedside Urine Leukocytes - Negative Esterase MDM Narrative Medical decision making narrative: 31-year-old female presents to the ED with 2 days of fever, nausea, vomiting, generalized abdominal cramping. Concern for UTI versus versus GERD versus gastroenteritis versus gastritis versus other. Abdomen is benign. Will obtain UA, labs. UA shows hematuria, no signs of infection. hCG negative. EKG shows normal sinus rhythm with sinus arrhythmia, no acute ST-T changes. Patie nt's symptoms are likely due to GERD versus gastroenteritis. Patient's symptoms significantly improved with Zofran. Will prescribe Zofran. Recommend good hydration. Recommend brat diet for diarrhea. ED return precautions were discussed with patient. Patient verbalized understanding. Medical records reviewed: Yes <Mariela Adam DO - Last Filed: 09/05/22 07:39> Lab Data Labs: Lab Results 09/04/22 09/04/22 09/04/22 Range/Units 09:40 10:49 10:49 WBC 4.9 (4.5-11.0) X10^3/uL RBC 5.11 (4.0-5.2) X10^6/uL Hgb 14.3 (12.0-16.0) g/dL Hct 42.7 (36-46) % MCV 83.6 (80-100) fL MCH 28.0 (26-34) PG MCHC 33.5 (30-36) % RDW 12.8 (11.6-14.8) % Plt Count 295 (150-400) X10^3/uL Neut % (Auto) 69.0 (50-75) % Lymph % (Auto) 18.5 L (25-40) % [place] % (Auto) 9.5 (3-14) % Eos % (Auto) 2.6 (2-4) % Baso % (Auto) 0.4 (0-2) % Neut # (Auto) 3400 (9736-5089) /uL Lymph # (Auto) 900 L (8279-6015) /uL [place] # (Auto) 500 (0-900) /uL Eos # (Auto) 100 (0-450) /uL Baso # (Auto) 0 (0-100) /uL Sodium 137 (137-145) mmol/L Potassium 3.7 (3.4-5.1) mmol/L Chloride 105 (98-107) mmol/L Carbon Dioxide 26 (22-32) mmol/L BUN 11 (7-17) mg/dL Creatinine 0.56 (0.52-1.04) mg/dL Estimated GFR > 60 (>60) mL/min BUN/Creatinine Ratio 19.6 (6-22) Glucose 93 (70-100) mg/dL Calcium 8.5 (8.4-10.2) mg/dL Total Bilirubin 0.4 (0.2-1.3) mg/dL AST 23 (14-36) IU/L ALT 22 (<35) IU/L Alkaline Phosphatase 49 (38-126) U/L Total Protein 7.4 (6.3-8.2) g/dL Albumin 4.2 (3.5-5.0) g/dL Globulin 3.2 (1.7-4.1) g/dL Albumin/Globulin Ratio 1.3 (1.0-2.8) Lipase 38 (23-300) U/L Urine RBC None seen (0-5/HPF) Urine WBC 0-1/hpf (0-5/HPF) Ur Squamous Epith Cells 1-5 /hpf (0-5/HPF) Urine Bacteria None seen (None) Ur Culture Indicated? Cult not indicated Urine Test (Negative) 09/04/22 Range/Units 10:56 WBC (4.5-11.0) X10^3/uL RBC (4.0-5.2) X10^6/uL Hgb (12.0-16.0) g/dL Hct (36-46) % MCV (80-100) fL MCH (26-34) PG MCHC (30-36) % RDW (11.6-14.8) % Plt Count (150-400) X10^3/uL Neut % (Auto) (50-75) % Lymph % (Auto) (25-40) % [place] % (Auto) (3-14) % Eos % (Auto) (2-4) % Baso % (Auto) (0-2) % Neut # (Auto) (7623-5642) /uL Lymph # (Auto) (3100-2359) /uL [place] # (Auto) (0-900) /uL Eos # (Auto) (0-450) /uL Baso # (Auto) (0-100) /uL Sodium (137-145) mmol/L Potassium (3.4-5.1) mmol/L Chloride (98-107) mmol/L Carbon Dioxide (22-32) mmol/L BUN (7-17) mg/dL Creatinine (0.52-1.04) mg/dL Estimated GFR (>60) mL/min BUN/Creatinine Ratio (6-22) Glucose (70-100) mg/dL Calcium (8.4-10.2) mg/dL Total Bilirubin (0.2-1.3) mg/dL AST (14-36) IU/L ALT (<35) IU/L Alkaline Phosphatase (38-126) U/L Total Protein (6.3-8.2) g/dL Albumin (3.5-5.0) g/dL Globulin (1.7-4.1) g/dL Albumin/Globulin Ratio (1.0-2.8) Lipase (23-300) U/L Urine RBC (0-5/HPF) Urine WBC (0-5/HPF) Ur Squamous Epith Cells (0-5/HPF) Urine Bacteria (None) Ur Culture Indicated? Urine Test Negative (Negative) Urine Dip Bedside Urine Glucose Negative Bedside Urine Bilirubin - Negative Bedside Urine Ketone - Negative Urine Specific [place] 1.015 Bedside Urine Occult Blood +/- Bedside Urine pH 6.0 Bedside Urine Protein - Negative Bedside Urine Urobilinogen - Negative Bedside Urine Nitrite - Negative Bedside Urine Leukocytes - Negative Esterase Discharge Plan Departure Patient Disposition: Home Clinical Impression: Gastroenteritis Instructions: DI for Bacterial Gastroenteritis -- Adult Activity Restrictions/Additional Instructions: Evaluated in the ED today for nausea, vomiting, diarrhea. Your urine, labs were normal. Your symptoms are most likely due to gastroenteritis from food poisoning. Your nausea subsided with Zofran in the ED. you may continue taking Zofran at home. It is important to keep well hydrated. You may follow a BRAT diet for the diarrhea, which includes bananas, rice, apples, toast. Please follow-up with your PCP as soon as possible. Please return to the ED if you are uncontrollably vomiting and unable to keep down fluids despite taking the Zofran. Prescriptions: New ondansetron 4 mg tablet,disintegrating 4 mg PO Q8H PRN (Reason: nausea and vomiting) Qty: 14 0RF No Action norethindrone-ethin estradiol 0.4-35 mg-mcg tablet 1 tab PO DAILY Qty: 84 3RF Referrals: Juan Antonio Mack MD [Primary Care Provider] - Stand Alone Forms: Patient Portal/API, Work Release Note <Mariela Adam DO - Last Filed: 09/05/22 07:39> Cosign ED Attending Cosignature Attestation: I was immediately available in the department for consultation. Documentation has been reviewed.
== END 2022-09-04 13:44 | disposition home or self-care (01) ==
PROVIDERS: Emergency Medicine; Emergency Provider Student in an Organized Health Care Education/Training Program; PCP Family Medicine
DX: K52.9 Noninfective gastroenteritis and colitis, unspecified (principal); R10.84 Generalized abdominal pain; M54.50 Low back pain, unspecified
CPT/HCPCS: 36415; 80053; 81003; 81015; 81025; 83690; 85025; 87077; 87086; 87147; 93005; 93010; 96374; 99284; J2405

== ENCOUNTER → 2022-09-11 11:08 | Outpatient (CLI) | payer OTHER, SELFPAY ==
[2022-09-11 13:10] LABS: TSH w/ Reflex to FT4 1.63 uIU/mL (0.47-4.68)
== END ==
PROVIDERS: PCP Family Medicine; Referring Provider Physician Assistant; Visit Provider Physician Assistant
DX: R03.0 Elevated blood-pressure reading, without diagnosis of hypertension (principal); R60.9 Edema, unspecified
CPT/HCPCS: 36415; 84443

== ENCOUNTER → 2022-12-06 07:10 | Outpatient (CLI) | payer OTHER, SELFPAY ==
--- NOTE | 2022-12-06 | DI.ECHO.S_ITS ---
[facility] +---------+ [facility] +---------+ : : [address] : : : : [id number] : : : : Phone: [phone]+ Echocardiogram Report + + :Name: HERIBERTO LAMAR Study Date: 12/06/2022 Height: 61 in : :[facility] ReadingLocation: Weight: 180 lb : : Gender: Female BSA: 1.8 m2 : :: 1990 Age: 32 yrs BP: 147/89 mmHg: :Reason For Study: Chest Pain : :Ordering Physician: NICK, : :FELICE Performed By: Marleni Bennett : :Referring: FELICE ROEMRO : + + Interpretation Summary The ejection fraction is estimated to be 50-55%. Diastolic parameters suggest probable normal left ventricular diastolic function and normal filling pressures. The right ventricle is normal in size and function. There is mild to moderate mitral regurgitation. There is mild aortic regurgitation. Pulmonary artery pressures cannot be estimated because of the lack of a measurable TR jet velocity. Procedure: A two-dimensional transthoracic echocardiogram with color flow and Doppler was performed. The study quality was technically adequate. There is no prior echocardiogram noted for this patient. The patient was in normal sinus rhythm during the exam. Left Ventricle: The left ventricle is normal in size. The ejection fraction is estimated to be 50-55%. Diastolic parameters suggest probable normal left ventricular diastolic function and normal filling pressures. Right Ventricle: The right ventricle is normal in size and function. Atria: The left atrial size is normal. Right atrial size is normal. There is no Doppler evidence for an interatrial shunt. Mitral Valve: The mitral valve leaflets appear mildly thickened, but open well. There is no mitral valve stenosis. There is mild to moderate mitral regurgitation. Aortic Valve: The aortic valve is trileaflet. The aortic valve opens well. The aortic valve is slightly calcified. There is no aortic valve stenosis. There is mild aortic regurgitation. Tricuspid Valve: The tricuspid valve is normal. There is no tricuspid stenosis. There is trace tricuspid regurgitation. Pulmonary artery pressures cannot be estimated because of the lack of a measurable TR jet velocity. Pulmonic Valve: The pulmonic valve leaflets are thin and pliable; valve motion is normal. There is no pulmonic valvular stenosis. There is trace pulmonic regurgitation. Great Vessels: The aortic root is normal size. The ascending aorta is normal in size. The pulmonary artery is normal size. The inferior vena cava was not well visualized. Pericardium/ Pleura There is no pericardial effusion. There is no pleural effusion. MMode/2D Measurements & Calculations LVIDd: 4.7 cm LVOT diam: 2.0 cm LVIDs: 3.2 cm Ao root diam: 2.9 cm FS: 31.9 % asc Aorta Diam: 2.8 cm IVSd: 0.90 cm LVPWd: 0.70 cm LV hoff. diameter/BSA (cm/m^2): 2.6 LV sys. diameter/BSA (cm/m^2): 1.8 LA A2 area: 17.0 cm2 RA long axis: 5.1 cm LA A4 area: 16.0 cm2 RA area: 16.3 cm2 LA length (vol): 4.9 cm RA vol: 44.2 ml LA vol: 47.0 ml RA : 24.5 ml/m2 LA vol index: 26.0 ml/m2 RVD1 (basal): 3.4 cm LVLs ap4: 6.6 cm LVLd ap2: 8.3 cm TAPSE_phl: 2.0 cm LVLs ap2: 6.7 cm Doppler Measurements & Calculations Ao V2 max: 193.7 cm/sec LVOT Max Timmy: 97.7 cm/sec Ao V2 mean: 135.3 cm/sec LV V1 max P.8 mmHg Ao max P.0 mmHg LV V1 VTI: 23.1 cm Ao mean P.3 mmHg FELA(I,D): 1.6 cm2 Ao V2 VTI: 46.2 cm FELA(V,D): 1.6 cm2 sev ratio: 0.50 FELA indexed to BSA (cm^2/m^2): 0.87 AI P1/2t: 783.0 msec AI dec slope: 195.0 cm/sec2 MV E max timmy: 108.0 cm/sec TR max timmy: 180.0 cm/sec MV A max timmy: 86.8 cm/sec TR max P.0 mmHg MV E/A: 1.2 PA V2 max: 89.9 cm/sec Med Peak E' Timmy: 9.2 cm/sec PA V2 mean: 66.5 cm/sec E/E' med: 11.8 PA mean P.0 mmHg Lat Peak E' Timmy: 12.9 cm/sec PA pr(Accel): 16.0 mmHg E/E' lat: 8.4 E/e' average: 10.1 MV dec time: 0.27 sec SV(LVOT): 72.6 ml AV P1/2t-pr_phl: 789.6 msec AV VR_phl: 0.50 FELA(VTI)/BSA_phl: 0.87 Reading Physician:06:44 PM
== END ==
LOC: ECHO 07:10
PROVIDERS: PCP Family Medicine; Referring Provider Internal Medicine; Visit Provider Internal Medicine
DX: I08.0 Rheumatic disorders of both mitral and aortic valves (principal); R07.9 Chest pain, unspecified
CPT/HCPCS: 93306

== ENCOUNTER 2023-03-25 19:08 | Emergency (ER) | payer SELFPAY ==
[2023-03-25] VITALS (12 sets, daily range): BP systolic 119–184; BP diastolic 56–86; PULSE 53–67; RESP 18; TEMP 37.2; O2SAT 99–100; BMI 36.8
[2023-03-25] MEDS: ONDANSETRON 4 MG/2 ML INJ IV (21:01)
[2023-03-25 21:13] LABS: Alanine Aminotransferase 34 IU/L (<35); Albumin 4.2 g/dL (3.5-5.0); Albumin Globulin Ratio 1.4 (1.0-2.8); Alkaline Phosphatase 51 U/L (38-126); Aspartate Aminotransferase 30 IU/L (14-36); BUN Creatinine Ratio 22.1 (6-22); Bilirubin Total 0.3 mg/dL (0.2-1.3); Blood Urea Nitrogen 17 mg/dL (7-17); Carbon Dioxide 23 mmol/L (22-32); Chloride 103 mmol/L (98-107); Estimated Glomerular Filt Rate > 60 mL/min (>60); Globulin 3.1 g/dL (1.7-4.1); Glucose 100 mg/dL (70-100); HEMOLYSIS < 15 (0-50); Lipase 52 U/L (23-300); Potassium 3.7 mmol/L (3.4-5.1); Sodium 134 mmol/L (137-145); Total Protein 7.3 g/dL (6.3-8.2)
[2023-03-25 21:16] LABS: Add Manual Diff / Slide Review NO; Basophils Absolute Auto 0 /uL (0-100); Basophils Percent Auto 0.4 % (0-2); Eosinophils Absolute Auto 200 /uL (0-450); Eosinophils Percent Auto 2.1 % (2-4); Hematocrit 41.7 % (36-46); Hemoglobin 13.9 g/dL (12.0-16.0); Lymphocytes Absolute Auto 2600 /uL (1100-4500); Mean Corpuscular HGB Conc 33.4 % (30-36); Mean Corpuscular Hemoglobin 27.9 PG (26-34); Mean Corpuscular Volume 83.3 fL (80-100); Monocytes Absolute Auto 800 /uL (0-900); Monocytes Percent Auto 7.9 % (3-14); Neutrophils Absolute Auto 6000 /uL (1500-7000); Neutrophils Percent Auto 62.6 % (50-75); Platelet Count 298 X10^3/uL (150-400); Red Cell Distribution Width 12.8 % (11.6-14.8); White Blood Cell Count 9.7 X10^3/uL (4.5-11.0)
[2023-03-25] MEDS: KETOROLAC 30 MG/ML VIAL IV (22:46)
--- NOTE | 2023-03-25 23:10 | ED_ITS ---
HPI - Abdominal Pain General Chief Complaint: Abdominal Pain Stated Complaint: lower back/pelvic pain and nausea Time Seen by Provider: 03/25/23 22:25 Source: patient Mode of arrival: Ambulatory History of Present Illness HPI narrative: This is a 32-year-old female who arrives by private vehicle with a chief complaint of lower back and left lower quadrant abdominal pain. At onset it was 7 to 8/10, it began about 4 hours prior to being seen. It is improved considerably down to 3 to 4/10 when the patient was seen. It is associated with some nausea she is not vomited she is not had fevers. She has no urinary symptoms she is had no abnormal vaginal bleeding. Patient reports similar symptoms in the past with an ovarian cyst. Has had no changes in her bowel habits no abnormal vaginal discharge she is had previous sections and tubal ligations no other abdominal surgeries. Patient has had no fevers. Related Data Previous Rx's Medication Instructions Recorded ondansetron 4 mg disintegrating 4 mg PO Q8H #10 tabs 03/25/23 tablet Allergies Allergy/AdvReac Type Severity Reaction Status Date / Time No Known Drug Allergies Allergy Verified 12/06/22 10:05 Patient History Medical History section wound complication Chicken pox (~1997) Depression (~2008) History of irregular menstrual cycles Menorrhagia with irregular cycle Migraine MRSA (methicillin resistant Staphylococcus aureus) (~2009) Pneumonia involving right lung Surgical History History of dilatation and curettage History of tubal ligation Status post delivery (06/20/11) Status post delivery (01/20/14) Status post delivery (11/21/16) Family History Father Age: 68 Hypertension Social History marital status: household members: spouse and children Smoking Status: Former smoker alcohol intake: never substance use type: does not use Smoking Status: Former smoker alcohol intake frequency: a few times a month Substance Use Type: does not use Exam Initial Vital Signs Initial Vital Signs: Vital Signs Temperature 99 F 03/25/23 19:19 Pulse Rate 65 03/25/23 19:19 Respiratory Rate 18 03/25/23 19:19 Blood Pressure 184/86 H 03/25/23 19:19 Pulse Oximetry 100 03/25/23 19:19 Oxygen Delivery Method Room Air 03/25/23 19:19 Const General: No acute distress Resp Effort & Inspection: normal respiratory effort Auscultation: clear to auscultation bilaterally Cardio Rate: regular rate Heart Sounds: S1 normal, S2 normal and no murmurs GI Inspection: normal to inspection Auscultation: normal bowel sounds Other: No CVAT. Mild left lower quadrant tenderness no guarding and no rebound. No palpable masses. Skin General: no rashes or lesions noted Neuro General: patient alert and patient oriented x3 Course Course Course Narrative: Pain is improved after a dose of ketorolac. We discussed the plan for discharge, discussed the possibility of obtaining ultrasound to confirm ovarian cyst, given she would had similar symptoms previously and workup is otherwise benign I do not feel strongly that we need to do this the patient was in agreement. Orders Ordered: ED Orders 03/25/23 20:44 Complete Blood Count AUTO DIFF Stat Comprehensive Metabolic Panel Stat Lipase Stat Ondansetron HCl (Ondansetron 4 Mg/2 Ml Inj) 4 mg IV NOW PRN PRN Reason: Nausea And Vomiting Last Admin: 03/25/23 21:01 Dose: 4 mg Documented By: ELIZABETH Ondansetron HCl (Ondansetron 4 Mg Odt) 4 mg PO NOW PRN PRN Reason: Nausea And Vomiting Discontinued Medications Ketorolac Tromethamine (Ketorolac 30 Mg/Ml Vial) 30 mg IM NOW ONE Stop: 03/25/23 22:37 Last Admin: 03/25/23 22:46 Dose: Not Given Documented By: SB Ketorolac Tromethamine (Ketorolac 30 Mg/Ml Vial) 30 mg IV NOW ONE Stop: 03/25/23 22:46 Last Admin: 03/25/23 22:46 Dose: 30 mg Documented By: SB Vital Signs Vital signs: Vital Signs - 8 hr 03/25/23 19:19 03/25/23 20:50 03/25/23 20:51 Temperature 99 F Pulse Rate 65 Respiratory Rate 18 Blood Pressure 184/86 H 143/70 H Pulse Oximetry 100 100 Oxygen Delivery Method Room Air 03/25/23 20:51 03/25/23 21:00 03/25/23 21:00 Temperature Pulse Rate 53 L 67 Respiratory Rate Blood Pressure 136/59 L Pulse Oximetry 100 100 Oxygen Delivery Method 03/25/23 21:30 03/25/23 21:31 03/25/23 21:31 Temperature Pulse Rate 56 L 56 L Respiratory Rate Blood Pressure 127/67 Pulse Oximetry 99 99 Oxygen Delivery Method Room Air 03/25/23 22:00 03/25/23 22:00 03/25/23 22:30 Temperature Pulse Rate 60 55 L Respiratory Rate Blood Pressure 133/62 Pulse Oximetry 100 100 Oxygen Delivery Method Room Air 03/25/23 22:31 03/25/23 22:31 03/25/23 22:39 Temperature Pulse Rate 55 L Respiratory Rate Blood Pressure 165/76 H 133/56 L Pulse Oximetry 100 Oxygen Delivery Method 03/25/23 22:39 Temperature Pulse Rate 59 L Respiratory Rate Blood Pressure Pulse Oximetry 99 Oxygen Delivery Method Room Air MDM - Abdominal Pain Lab Data Lab results narrative: Dip urinalysis is negative urine test is negative CBC and CMP are unremarkable. 03/25/23 20:44 03/25/23 20:44 Labs: Lab Results 03/25/23 Range/Units 20:44 WBC 9.7 (4.5-11.0) X10^3/uL RBC 5.00 (4.0-5.2) X10^6/uL Hgb 13.9 (12.0-16.0) g/dL Hct 41.7 (36-46) % MCV 83.3 (80-100) fL MCH 27.9 (26-34) PG MCHC 33.4 (30-36) % RDW 12.8 (11.6-14.8) % Plt Count 298 (150-400) X10^3/uL Neut % (Auto) 62.6 (50-75) % Lymph % (Auto) 27.0 (25-40) % [place] % (Auto) 7.9 (3-14) % Eos % (Auto) 2.1 (2-4) % Baso % (Auto) 0.4 (0-2) % Neut # (Auto) 6000 (5835-2301) /uL Lymph # (Auto) 2600 (2942-5056) /uL [place] # (Auto) 800 (0-900) /uL Eos # (Auto) 200 (0-450) /uL Baso # (Auto) 0 (0-100) /uL Sodium 134 L (137-145) mmol/L Potassium 3.7 (3.4-5.1) mmol/L Chloride 103 (98-107) mmol/L Carbon Dioxide 23 (22-32) mmol/L BUN 17 (7-17) mg/dL Creatinine 0.77 (0.52-1.04) mg/dL Estimated GFR > 60 (>60) mL/min BUN/Creatinine Ratio 22.1 H (6-22) Glucose 100 (70-100) mg/dL Calcium 9.0 (8.4-10.2) mg/dL Total Bilirubin 0.3 (0.2-1.3) mg/dL AST 30 (14-36) IU/L ALT 34 (<35) IU/L Alkaline Phosphatase 51 (38-126) U/L Total Protein 7.3 (6.3-8.2) g/dL Albumin 4.2 (3.5-5.0) g/dL Globulin 3.1 (1.7-4.1) g/dL Albumin/Globulin Ratio 1.4 (1.0-2.8) Lipase 52 (23-300) U/L Point of care testing: Point of Care Testing Test Results Negative Urine Dip Bedside Urine Glucose Negative Bedside Urine Bilirubin - Negative Bedside Urine Ketone - Negative Urine Specific [place] 1.010 Bedside Urine Occult Blood - Negative Bedside Urine pH 6.0 Bedside Urine Protein - Negative Bedside Urine Urobilinogen - Negative Bedside Urine Nitrite - Negative Bedside Urine Leukocytes - Negative Esterase MDM Narrative Medical decision making narrative: 32-year-old female with left lower quadrant abdominal pain radiating to her back. Similar symptoms in the past with an ovarian cyst. Differential diagnosis would include ovarian cyst, ovarian torsion, ectopic , diverticulitis, urinary tract infection or ureteral stone. She is not . Her overall well appearance and lack of leukocytosis would argue against ovarian torsion. Urinalysis does not suggest infection or ureteral stone. Tenderness is minimal and she is fairly young I think diverticulitis is less likely. After discussion with the patient, we will treat her symptomatically and she will follow up as getting worse. Also recommended she follow up with her primary care provider she is having persistent symptoms. Discharge Plan Departure Patient Disposition: Home Clinical Impression: Pelvic pain in female Ovarian cyst Qualifiers: Laterality: left Qualified Code(s): N83.202 - Unspecified ovarian cyst, left side Activity Restrictions/Additional Instructions: Emergency department workup today is reassuring. Based on previous similar symptoms associated with an ovarian cyst and an otherwise reassuring evaluation I think it is reasonable to treat this symptomatically. You can use ibuprofen 600 mg every 6-8 hours as needed for pain. You can also use acetaminophen at usual [id number] doses and frequencies. I have sent a prescription for ondansetron to use as needed for nausea. If you are having increasing pain fevers vomiting or other acute symptoms recheck in the emergency department. Follow up soon with your primary care provider if your symptoms are persisting. Prescriptions: New ondansetron 4 mg tablet,disintegrating 4 mg PO Q8H Qty: 10 0RF Referrals: Juan Antonio Mack MD [Primary Care Provider] - Stand Alone Forms: Patient Portal/API
== END 2023-03-25 23:46 | disposition home or self-care (01) ==
PROVIDERS: Emergency Provider Emergency Medicine; PCP Family Medicine
DX: N83.202 Unspecified ovarian cyst, left side (principal)
CPT/HCPCS: 36415; 80053; 81003; 81025; 83690; 85025; 96372; 96374; 96375; 99284; J1885; J2405

== ENCOUNTER → 2023-07-01 09:49 | Outpatient (CLI) | payer OTHER, SELFPAY ==
--- NOTE | 2023-07-01 09:50 | DI.US.S_ITS ---
PROCEDURE: US ABDOMEN COMPLETE INDICATIONS: abd pain change in bowel habits TECHNIQUE: Real-time scanning was performed of the abdominal and retroperitoneal organs, with image documentation. COMPARISON: None. FINDINGS: Liver: Liver is normal in size and demonstrates mildly increased echotexture. Portal vein is patent and demonstrates hepatopetal flow. Gallbladder: No gallstones. No gallbladder wall thickening, pericholecystic fluid or sonographic De Dios's sign. Biliary ducts: Intrahepatic bile ducts are non-dilated. Extrahepatic bile duct caliber measures 3.1 mm. Normal is 6-7 mm or less in diameter, or 10 mm or less post-cholecystectomy. Pancreas: Visualized portions of the pancreas are sonographically normal. Spleen: Spleen is normal in size and homogeneous in echotexture. Kidneys: Kidneys are normal in size and echotexture. Right kidney measures 12.1 cm long; left kidney measures 11.7 cm long. No hydronephrosis or nephrolithiasis. No solid masses. Aorta: Visualized aorta is normal in caliber at less than 3 cm. Iliacs: Proximal common iliac arteries are normal in caliber at less than 2.5 cm. IVC: Intrahepatic inferior vena cava is patent. Miscellaneous: No free abdominal fluid. IMPRESSION: 1. Mild diffusely increased hepatic echotexture. This finding is most likely secondary to hepatic fatty infiltration although other hepatocellular disease may have a similar appearance. Recommend clinical correlation. Dictated by: Roman Lindo M.D. on 07/01/2023 at 16:06 Approved by: Roman Lindo M.D. on 07/01/2023 at 16:08
== END ==
LOC: US 09:50
PROVIDERS: PCP Family Medicine; Referring Provider Family Medicine; Visit Provider Family Medicine
DX: R10.11 Right upper quadrant pain (principal)
CPT/HCPCS: 76700

== ENCOUNTER → 2023-08-05 10:14 | Outpatient (CLI) | payer OTHER, SELFPAY ==
[2023-08-05 11:50] LABS: Hematocrit 43.9 % (36-46); Mean Corpuscular HGB Conc 34.2 % (30-36); Mean Corpuscular Hemoglobin 28.1 PG (26-34); Mean Corpuscular Volume 82.1 fL (80-100); Platelet Count 338 X10^3/uL (150-400); Red Blood Cell Count 5.35 X10^6/uL (4.0-5.2); Red Cell Distribution Width 12.4 % (11.6-14.8); White Blood Cell Count 7.1 X10^3/uL (4.5-11.0)
[2023-08-05 12:02] LABS: Erythrocyte Sedimentation Rate 4 MM/HR (0-20)
[2023-08-05 12:08] LABS: Alanine Aminotransferase 34 IU/L (<35); Albumin 4.9 g/dL (3.5-5.0); Albumin Globulin Ratio 1.6 (1.0-2.8); Alkaline Phosphatase 54 U/L (38-126); Aspartate Aminotransferase 27 IU/L (14-36); BUN Creatinine Ratio 22.6 (6-22); Bilirubin Total 0.5 mg/dL (0.2-1.3); Blood Urea Nitrogen 14 mg/dL (7-17); Calcium 9.4 mg/dL (8.4-10.2); Carbon Dioxide 25 mmol/L (22-32); Chloride 106 mmol/L (98-107); Estimated Glomerular Filt Rate > 60 mL/min (>60); Glucose 85 mg/dL (70-100); HEMOLYSIS < 15 (0-50); Sodium 138 mmol/L (137-145); Total Protein 7.9 g/dL (6.3-8.2)
[2023-08-05 12:45] LABS: TSH w/ Reflex to FT4 2.49 uIU/mL (0.47-4.68)
[2023-08-05 23:44] LABS: C-Reactive Protein Quant < 0.5 mg/dL (<1.0)
[2023-08-06 07:36] LABS: Immunoglobulin A 220 mg/dL (87-352)
[2023-08-07 20:27] LABS: Tissue Transglutaminase IgA <2 U/mL (0-3)
== END ==
PROVIDERS: PCP Family Medicine; Referring Provider Nurse Practitioner Family; Visit Provider Nurse Practitioner Family
DX: R10.11 Right upper quadrant pain (principal); R19.7 Diarrhea, unspecified
CPT/HCPCS: 36415; 80053; 82784; 83516; 84443; 85027; 85651; 86140

== ENCOUNTER → 2023-08-06 08:01 | Outpatient (CLI) | payer OTHER, SELFPAY | PROVIDERS: PCP Family Medicine; Referring Provider Nurse Practitioner Family; Visit Provider Nurse Practitioner Family | DX: R10.11 Right upper quadrant pain (principal); R19.7 Diarrhea, unspecified | CPT/HCPCS: 83993; 87177 ==

== ENCOUNTER → 2023-08-29 07:45 | Outpatient (CLI) | payer OTHER, SELFPAY ==
--- NOTE | 2023-08-29 07:48 | DI.NM.S_ITS ---
PROCEDURE: NM HIDA WITH CCK PHARMACEUTICAL: 5.5 mCi Tc-99m mebrofenin IV; 1.8 mcg CCK IV. INDICATIONS: Right upper quadrant pain, Diarrhea TECHNIQUE: Following intravenous administration of Tc-99m mebrofenin, sequential anterior abdominal images were obtained. To evaluate the contractile response of the gallbladder in response to Cholecystokinin (CCK), sincalide (0.02 ?g/kg) was administered by slow intravenous infusion approximately 60 minutes after the administration of the radiopharmaceutical. Sequential imaging was continued for 30 minutes after the start of CCK infusion. Gallbladder ejection fraction was calculated. COMPARISON: [facility], , US ABDOMEN COMPLETE, 07/01/2023, 10:00. FINDINGS: Biliary scan: There is normal tracer uptake and excretion by the liver. There is normal visualization of the intrahepatic ducts, common bile duct, and gallbladder. There is normal tracer transit into the duodenum. CCK stimulation: There is pole contractile response of the gallbladder to CCK infusion. The calculated gallbladder ejection fraction is 16%; normal values are above 35%. There is bile reflux into the stomach. IMPRESSION: 1. Normal filling of gallbladder. No evidence for acute cholecystitis. 2. Poor contractile response of gallbladder to CCK stimulation, consistent with gallbladder dyskinesia. 3. Bile reflux into the stomach. Dictated by: Roman Lindo M.D. on 08/29/2023 at 10:04 Approved by: Roman Lindo M.D. on 08/29/2023 at 10:06
== END ==
PROVIDERS: PCP Family Medicine; Referring Provider Nurse Practitioner Family; Visit Provider Nurse Practitioner Family
DX: R10.11 Right upper quadrant pain (principal); R19.7 Diarrhea, unspecified
CPT/HCPCS: 78227; A9537; J2805

== ENCOUNTER → 2024-03-03 09:10 | Outpatient (CLI) | payer OTHER, SELFPAY ==
--- NOTE | 2024-03-03 09:11 | DI.MG.S_ITS ---
BILATERAL DIGITAL DIAGNOSTIC MAMMOGRAM 3D/2D: 03/03/2024 CLINICAL: Left breast lumps. Comparison is made to exams dated: 04/12/2022 mammogram - [facility] [place], 06/22/2019 ultrasound, 06/22/2019 ultrasound [facility], and 04/12/2022 ultrasound - [facility] [place]. The breasts are almost entirely fatty (category a/<25% glandular tissue). A BB marker was placed in the areas of clinical concern in the left breast, and no mammographic abnormality is identified. No significant masses, calcifications, or other findings are seen in either breast. IMPRESSION: INCOMPLETE: NEED ADDITIONAL IMAGING EVALUATION No mammographic abnormality in the area of clinical concern in the left breast. Recommend further evaluation with targeted breast ultrasound, which will immediately follow this exam. Based on the Tyrer Cuzick model (a risk assessment model) the patient's lifetime risk is 11.6% and her 10 year risk is 0.8%. According to the ACR, ACS, and NCCN guidelines, an annual breast MRI exam along with mammogram is recommended if the patient's lifetime risk is 20% or greater. This exam was interpreted at Station ID: [id number]. NOTE: For mammograms, a report in lay terms will be sent to the patient. Approximately 15% of breast malignancies will not be visualized mammographically. In the management of a palpable breast mass, a negative mammogram must not discourage biopsy of a clinically suspicious lesion. Electronically Signed By: Amie Torres M.D., Ph.D. eb/:03/03/2024 10:02:40 letter sent: Additional Imaging Needed ACR BI-RADS Category 0: Incomplete: Need Additional Imaging Evaluation
--- NOTE | 2024-03-03 09:11 | DI.US.S_ITS ---
LIMITED ULTRASOUND OF LEFT BREAST AND AXILLA: 03/03/2024 CLINICAL: Palpable left breast lump. Comparison is made to exams dated: 03/03/2024 mammogram - [facility], 04/12/2022 ultrasound, 04/12/2022 mammogram - [facility], 06/22/2019 ultrasound, and 08/05/2014 ultrasound - [facility]. Real-time ultrasound of the left breast 2 o'clock, and axilla regions was performed. Paredes scale images of the real-time examination were reviewed. No sonographic abnormality is seen in the area of clinical concern in left axilla and at 2 o'clock, 15 cm from the nipple. IMPRESSION: NEGATIVE No sonographic abnormality in the areas of clinical concern. No mammographic or sonographic evidence of malignancy. Recommend routine screening mammogram starting at age 40. Clinical follow-up is also recommended, and further management of palpable abnormalities or other focal signs or symptoms should be based on the results of clinical evaluation. If palpable abnormality or other concerning symptom persists or progresses, further clinical evaluation should be considered. Findings and recommendations were conveyed to the patient during today's evaluation. This exam was interpreted at Station ID: [id number]. Electronically Signed By: Amie Torres M.D., Ph.D. eb/:03/03/2024 10:25:29 letter sent: Clinical Evaluation ACR BI-RADS Category 1: Negative
== END ==
PROVIDERS: PCP Family Medicine; Referring Provider Family Medicine; Visit Provider Family Medicine
DX: R92.2 Inconclusive mammogram (principal); N63.20 Unspecified lump in the left breast, unspecified quadrant; R92.313 Mammographic fatty tissue density, bilateral breasts
CPT/HCPCS: 76642; 77066; G0279

== ENCOUNTER → 2024-03-23 10:23 | Outpatient (CLI) | payer OTHER, SELFPAY ==
--- NOTE | 2024-03-23 10:24 | DI.RAD.S_ITS ---
PROCEDURE: XR CHEST 2V INDICATIONS: URI. check for pneumonia. TECHNIQUE: 2 views of the chest were acquired. COMPARISON: [facility], CR, XR CHEST 1V, 01/08/2022, 12:46. FINDINGS: Surgical changes and devices: None. Lungs and pleura: Lungs are clear. No pleural effusions or pneumothorax. Mediastinum: Mediastinal contours are normal. Heart size is normal. Bones and chest wall: No suspicious bony abnormalities. Soft tissues appear unremarkable. IMPRESSION: No acute cardiopulmonary abnormality is seen. Approved by: Shree Parrish M.D. on 03/23/2024 at 11:40
== END ==
LOC: RAD 10:24
PROVIDERS: PCP Family Medicine; Referring Provider Family Medicine; Visit Provider Family Medicine
DX: R05.9 Cough, unspecified (principal)
CPT/HCPCS: 71046

== ENCOUNTER 2024-03-24 17:44 | Emergency (ER) | payer OTHER, SELFPAY ==
[2024-03-24 17:55] VITALS: BP 165/105; PULSE 101; RESP 18; TEMP 37.6; O2SAT 96; BMI 36.6
--- NOTE | 2024-03-24 18:01 | DI.RAD.S_ITS ---
PROCEDURE: XR CHEST 1V INDICATIONS: Shortness of breath TECHNIQUE: One view of the chest was acquired. COMPARISON: [facility], ONES[place], XR CHEST 2V, 03/23/2024, 10:25. [facility], CR, XR CHEST 1V, 01/08/2022, 12:46. FINDINGS: Surgical changes and devices: None. Lungs and pleura: Lungs are clear. No pleural effusions or pneumothorax. Mediastinum: Mediastinal contours appear normal. Heart size is normal. Bones and chest wall: No suspicious bony lesions. Overlying soft tissues appear unremarkable. IMPRESSION: No acute cardiopulmonary abnormality is seen. Dictated by: Bennie Pardo M.D. on 03/24/2024 at 18:27 Approved by: Bennie Pardo M.D. on 03/24/2024 at 18:28
[2024-03-24 18:15] LABS: Add Manual Diff / Slide Review NO; Basophils Absolute Auto 100 /uL (0-100); Basophils Percent Auto 0.6 % (0-2); Eosinophils Absolute Auto 200 /uL (0-450); Hematocrit 47.6 % (36-46); Hemoglobin 15.5 g/dL (12.0-16.0); Lymphocytes Absolute Auto 2000 /uL (1100-4500); Lymphocytes Percent Auto 11.2 % (25-40); Mean Corpuscular HGB Conc 32.6 % (30-36); Mean Corpuscular Hemoglobin 27.1 PG (26-34); Mean Corpuscular Volume 83.1 fL (80-100); Monocytes Absolute Auto 1300 /uL (0-900); Monocytes Percent Auto 7.1 % (3-14); Neutrophils Absolute Auto 14200 /uL (1500-7000); Neutrophils Percent Auto 80.1 % (50-75); Platelet Count 330 X10^3/uL (150-400); Red Blood Cell Count 5.73 X10^6/uL (4.0-5.2); White Blood Cell Count 17.7 X10^3/uL (4.5-11.0)
[2024-03-24 18:33] LABS: Alanine Aminotransferase 34 IU/L (<35); Albumin 4.1 g/dL (3.5-5.0); Alkaline Phosphatase 58 U/L (38-126); Aspartate Aminotransferase 50 IU/L (14-36); BUN Creatinine Ratio 13.8 (6-22); Bilirubin Total 0.7 mg/dL (0.2-1.3); Blood Urea Nitrogen 11 mg/dL (7-17); Calcium 8.6 mg/dL (8.4-10.2); Carbon Dioxide 28 mmol/L (22-32); Chloride 104 mmol/L (98-107); Estimated Glomerular Filt Rate > 60 mL/min (>60); Glucose 92 mg/dL (70-100); Potassium 4.1 mmol/L (3.4-5.1); Sodium 135 mmol/L (137-145); Total Protein 8.1 g/dL (6.3-8.2)
[2024-03-24 18:34] LABS: HEMOLYSIS 68 (0-50)
[2024-03-24 19:08] LABS: Influenza A - CEPHEID Flu A NEGATIVE (NEGATIVE); Influenza B - CEPHEID Flu B NEGATIVE (NEGATIVE); Respiratory Syncytial Virus Negative (Negative)
[2024-03-24 19:10] LABS: COVID-19 CEPHEID 4-PLEX PCR Negative (Negative)
--- NOTE | 2024-03-24 20:00 | ED.URI ---
HPI - URI/Sore Throat General Chief Complaint: Upper Respiratory Symptoms Stated Complaint: sent by Dr Du, fever, earache, laryngitis Time Seen by Provider: 03/24/24 19:59 Source: patient Mode of arrival: Ambulatory History of Present Illness HPI Narrative: 33-year-old female with recent course of amoxicillin for strep throat completed 8 days ago, now with new cough 4-5 days increasing, was seen by her PCP yesterday, advised to recheck in the emergency department she was not feeling better, here for further evaluation. She is still coughing. She denies chest pain or shortness of breath. also with recent new cough. No history of asthma or wheezing. No history of chronic lung disease or heart disease. No history of known diabetes. Related Data Home Medications Medication Instructions Recorded Confirmed chlorthalidone 25 mg tablet 12.5 mg PO QAM 11/15/23 12/19/23 Previous Rx's Medication Instructions Recorded ketoconazole 2 % topical cream See Rx Instructions topical BID 12/19/23 #60 grams triamcinolone acetonide 0.1 % See Rx Instructions topical BID 12/19/23 topical cream #80 grams rizatriptan 10 mg tablet 10 mg PO Q2H PRN migraine headache 12/31/23 #10 tabs galcanezumab-gnlm 120 mg/mL 120 mg SUBCUT QMONTH #1 mL 02/17/24 subcutaneous pen injector (Emgality Pen) albuterol sulfate 90 mcg/actuation 2 puff inhalation Q6H PRN 03/24/24 aerosol inhaler shortness of breath or wheezing #8.5 grams benzonatate 200 mg capsule 200 mg PO BID-TID PRN cough #20 03/24/24 caps Allergies Allergy/AdvReac Type Severity Reaction Status Date / Time No Known Drug Allergies Allergy Verified 03/24/24 17:59 Review of Systems Review of Systems Narrative: See HPI Patient History Medical History (Updated 03/24/24 @ 20:11 by Andrade Garcia MD) Abnormal uterine bleeding (AUB) Migraine Pneumonia involving right lung section wound complication Menorrhagia with irregular cycle Depression (~2008) MRSA (methicillin resistant Staphylococcus aureus) (~2009) Chicken pox (~1997) History of irregular menstrual cycles Surgical History History of dilatation and curettage History of tubal ligation Status post delivery (11/21/16) Status post delivery (01/20/14) Status post delivery (06/20/11) Family History Father Age: 69 Hypertension Social History marital status: household members: spouse and children Smoking Status: Former smoker alcohol intake: never substance use type: does not use Smoking Status: Former smoker alcohol intake frequency: a few times a month Exam Narrative Exam Narrative: GENERAL: Well-developed patient, in mild distress. HEAD: Atraumatic. Normocephalic. EYES: Pupils equal round and reactive. Extraocular motions intact. No scleral icterus. No injection or drainage. ENT: Nose without bleeding, purulent drainage. Throat without erythema, tonsillar hypertrophy or exudate. Airway patent. NECK: Trachea midline. Non tender CARDIOVASCULAR: Regular rate and rhythm without murmurs, gallops, or rubs. RESPIRATORY: Clear to auscultation. Breath sounds equal bilaterally. No wheezes, rales, or rhonchi. GASTROINTESTINAL: Abdomen soft, non-tender, nondistended. EXTREMITIES: No edema or joint tenderness. BACK: Nontender without deformity or crepitance. No flank tenderness. NEURO: AOx3. Motor functions grossly nonfocal SKIN: No rash or erythema of visible areas Initial Vital Signs Initial Vital Signs: Vital Signs Temperature 99.7 F H 03/24/24 17:55 Pulse Rate 101 H 03/24/24 17:55 Respiratory Rate 18 03/24/24 17:55 Blood Pressure 165/105 H 03/24/24 17:55 Pulse Oximetry 96 03/24/24 17:55 Oxygen Delivery Method Room Air 03/24/24 17:55 Course Orders Ordered: ED Orders 03/24/24 18:01 XR chest 1V Stat 03/24/24 18:06 Complete Blood Count AUTO DIFF Stat Comprehensive Metabolic Panel Stat Covid-19 + FLU A/B + RSV - PCR Stat Vital Signs Vital signs: Vital Signs - 8 hr 03/24/24 17:55 Temperature 99.7 F H Pulse Rate 101 H Respiratory Rate 18 Blood Pressure 165/105 H Pulse Oximetry 96 Oxygen Delivery Method Room Air MDM - URI/Sore Throat Lab Data Attestation: I reviewed the patient's lab results. Lab results narrative: White blood cell count 77763, hemoglobin 15, platelets [id number]. CMP unremarkable. Flu negative, COVID negative, RSV negative. 03/24/24 18:06 03/24/24 18:06 Labs: Lab Results 03/24/24 Range/Units 18:06 WBC 17.7 H (4.5-11.0) X10^3/uL RBC 5.73 H (4.0-5.2) X10^6/uL Hgb 15.5 (12.0-16.0) g/dL Hct 47.6 H (36-46) % MCV 83.1 (80-100) fL MCH 27.1 (26-34) PG MCHC 32.6 (30-36) % RDW 13.0 (11.6-14.8) % Plt Count 330 (150-400) X10^3/uL Neut % (Auto) 80.1 H (50-75) % Lymph % (Auto) 11.2 L (25-40) % [place] % (Auto) 7.1 (3-14) % Eos % (Auto) 1.0 L (2-4) % Baso % (Auto) 0.6 (0-2) % Neut # (Auto) 62318 H (4457-5557) /uL Lymph # (Auto) 2000 (3232-5412) /uL [place] # (Auto) 1300 H (0-900) /uL Eos # (Auto) 200 (0-450) /uL Baso # (Auto) 100 (0-100) /uL Sodium 135 L (137-145) mmol/L Potassium 4.1 (3.4-5.1) mmol/L Chloride 104 (98-107) mmol/L Carbon Dioxide 28 (22-32) mmol/L BUN 11 (7-17) mg/dL Creatinine 0.80 (0.52-1.04) mg/dL Estimated GFR > 60 (>60) mL/min BUN/Creatinine Ratio 13.8 (6-22) Glucose 92 (70-100) mg/dL Calcium 8.6 (8.4-10.2) mg/dL Total Bilirubin 0.7 (0.2-1.3) mg/dL AST 50 H (14-36) IU/L ALT 34 (<35) IU/L Alkaline Phosphatase 58 (38-126) U/L Total Protein 8.1 (6.3-8.2) g/dL Albumin 4.1 (3.5-5.0) g/dL Globulin 4.0 (1.7-4.1) g/dL Albumin/Globulin Ratio 1.0 (1.0-2.8) SARS-CoV-2 (PCR) Negative (Negative) Influenza A (RT-PCR) Flu a negative (NEGATIVE) Influenza B (RT-PCR) Flu b negative (NEGATIVE) RSV (PCR) Negative (Negative) Imaging Data Chest x-ray: Radiologist's Impression: [address] [address] XRay Report Signed Patient: Thania Fonseca MR#: [id number] : 1990 Acct:[id number] Age/Sex: 33 / F Date of Service: 03/24/24 Loc: ED Accession Number: [id number] Procedure: XR chest 1V Ordering Provider: Mariela Larkin MD PROCEDURE: XR CHEST 1V INDICATIONS: Shortness of breath TECHNIQUE: One view of the chest was acquired. COMPARISON: [facility], CR, XR CHEST 2V, 03/23/2024, 10:25. [facility], CR, XR CHEST 1V, 01/08/2022, 12:46. FINDINGS: Surgical changes and devices: None. Lungs and pleura: Lungs are clear. No pleural effusions or pneumothorax. Mediastinum: Mediastinal contours appear normal. Heart size is normal. Bones and chest wall: No suspicious bony lesions. Overlying soft tissues appear unremarkable. IMPRESSION: No acute cardiopulmonary abnormality is seen. Dictated by: Bennie Pardo M.D. on 03/24/2024 at 18:27 Approved by: Bennie Pardo M.D. on 03/24/2024 at 18:28 [facility] Narrative Medical decision making narrative: 33-year-old female with new cough for the last few days after course of amoxicillin for strep throat previous weeks, afebrile, sirs screen negative, lungs clear, no respiratory distress. Chest x-ray sent from triage, negative per radiology report. Swabs for flu, COVID, RSV were negative. We discussed cough control measures, she would like to try Tessalon, we would like to try inhaler, we will send to her pharmacy. Leukocytosis noted, nonspecific, suspected new viral illness after recent strep infection. Symptomatic treatment discussed for now. Recheck with PCP or here if not improving in the next 2-3 days. Discharged home with Discharge Plan Departure Patient Disposition: Home Clinical Impression: Acute upper respiratory infection Activity Restrictions/Additional Instructions: Recent course of amoxicillin for strep infection of the throat, now with a few days' duration of cough. No fever on triage but reported fevers. Chest x-ray was negative per radiology report. Swabs for influenza and COVID and RSV viruses were negative. Reassuring lung exam, no respiratory distress, normal oxygenation on room air. We discussed the anti cough measures. You were interested in trial of prescription anti cough medication Tessalon, sent to your pharmacy. You were interested in a trial of inhaler to control cough, sent to your pharmacy. Recheck with your regular doctor if not improving in the next 2-3 days. Return to this/nearest emergency department for any change worsening symptoms or any concerns prior Prescriptions: New benzonatate 200 mg capsule 200 mg PO BID-TID PRN (Reason: cough) Qty: 20 0RF albuterol sulfate 90 mcg/actuation HFA aerosol inhaler 2 puff inhalation Q6H PRN (Reason: shortness of breath or wheezing) Qty: 8.5 0RF No Action rizatriptan 10 mg tablet 10 mg PO Q2H MDD 20mg PRN (Reason: migraine headache) Qty: 10 0RF Emgality Pen 120 mg/mL pen injector 120 mg SUBCUT QMONTH Qty: 1 3RF chlorthalidone 25 mg tablet 12.5 mg PO QAM triamcinolone acetonide 0.1 % cream See Rx Instructions topical BID Qty: 80 1RF Rx Instructions: 1 mg topically bid TOP BID; ketoconazole 2 % cream See Rx Instructions topical BID Qty: 60 0RF Rx Instructions: 1mg toppically bid TOP BID; Referrals: Juan Antonio Mack MD [Primary Care Provider] - Stand Alone Forms: Patient Portal/API/Survey
[2024-03-24 20:17] VITALS: BP 140/63; PULSE 99; RESP 19; TEMP 37.4; O2SAT 98
== END 2024-03-24 20:23 | disposition home or self-care (01) ==
PROVIDERS: Emergency Medicine; Emergency Provider Emergency Medicine; PCP Family Medicine
DX: J06.9 Acute upper respiratory infection, unspecified (principal); R06.02 Shortness of breath; R05.9 Cough, unspecified
CPT/HCPCS: 0241U; 36415; 71045; 80053; 85025; 99284

== ENCOUNTER → 2024-04-09 10:01 | Outpatient (CLI) | payer OTHER, SELFPAY | PROVIDERS: PCP Family Medicine; Visit Provider Physician Assistant | DX: J02.0 Streptococcal pharyngitis (principal) | CPT/HCPCS: 87070 ==

== ENCOUNTER → 2024-04-14 12:41 | Outpatient (CLI) | payer OTHER, SELFPAY ==
--- NOTE | 2024-04-14 12:42 | DI.CT.S_ITS ---
PROCEDURE: CT SOFT TISSUE NECK W CON INDICATIONS: Lymphadenopathy, cervical - chills, fatigue TECHNIQUE: After the administration of intravenous contrast, 3.0 mm axial sections acquired from the sella to the aortic arch. Additional oblique axial 3.0 mm sections acquired through the pharynx. 3 mm thick coronal and sagittal reformats were generated. For radiation dose reduction, the following was used: automated exposure control. COMPARISON: None. FINDINGS: Image quality: Excellent. Lymph nodes: No enlarged lymph nodes seen throughout the neck. Few mildly prominent lymph nodes. For example a right 2A lymph node measuring 9 mm in short axis (2/44). A left 2A lymph node measuring 8 mm in short axis (2/42). Vessels: Visualized vasculature appears patent. Neck spaces: The oropharynx, nasopharynx, and pharynx demonstrate no mucosal lesions. The vocal cords, false vocal cords, pyriform sinuses, epiglottis, vallecula, and tongue base all appear normal. Extramucosal spaces appear unremarkable. Glands: The parotid and submandibular glands appear normal. Thyroid gland demonstrates no significant abnormality. Miscellaneous: Visualized brain and orbits appear normal. Lung apices appear clear. Superficial soft tissues appear normal. Bones: No suspicious bony lesions. Mild diffuse paranasal sinus mucosal thickening. The mastoid air cells are clear. IMPRESSION: No enlarged cervical lymph nodes within the neck. Few mildly prominent cervical lymph nodes are nonspecific and likely within normal limits. Follow-up imaging can be obtained as clinically indicated. Dictated by: Kris Markham M.D. on 04/14/2024 at 14:07 Approved by: Kris Markham M.D. on 04/14/2024 at 14:13
== END ==
LOC: CT 12:41
PROVIDERS: PCP Family Medicine; Referring Provider Physician Assistant; Visit Provider Physician Assistant
DX: R05.9 Cough, unspecified (principal); R59.0 Localized enlarged lymph nodes
CPT/HCPCS: 70491; Q9967

== ENCOUNTER 2024-04-16 13:47 | Emergency (ER) | payer BC, SELFPAY ==
[2024-04-16 13:59] VITALS: BP 179/103; PULSE 79; RESP 17; TEMP 36.6; O2SAT 99; BMI 37.5
--- NOTE | 2024-04-16 14:52 | ED_ITS ---
HPI - Extremity Problem General Chief complaint: Extremity Problem,Nontraumatic Stated complaint: Left arm pain,swollen lymphnode Time Seen by Provider: 04/16/24 14:04 Source: patient Mode of arrival: Ambulatory History of Present Illness HPI Narrative: Patient was a 33-year-old female who was sent to the emergency department for a CT scan of her chest after reporting left-sided lymphadenopathy for the past several days/weeks. She has had a lump in her left breast that has been evaluated over the past several years with mammograms. All of which have been unremarkable. She has had lymphadenopathy on her left side off and on. She was also been having occasional upper respiratory infections. She was having discomfort in her left shoulder and left neck. Had a CT scan performed as an outpatient by her primary doctor on April 14. Was told that she had prominent lymph nodes in the cervical region but no other acute pathology. She was reporting swelling and discomfort to her left armpit and discomfort down her left arm. She was scheduled to have a CT scan of her chest performed on Saturday provided by her primary doctor however she messaged her primary doctor today because of her symptoms she was advised to come to the emergency department to obtain the CT scan more emergently. Related Data Previous Rx's Medication Instructions Recorded rizatriptan 10 mg tablet 10 mg PO Q2H PRN migraine headache 12/31/23 #10 tabs galcanezumab-gnlm 120 mg/mL 120 mg SUBCUT QMONTH #1 mL 02/17/24 subcutaneous pen injector (Emgality Pen) albuterol sulfate 90 mcg/actuation 2 puff inhalation Q6H PRN 03/24/24 aerosol inhaler shortness of breath or wheezing #8.5 grams benzonatate 200 mg capsule 200 mg PO BID-TID PRN cough #20 03/24/24 caps Allergies Allergy/AdvReac Type Severity Reaction Status Date / Time No Known Drug Allergies Allergy Verified 04/16/24 14:07 Review of Systems Review of Systems ROS Unobtainable: All systems reviewed & are unremarkable except as noted in HPI and below Patient History Medical History Abnormal uterine bleeding (AUB) Migraine Pneumonia involving right lung section wound complication Menorrhagia with irregular cycle Depression (~2008) MRSA (methicillin resistant Staphylococcus aureus) (~2009) Chicken pox (~1997) History of irregular menstrual cycles Surgical History History of dilatation and curettage History of tubal ligation Status post delivery (11/21/16) Status post delivery (01/20/14) Status post delivery (06/20/11) Family History Father Age: 69 Hypertension Social History marital status: household members: spouse and children Smoking Status: Former smoker alcohol intake: never substance use type: does not use Smoking Status: Former smoker alcohol intake frequency: a few times a month Exam Initial Vital Signs Initial Vital Signs: Vital Signs Temperature 98 F 04/16/24 13:59 Pulse Rate 79 04/16/24 13:59 Respiratory Rate 17 04/16/24 13:59 Blood Pressure 179/103 H 04/16/24 13:59 Pulse Oximetry 99 04/16/24 13:59 Oxygen Delivery Method Room Air 04/16/24 13:59 Const General: cooperative, healthy appearing and comfortable HENMS Head: normal to inspection and normocephalic Neck Other: No left-sided anterior or posterior cervical lymphadenopathy felt. No supraclavicular lymphadenopathy felt. Several sub cm painful freely movable lymph nodes in the left armpit noticed. Resp Effort & Inspection: normal respiratory effort Auscultation: clear to auscultation bilaterally Cardio Rate: regular rate Rhythm: regular rhythm Skin General: no rashes or lesions noted Neuro General: patient alert, patient awake and moves all extremities Extrem General: normal to inspection and capillary refill normal Course Orders Ordered: ED Orders 04/16/24 14:52 CT chest w con Stat 04/16/24 15:17 Basic Metabolic Panel Stat Complete Blood Count AUTO DIFF Stat Vital Signs Vital signs: Vital Signs - 8 hr 04/16/24 13:59 Temperature 98 F Pulse Rate 79 Respiratory Rate 17 Blood Pressure 179/103 H Pulse Oximetry 99 Oxygen Delivery Method Room Air MDM - Extremity (Nontraumatic) Lab Data 04/16/24 15:17 04/16/24 15:17 Labs: Lab Results 04/16/24 Range/Units 15:17 WBC 9.5 (4.5-11.0) X10^3/uL RBC 5.45 H (4.0-5.2) X10^6/uL Hgb 15.0 (12.0-16.0) g/dL Hct 44.9 (36-46) % MCV 82.4 (80-100) fL MCH 27.5 (26-34) PG MCHC 33.4 (30-36) % RDW 12.8 (11.6-14.8) % Plt Count 329 (150-400) X10^3/uL Neut % (Auto) 69.3 (50-75) % Lymph % (Auto) 20.7 L (25-40) % [place] % (Auto) 6.6 (3-14) % Eos % (Auto) 2.5 (2-4) % Baso % (Auto) 0.9 (0-2) % Neut # (Auto) 6600 (8866-5596) /uL Lymph # (Auto) 2000 (3111-9941) /uL [place] # (Auto) 600 (0-900) /uL Eos # (Auto) 200 (0-450) /uL Baso # (Auto) 100 (0-100) /uL Sodium 135 L (137-145) mmol/L Potassium 3.5 (3.4-5.1) mmol/L Chloride 103 (98-107) mmol/L Carbon Dioxide 25 (22-32) mmol/L BUN 15 (7-17) mg/dL Creatinine 0.78 (0.52-1.04) mg/dL Estimated GFR > 60 (>60) mL/min BUN/Creatinine Ratio 19.2 (6-22) Glucose 90 (70-100) mg/dL Calcium 9.0 (8.4-10.2) mg/dL Imaging Data CT scan - chest: Radiologist's Impression: PROCEDURE: CT CHEST W CON INDICATIONS: Left-sided lymphadenopathy TECHNIQUE: After the administration of intravenous contrast, 5 mm thick sections acquired from the pulmonary apices to the posterior costophrenic angles. 1 mm axial lung, 5 mm thick coronal and sagittal reformats and 7 mm axial MIP were acquired. For radiation dose reduction, the following was used: automated exposure control, adjustment of mA and/or kV according to patient size. COMPARISON: [facility], CT, CT SOFT TISSUE NECK W CON, 04/14/2024, 12:55. FINDINGS: Image quality: Diagnostic. Lower Neck: No enlarged lymph nodes. Thyroid: No thyroid nodules which require sonographic follow up, per consensus guidelines. Axillae: No enlarged lymph nodes. Chest Wall: Unremarkable. Bones: Unremarkable. Lungs and Pleura: No pneumothorax or pleural effusions. No consolidation or suspicious nodules. Heart: Heart size is normal. No pericardial effusion. Thoracic Vessels: The aorta and pulmonary arteries demonstrate normal size. Mediastinum and Alix: No enlarged lymph nodes. Esophagus: No wall thickening. No hiatal hernia. Upper Abdomen: Visualized upper abdomen solid organs and bowel loops appear normal. IMPRESSION: Normal for age, no adenopathy found. MDM Narrative Medical decision making narrative: CT scan shows no abnormal lymphadenopathy although she does have palpable lymphadenopathy in her left axillary region. No indication for antibiotics. Recommended the patient contact her primary provider to let them know that she had the CT scan done today and to discuss further evaluation and treatment. Discharge Plan Departure Patient Disposition: Home Clinical Impression: Lymphadenopathy Instructions: DI for Lymphadenopathy Activity Restrictions/Additional Instructions: Your CT scan today is very reassuring. There are no signs of abnormally large lymph nodes. I recommend that you contact your primary care doctor for a follow-up. Return to the emergency department for new or worsening symptoms. Prescriptions: No Action rizatriptan 10 mg tablet 10 mg PO Q2H MDD 20mg PRN (Reason: migraine headache) Qty: 10 0RF Emgality Pen 120 mg/mL pen injector 120 mg SUBCUT QMONTH Qty: 1 3RF benzonatate 200 mg capsule 200 mg PO BID-TID PRN (Reason: cough) Qty: 20 0RF albuterol sulfate 90 mcg/actuation HFA aerosol inhaler 2 puff inhalation Q6H PRN (Reason: shortness of breath or wheezing) Qty: 8.5 0RF Referrals: Juan Antonio Mack MD [Primary Care Provider] - Stand Alone Forms: Patient Portal/API/Survey
[2024-04-16 15:32] LABS: Add Manual Diff / Slide Review NO; Basophils Absolute Auto 100 /uL (0-100); Basophils Percent Auto 0.9 % (0-2); Eosinophils Absolute Auto 200 /uL (0-450); Eosinophils Percent Auto 2.5 % (2-4); Hematocrit 44.9 % (36-46); Lymphocytes Absolute Auto 2000 /uL (1100-4500); Lymphocytes Percent Auto 20.7 % (25-40); Mean Corpuscular HGB Conc 33.4 % (30-36); Mean Corpuscular Hemoglobin 27.5 PG (26-34); Mean Corpuscular Volume 82.4 fL (80-100); Monocytes Absolute Auto 600 /uL (0-900); Monocytes Percent Auto 6.6 % (3-14); Neutrophils Absolute Auto 6600 /uL (1500-7000); Neutrophils Percent Auto 69.3 % (50-75); Platelet Count 329 X10^3/uL (150-400); Red Blood Cell Count 5.45 X10^6/uL (4.0-5.2); Red Cell Distribution Width 12.8 % (11.6-14.8); White Blood Cell Count 9.5 X10^3/uL (4.5-11.0)
[2024-04-16 15:41] LABS: BUN Creatinine Ratio 19.2 (6-22); Blood Urea Nitrogen 15 mg/dL (7-17); Carbon Dioxide 25 mmol/L (22-32); Chloride 103 mmol/L (98-107); Estimated Glomerular Filt Rate > 60 mL/min (>60); Glucose 90 mg/dL (70-100); HEMOLYSIS < 15 (0-50); Potassium 3.5 mmol/L (3.4-5.1); Sodium 135 mmol/L (137-145)
[2024-04-16 16:24] VITALS: BP 145/88; PULSE 58; RESP 18; O2SAT 98
== END 2024-04-16 16:24 | disposition home or self-care (01) ==
PROVIDERS: Emergency Provider Emergency Medicine; PCP Family Medicine
DX: R59.1 Generalized enlarged lymph nodes (principal); Z87.891 Personal history of nicotine dependence
CPT/HCPCS: 36415; 71260; 80048; 85025; 99283; 99284; Q9967

== ENCOUNTER → 2024-04-23 10:34 | Outpatient (CLI) | payer BC, SELFPAY ==
--- NOTE | 2024-04-23 10:35 | DI.RAD.S_ITS ---
PROCEDURE: XR THORACIC SPINE 3V INDICATIONS: neck and back pain TECHNIQUE: 3 views of the thoracic spine were acquired. COMPARISON: None. FINDINGS: Bones: No fractures or dislocations. No suspicious bony lesions. 12 pairs of ribs are noted, and appear intact where visualized. Minimal disc space narrowing at the upper and middle thirds of the thoracic spine. Soft tissues: No paravertebral stripe thickening. 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 No prior trauma found. Dictated by: Luis Ace M.D. on 04/23/2024 at 12:54 Approved by: Luis Ace M.D. on 04/23/2024 at 12:55
--- NOTE | 2024-04-23 10:35 | DI.RAD.S_ITS ---
PROCEDURE: XR CERVICAL SPINE 2V OR 3V INDICATIONS: neck and back pain TECHNIQUE: 3 view(s) of the cervical spine were acquired. COMPARISON: None. FINDINGS: Bones: No fractures or dislocations to the T1 level. The lateral masses of C1 appear intact on the odontoid view. No suspicious bony lesions. Soft tissues: No prevertebral soft tissue swelling. IMPRESSION: No displaced fracture or traumatic subluxation. Dictated by: Luis Ace M.D. on 04/23/2024 at 12:54 Approved by: Luis Ace M.D. on 04/23/2024 at 12:54
== END ==
LOC: RAD 10:35
PROVIDERS: PCP Family Medicine; Referring Provider Family Medicine; Visit Provider Family Medicine
DX: M54.2 Cervicalgia (principal); M54.6 Pain in thoracic spine
CPT/HCPCS: 72040; 72072

== ENCOUNTER → 2024-05-14 10:35 | Outpatient (CLI) | payer BC, SELFPAY ==
--- NOTE | 2024-05-14 10:36 | DI.US.S_ITS ---
PROCEDURE: US PELVIC COMPLETE INDICATIONS: Check IUD placement TECHNIQUE: Real-time scanning was performed of the pelvic organs, with image documentation. Additional endovaginal scanning was necessary due to incomplete visualization of the adnexal and endometrial structures by transabdominal scanning. COMPARISON: [facility], US, US PELVIC COMPLETE, 11/15/2023, 9:01. FINDINGS: Uterus: Uterus is anteverted and normal in size at 9.6 x 3.8 x 5.2 cm. The myometrium is homogeneous. The endometrium measures 10.0 mm combined thickness. Intrauterine device in the lower uterine segment and endocervical canal Ovaries: Right ovary not visualized. Left ovary measures 2.9 x 2.8 x 1.6 cm, 6.8 cc. Other: No pathologic free abdominal or pelvic fluid. IMPRESSION: Intrauterine device in the lower uterine segment and endocervical canal Approved by: Shree Parrish M.D. on 05/14/2024 at 17:05
== END ==
LOC: US 10:36
PROVIDERS: Family Provider Family Medicine; PCP Family Medicine; Referring Provider Obstetrics & Gynecology; Visit Provider Obstetrics & Gynecology
DX: R10.9 Unspecified abdominal pain (principal); Z30.431 Encounter for routine checking of intrauterine contraceptive device
CPT/HCPCS: 76830; 76856

== ENCOUNTER → 2024-05-21 12:39 | Outpatient (CLI) | payer BC, SELFPAY | LOC: PHYS 12:40 | PROVIDERS: Family Provider Family Medicine; PCP Family Medicine; Referring Provider Family Medicine; Visit Provider Family Medicine | DX: M54.6 Pain in thoracic spine (principal); M54.2 Cervicalgia; R59.1 Generalized enlarged lymph nodes; M79.2 Neuralgia and neuritis, unspecified | CPT/HCPCS: 95886; 95910 ==

== ENCOUNTER → 2024-06-10 09:08 | Outpatient (CLI) | payer BC, SELFPAY ==
[2024-06-10 10:15] LABS: Add Manual Diff / Slide Review NO; Basophils Absolute Auto 100 /uL (0-100); Basophils Percent Auto 0.6 % (0-2); Eosinophils Absolute Auto 100 /uL (0-450); Eosinophils Percent Auto 1.6 % (2-4); Hematocrit 47.3 % (36-46); Hemoglobin 16.3 g/dL (12.0-16.0); Lymphocytes Absolute Auto 2200 /uL (1100-4500); Lymphocytes Percent Auto 25.8 % (25-40); Mean Corpuscular HGB Conc 34.4 % (30-36); Mean Corpuscular Hemoglobin 28.1 PG (26-34); Mean Corpuscular Volume 81.6 fL (80-100); Monocytes Absolute Auto 600 /uL (0-900); Monocytes Percent Auto 7.4 % (3-14); Neutrophils Absolute Auto 5500 /uL (1500-7000); Neutrophils Percent Auto 64.6 % (50-75); Platelet Count 363 X10^3/uL (150-400); Red Cell Distribution Width 12.9 % (11.6-14.8); White Blood Cell Count 8.5 X10^3/uL (4.5-11.0)
[2024-06-10 10:36] LABS: Hemoglobin A1C% w Est Avg Glu 5.7 % (4.0-6.0)
[2024-06-10 10:39] LABS: Alanine Aminotransferase 28 IU/L (<35); Albumin 4.8 g/dL (3.5-5.0); Albumin Globulin Ratio 1.5 (1.0-2.8); Alkaline Phosphatase 57 U/L (38-126); Aspartate Aminotransferase 33 IU/L (14-36); BUN Creatinine Ratio 19.5 (6-22); Bilirubin Total 0.7 mg/dL (0.2-1.3); Blood Urea Nitrogen 15 mg/dL (7-17); Calcium 9.5 mg/dL (8.4-10.2); Carbon Dioxide 27 mmol/L (22-32); Chloride 100 mmol/L (98-107); Cholesterol 301 mg/dL (140-199); Estimated Glomerular Filt Rate > 60 mL/min (>60); Globulin 3.1 g/dL (1.7-4.1); Glucose 105 mg/dL (70-100); HDL Cholesterol 52 mg/dL (40-60); HEMOLYSIS 23 (0-50); LDL Cholesterol Calculated 222 mg/dL (<100); Sodium 138 mmol/L (137-145); Total Protein 7.9 g/dL (6.3-8.2); Triglycerides 135 mg/dL (35-150)
== END ==
LOC: LAB 09:09
PROVIDERS: Family Provider Family Medicine; PCP Family Medicine; Referring Provider Physician Assistant; Visit Provider Physician Assistant
DX: Z13.6 Encounter for screening for cardiovascular disorders (principal); Z13.220 Encounter for screening for lipoid disorders; R73.01 Impaired fasting glucose; I34.0 Nonrheumatic mitral (valve) insufficiency; Z68.38 Body mass index [BMI] 38.0-38.9, adult
CPT/HCPCS: 36415; 80053; 80061; 83036; 84443; 85025

== ENCOUNTER → 2024-07-27 09:49 | Outpatient (CLI) | payer BC, SELFPAY ==
[2024-07-27 10:45] LABS: Hematocrit 47.1 % (36-46); Mean Corpuscular HGB Conc 33.9 % (30-36); Mean Corpuscular Hemoglobin 27.9 PG (26-34); Mean Corpuscular Volume 82.3 fL (80-100); Platelet Count 334 X10^3/uL (150-400); Red Blood Cell Count 5.73 X10^6/uL (4.0-5.2); Red Cell Distribution Width 12.8 % (11.6-14.8); White Blood Cell Count 8.8 X10^3/uL (4.5-11.0)
[2024-07-27 11:46] LABS: Neutrophils Absolute Manual 5984 /uL (3000-5900); Total Cells Counted 100
[2024-07-27 11:47] LABS: RBC Morphology Normal Morphology
== END ==
PROVIDERS: Family Provider Family Medicine; PCP Family Medicine; Referring Provider Physician Assistant; Visit Provider Physician Assistant
DX: D58.2 Other hemoglobinopathies (principal); R71.8 Other abnormality of red blood cells
CPT/HCPCS: 36415; 85025

== ENCOUNTER → 2024-08-11 07:53 | Outpatient (CLI) | payer BC, SELFPAY ==
[2024-08-11 09:34] LABS: Hemoglobin 15.7 g/dL (12.0-16.0); Mean Corpuscular Hemoglobin 28.2 PG (26-34); Mean Corpuscular Volume 82.9 fL (80-100); Platelet Count 323 X10^3/uL (150-400); Red Blood Cell Count 5.55 X10^6/uL (4.0-5.2); White Blood Cell Count 8.4 X10^3/uL (4.5-11.0)
[2024-08-11 09:55] LABS: Neutrophils Absolute Manual 6132 /uL (3000-5900); Total Cells Counted 100
[2024-08-11 09:56] LABS: RBC Morphology Normal Morphology
[2024-08-12 17:08] LABS: Erythropoietin 8.1 mIU/mL (2.6-18.5)
== END ==
PROVIDERS: Family Provider Family Medicine; PCP Family Medicine; Referring Provider Family Medicine; Visit Provider Family Medicine
DX: D75.1 Secondary polycythemia (principal)
CPT/HCPCS: 36415; 82668; 85025

== ENCOUNTER → 2024-08-13 09:41 | Outpatient (CLI) | payer BC, SELFPAY ==
[2024-08-13 10:52] LABS: Hematocrit 46.2 % (36-46); Hemoglobin 15.9 g/dL (12.0-16.0); Mean Corpuscular HGB Conc 34.5 % (30-36); Mean Corpuscular Hemoglobin 28.6 PG (26-34); Mean Corpuscular Volume 82.9 fL (80-100); Platelet Count 335 X10^3/uL (150-400); Red Blood Cell Count 5.57 X10^6/uL (4.0-5.2); Red Cell Distribution Width 12.7 % (11.6-14.8); White Blood Cell Count 8.5 X10^3/uL (4.5-11.0)
[2024-08-13 11:07] LABS: Neutrophils Absolute Manual 6120 /uL (3000-5900); RBC Morphology Normal Morphology; Total Cells Counted 100
[2024-08-13 11:35] LABS: Cholesterol 308 mg/dL (140-199); HDL Cholesterol 52 mg/dL (40-60); LDL Cholesterol Calculated 224 mg/dL (<100); Triglycerides 162 mg/dL (35-150)
== END ==
PROVIDERS: Physician Assistant; Family Provider Family Medicine; PCP Family Medicine; Referring Provider Family Medicine; Visit Provider Family Medicine
DX: R71.8 Other abnormality of red blood cells (principal); D72.820 Lymphocytosis (symptomatic); E78.5 Hyperlipidemia, unspecified
CPT/HCPCS: 80061; 81270; 85025

== ENCOUNTER → 2024-12-17 11:35 | Outpatient (CLI) | payer BC, SELFPAY ==
[2024-12-17 12:37] LABS: Hematocrit 43.9 % (36-46); Hemoglobin 14.9 g/dL (12.0-16.0); Mean Corpuscular HGB Conc 33.8 % (30-36); Mean Corpuscular Hemoglobin 28.3 PG (26-34); Mean Corpuscular Volume 83.5 fL (80-100); Platelet Count 287 X10^3/uL (150-400)
[2024-12-17 12:48] LABS: Add Manual Diff / Slide Review NO; Lymphocytes Absolute Auto 2000 /uL (1100-4500)
[2024-12-17 13:00] LABS: RBC Morphology Normal Morphology
[2024-12-17 13:02] LABS: Cholesterol 277 mg/dL (140-199); HDL Cholesterol 61 mg/dL (40-60); Triglycerides 124 mg/dL (35-150)
== END ==
PROVIDERS: Family Provider Family Medicine; PCP Family Medicine; Referring Provider Family Medicine; Visit Provider Physician Assistant
DX: E78.5 Hyperlipidemia, unspecified (principal); R50.9 Fever, unspecified; R59.9 Enlarged lymph nodes, unspecified; D75.1 Secondary polycythemia
CPT/HCPCS: 36415; 80061; 82668; 85025; 85651; 86140

== ENCOUNTER 2024-12-18 22:15 | Emergency (ER) | payer BC, SELFPAY ==
[2024-12-18 22:35] VITALS: BP 182/82; PULSE 71; RESP 18; TEMP 36.6; O2SAT 99; BMI 35.6
== END 2024-12-19 01:16 | disposition left against medical advice (07) ==
PROVIDERS: Emergency Provider Emergency Medicine; Family Provider Family Medicine; PCP Family Medicine
CPT/HCPCS: 99281

== ENCOUNTER 2024-12-22 14:23 | Emergency (ER) | payer BC, SELFPAY ==
[2024-12-22 14:30] VITALS: BP 167/83; PULSE 72; RESP 16; TEMP 37; O2SAT 96; BMI 35.6
--- NOTE | 2024-12-22 15:15 | ED.HA ---
HPI - Headache General Chief Complaint: Headache Stated Complaint: sent from [facility] [place] for GODINEZ and neck pain eval Time Seen by Provider: 12/22/24 15:02 Mode of arrival: Family Vehicle History of Present Illness HPI Narrative: 34-year-old woman with a history of hypertension, hyperlipidemia, migraine headaches, cervical radiculopathy with arm pain down the left side for at least a year, hematologic pathology with elevated red blood cell counts, seen by Oncology for your presents complaining of intermittent fevers for the last 4-5 days, sore throat, low-grade headache that does not feel like a typical migraine, intermittent episodes of dizziness. No nausea vomiting or diarrhea. She is not coughing not having chest pain. She notes that her neck and arm pain seems to be worse over the last couple of days. She talked to her primary care office and mentioned fever headache and arm pain and was told to come to the emergency department for further evaluation. Related Data Home Medications ?Medication ?Instructions ?Recorded ?Confirmed chlorthalidone 25 mg tablet 25 mg PO QAM 07/28/24 12/01/24 metoprolol succinate 25 mg 25 mg PO DAILY 07/28/24 12/01/24 tablet,extended release 24 hr Previous Rx's ?Medication ?Instructions ?Recorded rizatriptan 10 mg tablet 10 mg PO Q2H PRN migraine headache 12/31/23 #10 tabs albuterol sulfate 90 mcg/actuation 2 puff inhalation Q6H PRN 03/24/24 aerosol inhaler shortness of breath or wheezing #8.5 grams ondansetron 4 mg disintegrating 4 mg PO Q8H PRN nausea and 08/26/24 tablet vomiting #30 tabs duloxetine 20 mg capsule,delayed 20 mg PO BID #60 caps 10/05/24 release ezetimibe 10 mg tablet 10 mg PO DAILY #45 tabs 12/01/24 dexamethasone 4 mg tablet 10 mg (2.5 x 4 mg) PO DAILY #7 tabs 12/22/24 Allergies Allergy/AdvReac Type Severity Reaction Status Date / Time atorvastatin Allergy Intermediate Swelling Verified 12/22/24 14:39 of Lip/Tongue/Throat Review of Systems Review of Systems Narrative: Pertinent positive and negative findings as per HPI Patient History Medical History Abnormal uterine bleeding (AUB) Migraine Pneumonia involving right lung section wound complication Menorrhagia with irregular cycle Depression (~2008) MRSA (methicillin resistant Staphylococcus aureus) (~2009) Chicken pox (~1997) History of irregular menstrual cycles Surgical History History of dilatation and curettage History of tubal ligation Status post delivery (11/21/16) Status post delivery (01/20/14) Status post delivery (06/20/11) Family History Father Age: 70 Hypertension Social History marital status: household members: spouse and children alcohol intake: never substance use type: does not use alcohol intake frequency: a few times a month Exam Initial Vital Signs Initial Vital Signs: Vital Signs Temperature 98.6 F 12/22/24 14:30 Pulse Rate 72 12/22/24 14:30 Respiratory Rate 16 12/22/24 14:30 Blood Pressure 167/83 H 12/22/24 14:30 Pulse Oximetry 96 12/22/24 14:30 Oxygen Delivery Method Room Air 12/22/24 14:30 General: Healthy appearing, in no acute distress. Able to give a complete and coherent history. Well-nourished well-developed HEENT: Moist mucous membranes, normal sclera with reactive pupils, oropharynx is unremarkable. I do not appreciate any anterior or posterior adenopathy today Neck: Mild tenderness at approximately C4 with reproducible left-sided radicular pain with compression and cervical spine rotation. Some occipital insertion tenderness on the left side that does seem to reproduce her headache Respiratory: Lungs are clear to auscultation, no wheezing no rales no rhonchi. Full and symmetrical air movement Cardiac: Regular rate and rhythm no murmurs no bruits Abdomen: Soft, nontender, no rebound or guarding, no flank pain Skin: Warm and dry, no rashes Neurologic: Grossly neurologically intact with no obvious asymmetries or abnormalities Extremities: No trauma, well perfused Psych: Cooperative, appropriate insight and affect Course Vital Signs Vital signs: Vital Signs - 8 hr 12/22/24 14:30 Temperature 98.6 F Pulse Rate 72 Respiratory Rate 16 Blood Pressure 167/83 H Pulse Oximetry 96 Oxygen Delivery Method Room Air MDM - Headache MDM Narrative Medical decision making narrative: 34-year-old woman with fever headache, neck pain shoulder pain off for the last 5 days. Differential includes meningitis is a consolidating diagnosis however far more likely that she has not upper respiratory infection with cervical radicular pain. She does not have any meningismus symptoms. She is not appear to have migraine. Exam aside from the reproducible cervical radicular pain is unremarkable Lab work that was done by her primary physician on December 17 shows essentially normal CBC, normal erythropoietin levels, abnormal lipid panel In summary I believe this young woman actually has mild upper respiratory infection to explain the fevers, sore throat occasional dizziness. We discussed conservative management for this and was shared decision-making decided against doing any viral testing. She states she did use a home COVID test yesterday and testing was negative there. She also was having a mild exacerbation of her chronic neck pain with cervical radiculopathy. Again with shared decision-making we opted to try a brief course of steroids, 3 days of dexamethasone is prescribed [facility] There is no indication for meningitis, advanced imaging or further blood work. He has no indication for hospitalization. will ask her to follow up with her primary care physician Discharge Plan Departure Patient Disposition: Home Clinical Impression: Cervical radiculopathy Upper respiratory infection Qualifiers: URI type: unspecified viral URI Qualified Code(s): J06.9 - Acute upper respiratory infection, unspecified Instructions: DI for Cervical Radiculopathy Activity Restrictions/Additional Instructions: Thank you for coming in today The fever, headache, sore throat, intermittent dizziness all sound very much like a virus. Your physical exam is quite reassuring. I do not see any signs of bacterial secondary infection that would require antibiotics. Most viruses are going to last 5-7 days. This should be improving Regarding the neck and the arm pain that has been ongoing for the last year, again, on physical exam I did not appreciate significant adenopathy but I was able to reproduce your pain with compression and rotation of your cervical spine. It sounds like you have already done quite a bit of work with your primary care doctor to sort this out. I am going to suggest 3 days of dexamethasone which is a steroid medication to help reduce inflammation and hopefully reduce some of the neck and arm pain. If you find that you are getting worse or develop any new symptoms, please feel free to return to the emergency department for further evaluation. Prescriptions: New dexamethasone 4 mg tablet 10 mg PO DAILY Qty: 7 0RF No Action rizatriptan 10 mg tablet 10 mg PO Q2H MDD 20mg PRN (Reason: migraine headache) Qty: 10 0RF duloxetine 20 mg capsule,delayed release(DR/EC) 20 mg PO BID Qty: 60 11RF chlorthalidone 25 mg tablet 25 mg PO QAM metoprolol succinate 25 mg tablet extended release 24 hr 25 mg PO DAILY ondansetron 4 mg tablet,disintegrating 4 mg PO Q8H PRN (Reason: nausea and vomiting) Qty: 30 3RF ezetimibe 10 mg tablet 10 mg PO DAILY Qty: 45 1RF Rx Instructions: Take one tablet at bedtime - repeat labs in 6 weeks albuterol sulfate 90 mcg/actuation HFA aerosol inhaler 2 puff inhalation Q6H PRN (Reason: shortness of breath or wheezing) Qty: 8.5 0RF Referrals: Juan Antonio Mack MD [Primary Care Provider, Family Practice] Stand Alone Forms: Patient Portal/API
[2024-12-22 15:54] VITALS: BP 137/73; PULSE 56; RESP 16; O2SAT 97
== END 2024-12-22 15:55 | disposition home or self-care (01) ==
PROVIDERS: Emergency Provider Emergency Medicine; Family Provider Family Medicine; PCP Family Medicine
DX: J06.9 Acute upper respiratory infection, unspecified (principal); M54.12 Radiculopathy, cervical region; R50.9 Fever, unspecified
CPT/HCPCS: 99281

== ENCOUNTER → 2025-04-05 11:51 | Outpatient (CLI) | payer BC, SELFPAY ==
--- NOTE | 2025-04-05 11:52 | DI.US.S_ITS ---
PROCEDURE: US PELVIC COMPLETE INDICATIONS: IUD placement TECHNIQUE: Real-time scanning was performed of the pelvic organs, with image documentation. Additional endovaginal scanning was necessary due to incomplete visualization of the adnexal and endometrial structures by transabdominal scanning. COMPARISON: [facility], US, US PELVIC COMPLETE, 05/14/2024, 11:11. FINDINGS: Uterus: Uterus is anteverted and normal in size at 12.0 x 3.5 x 5.0 cm. The myometrium is homogeneous. The endometrium measures 4 mm combined thickness. Intrauterine device appears appropriately positioned. Ovaries: The right ovary measures 3.3 x 1.8 x 2.2 cm, with a calculated ovarian volume of 6.8 cc. The left ovary measures 3.7 x 2.6 x 3.5 cm, with a calculated ovarian volume of 17.5 cc. Left ovarian simple cyst measuring 2.6 x 1.6 x 2.2 cm. The ovaries have a normal sonographic appearance. Less than 12 follicles can be seen in each ovary. No adnexal masses are seen. Other: No pathologic free abdominal or pelvic fluid. IMPRESSION: Intrauterine device appears in appropriate position. Left ovarian simple cyst measuring 2.6 cm. We strive to produce accurate, complete, and clear reports of imaging services. To assist us in improving patient care, this report was composed using standard report templates and voice recognition software. Therefore, it may contain abnormal punctuation, insertions and/or omissions. Occasional wrong-word or sound-alike substitutions may occur. Though we review the report and make efforts to correct it, we do recommend that the report be read carefully in proper context to recognize any text inaccuracies. Dictated by: Kris Markham M.D. on 04/06/2025 at 11:24 Approved by: Kris Markham M.D. on 04/06/2025 at 11:29
== END ==
LOC: US 11:52
PROVIDERS: Family Provider Family Medicine; PCP Family Medicine; Referring Provider Obstetrics & Gynecology; Visit Provider Obstetrics & Gynecology
DX: Z30.431 Encounter for routine checking of intrauterine contraceptive device (principal); N94.10 Unspecified dyspareunia; N83.292 Other ovarian cyst, left side
CPT/HCPCS: 76830; 76856